=== PATIENT | female | born 2005 | race Caucasian/White ===

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

== ENCOUNTER 2025-03-01 09:39 | Outpatient (OUT) | payer OTHER, SELFPAY ==
[2025-03-01 10:01] LABS: Hematocrit 41.6 % (36.0-48.0); Hemoglobin 14.6 g/dL (12.0-16.0); Immature Granulocytes Abs Auto 0.03 10^3/uL (0.00-0.03); Immature Granulocytes Pct Auto 0.3 % (0.0-0.5); Lymphocytes Absolute Auto 2.5 10^3/uL (1.2-3.8); Mean Corpuscular HGB Conc 35.1 g/dL (29.9-35.2); Mean Corpuscular Hemoglobin 31.6 pg (26.7-34.0); Mean Corpuscular Volume 90.0 fL (81.0-99.0); Platelet Count 360 10^3/uL (150-450); Red Blood Count 4.62 10^6/uL (4.20-5.40); White Blood Count 8.7 10^3/uL (4.0-11.0)
[2025-03-01 10:46] LABS: Alanine Aminotransferase 43 U/L (14-59); Albumin Globulin Ratio 1.2; Albumin Level 4.2 g/dL (3.4-5.0); Alkaline Phosphatase 67 U/L (46-116); Anion Gap 15.4; Aspartate Amino Transferase 13 U/L (15-37); Blood Urea Nitrogen 11.0 mg/dL (6.4-19.3); Calcium 9.2 mg/dL (8.5-10.1); Carbon Dioxide 25.7 mmol/L (21.0-32.0); Chloride 104 mmol/L (98-107); Cholesterol 192 mg/dL (104-227); Estimated GFR (African America >60 (>=60 mL/min/1.73m^2); Estimated GFR (Non-African Ame >60 (>=60 mL/min/1.73m^2); Globulin 3.5 g/dL; Glucose 90 mg/dL (74-106); HDL Cholesterol 40 mg/dL (29-69); Potassium 4.1 mmol/L (3.5-5.1); Sodium 141 mmol/L (136-145); Thyroid Stimulating Hormone 1.286 uIU/mL (0.516-4.130); Total Protein 7.7 g/dL (6.4-8.2); Triglycerides 120 mg/dL (53-208); VLDL CHOLESTEROL 24.0 mg/dL
[2025-03-06 13:08] LABS: Calcitriol(1,25 di-OH Vit D) 39.8 pg/mL (24.8-81.5)
== END 2025-03-01 09:40 | disposition home or self-care (01) ==
LOC: LAB 09:41
PROVIDERS: PCP Family Medicine; Visit Provider Nurse Practitioner Psychiatric/Mental Health
DX: F43.10 Post-traumatic stress disorder, unspecified (principal); F41.9 Anxiety disorder, unspecified
CPT/HCPCS: 36415; 80053; 80061; 82652; 84443; 85025

== ENCOUNTER 2025-03-12 14:10 | Emergency (ER) | payer OTHER, SELFPAY ==
[2025-03-12] VITALS (8 sets, daily range): BP systolic 114–123; BP diastolic 57–78; PULSE 87; TEMP 36.6; O2SAT 96–99; BMI 30.7
--- OUTSIDE RECORDS SUMMARY | 2025-03-12 14:19 | XMS_ITS | CCD ---
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 pipe supervisor, Md Primary Care Provider Veronique vailable NRO, CAPRICE Admitting NRO, CAPRICE Primary Attending HANANE OLSEN Primary Attending HANANE OLSEN Admitting NRO, CAMILO Admitting NRO, CAMILO Primary Attending NRO, CAPRICE Admitting Unavailable NRO, CAPRICE Attending Unavailable NRO, CAMILO Admitting Unavailable NRO, CAMILO Attending Unavailable HANANE OLSEN Admitting Unavailable HANANE OLSEN Unavailable NRO, CAMILO Admitting Unavailable NRO, CAMILO Attending Unavailable Ginny WESTBROOK, Ten Zheng Unavailable [phone] Dominik BEAVER, Miriam Primary Care Provider Dominik BEAVER, Miriam Primary Care Provider MaxxRadha alan Unavailable Ten Gross MD Unavailable BONIFACIO BURNS Attending Unavailable CAMILO, MIRIAM Referring Unavailable CAMILO, MIRIAM Primary Care Unavailable DIPPOLD, SUNSHINE Attending Unavailable CAMILO, MIRIAM Referring Unavailable CAMILO, MIRIAM Primary Care Unavailable ALVARENGA, AUGUST ISAAC Attending Unavailable ALVARENGA, AUGUST ISAAC Referring Unavailable CAMILO, MIRIAM Primary Care Unavailable ALVARENGA, AUGUST ISAAC Attending Unavailable ALVARENGA, AUGUST ISAAC Referring Unavailable CAMILO, MIRIAM Primary Care Unavailable [...] CAMILO, MIRIAM Primary Care Unavailable ALVARENGA, AUGUST ISAAC Attending Unavailable CAMILO, MIRIAM Referring Unavailable CAMILO, [...] PAOLA LOPEZ Attending Unavailable Indy Celeste Unavailable Adan Mey Unavailable Rosalba Joe Primary Care Provider Rosalba Joe Attending Unavailab le SHARLENE VASQUEZ Attending Unavail able NO PCP, NO PCP Primary Care Unavailable GEISINGSHARLENE ORELLANA Referring Unavail able NO PCP, NO PCP [...] Unavailable Indy Celeste Unavailable Radha Lilly Unavailable Godfrey Arellanoa Unavailable System, Provider Not In Primary Care Provider Un available Indy Celeste Unavailable Radha Lilly Unavailable Godfrey Arellanoa Unavailable Rice, Merle Unavailable Allergies Allergy Classification Reported Allergen(s) Allergy Type Date of Onset Reaction(s) Facility (5 sources) Environmental allergy Propensity to adverse reactions to substance 2 [facility] Medications Current Medications Medication Drug Class(es) Dates Sig (Normalized) Sig (Original) atomoxetine 40 mg oral capsule (8 sources) Norepinephrine Reuptake Inhibitor Start: 10-01-2021 take 1 capsule by mouth once daily atomoxetine (STRATTERA) 25 MG capsule Take 25 mg by mouth daily 0 10/01/2021 Active Start: 08-14-2021 take 1 capsule by mo [facility] at bedtime atomoxetine (STRATTERA) 40 MG capsule [...] Start: 03-07-2021 take 1 tablet by tatyana once daily escitalopram (LEXAPRO) 10 MG tablet [...] 2 times daily with meals. 0 Active cyxea-2-day-epa-dp a-fish oil 1,050-1,200 mg capsule (5 sources) yxhyd-9-inw-epa- d pa-fish oil 1,050-1,200 mg capsule Take [...] dose:3.0 TAB route:PO frequency:BID polyethylene glycol 3350 95476 mg powder for oral solution (2 sources) [...] 325 MG OR TABS 04/30/2023 [place] [facility] Comment on above: Patient tolerated th erapy [...] 02/24/2022 Active take 1 capsule by mo [facility] three times daily as needed for [...] Anion gap [Moles/Vol] 9 mmol/L Normal 5-15 [facility] Comment on above: Performed By: #### C BCA, 1797-8, CMP, 3040-3, 80311-5, 29821-1 #### [facility] ([id number]) [address], [address] [place] [address] Calcium [Mass/Vol] 9.3 mg/dL Normal 8.5-10.5 [facility] Comment on above: Performed By: #### C BCA, 8-8, CMP, 3040-3, 16365-8, 34604-2 #### [facility] ([id number]) [address], [address] [place] [address] Chloride [Moles/Vol] 107 mmol/L Normal 98-109 [facility] Comment on above: Performed By: #### C BCA, 1798-8, CMP, 3040-3, 08288-0, 50599-6 #### [facility] ([id number]) [address] [address] CO2 [Moles/Vol] 24 mmol/L Normal 22-32 [facility] Comment on above: Performed By: #### C BCA, 8, CMP, 3040-3, 37632-7, 23186-0 #### [facility] ([id number]) [address] [address] Creatinine [Mass/Vol] 0.66 mg/dL Normal 0.30-1.00 [facility] Comment on above: Result Comment: METH OD TRACEABLE TO IDMS STANDARD Performed By: #### C BCA, 8, CMP, 3040-3, 35351-1, 16553-4 #### [facility] ([id number]) [address] [address] eGFR (CKD-EPI) NON-RACE DEPENDENT >90 Normal >59 [facility] Comment on above: Result Comment: Reported eGFR is based on the CKD-EPI 2020 equation that does not use a race coefficient. Performed By: #### C BCA, 8, CMP, 3040-3, 42523-2, 47253-1 #### [facility] ([id number]) [address] [address] Glucose [Mass/Vol] 85 mg/dL Normal 65-99 [facility] Comment on above: Performed By: #### C BCA, 1797-8, CMP, 3040-3, 05685-8, 35776-6 #### [facility] ([id number]) [address] [address] Potassium [Moles/Vol] 3.9 mmol/L Normal 3.5-5.0 [facility] Comment on above: Performed By: #### C BCA, 8, CMP, 3040-3, 61501-9, 64867-5 #### [facility] ([id number]) [address], [address] [place] [address] Sodium [Moles/Vol] 140 mmol/L Normal 134-146 [facility] Comment on above: Performed By: #### C BCA, 8, CMP, 3040-3, 61733-8, 50582-8 #### [facility] ([id number]) [address], [address] [place] [address] Urea nitrogen [Mass/Vol] 10 mg/dL Normal 5-23 [facility] Comment on above: Performed By: #### C BCA, 8, CMP, 3040-3, 85861-6, 93770-9 #### [facility] ([id number]) [address], [address] [place] [address] Beta hydroxybutyrate [Moles/ Vol]on 12-21-2023 BetaHydroxybutyrate 0.12 mmol/L Normal 0.02-0.27 [facility] Comment on above: Performed By: #### C BCA, 8, CMP, 3040-3, 08592-6, 74066-2 #### [facility] ([id number]) [address], [address] [place] [address] CBC AND AUTO DIFFon 12-21-19 24 ABSOLUTE BASOPHIL 0.1 X10E9/L Normal 0.0-0.2 [facility] Comment on above: Performed By: #### C BCA, 8, CMP, 3040-3, 09978-3, 24957-2 #### [facility] ([id number]) [address], [address] [place] [address] ABSOLUTE NEUTROPHIL 5.8 X10E9/L Normal 1.5-6.6 [facility] Comment on above: Performed By: #### C BCA, 1797-8, CMP, 3040-3, 67396-8, 20506-3 #### [facility] ([id number]) [address], [address] [place] [address] Basophils/100 WBC (Bld) 0.6 % Normal [facility] Comment on above: Performed By: #### C BCA, 1797-8, CMP, 3040-3, 52808-8, 09278-3 #### [facility] ([id number]) [address], [address] [place] [address] Eosinophils (Bld) [#/Vol] 0.1 10*3/uL Normal 0.0-0.4 [facility] Comment on above: Performed By: #### C BCA, 1797-8, CMP, 3040-3, 36392-8, 23471-8 #### [facility] ([id number]) [address], [address] [place] [address] Eosinophils/100 WBC (Bld) 1.0 % Normal [facility] Comment on above: Performed By: #### C BCA, 8, CMP, 3040-3, 73144-0, 98883-4 #### [facility] ([id number]) [address], [facility] [address] [place] [address] Erythrocyte distribution width (RBC) [Ratio] 13.0 % Normal 11.5-15.0 [facility] Comment on above: Performed By: #### C BCA, 1797-8, CMP, 3040-3, 97454-9, 20958-2 #### [facility] ([id number]) [address], [address] [place] [address] Hematocrit (Bld) [Volume fraction] 41.1 % Normal 35-47 [facility] Comment on above: Performed By: #### C BCA, 1797-8, CMP, 3040-3, 82481-2, 28656-5 #### [facility] ([id number]) [address], [address] [place] [address] Hemoglobin (Bld) [Mass/Vol] 14.6 g/dL Normal 11.7-15.5 [facility] Comment on above: Performed By: #### C BCA, 1798-8, CMP, 3040-3, 32521-7, 55940-0 #### [facility] ([id number]) [address], [address] [place] [address] Lymphocytes (Bld) [#/Vol] 2.9 10*3/uL Normal 1.0-3.5 [facility] Comment on above: Performed By: #### C BCA, 8-8, CMP, 3040-3, 38403-5, 50415-4 #### [facility] ([id number]) [address], [address] [place] [address] Lymphocytes/100 WBC (Bld) 29.6 % Normal [facility] Comment on above: Performed By: #### C BCA, 1797-8, CMP, 3040-3, 85131-4, 99909-9 #### [facility] ([id number]) [address], [address] [place] [address] MCH (RBC) [Entitic mass] 32.3 pg Normal 27-34 [facility] Comment on above: Performed By: #### C BCA, 8-8, CMP, 3040-3, 23705-1, 80418-3 #### [facility] ([id number]) [address], [address] [place] [address] MCHC (RBC) [Mass/Vol] 35.5 g/dL Normal 32-36 [facility] Comment on above: Performed By: #### C BCA, 1798-8, CMP, 3040-3, 07112-9, 55291-5 #### [facility] ([id number]) [address], [address] [place] [address] MCV (RBC) [Entitic vol] 91 fL Normal 80-100 [facility] Comment on above: Performed By: #### Marilyn BCA, 1797-8, CMP, 3040-3, 06869-4, 44160-3 #### [facility] ([id number]) [address], [address] [place] [address] Monocytes (Bld) [#/Vol] 0.9 10*3/uL Normal 0-0.9 [facility] Comment on above: Performed By: #### Marilyn MICHAUD, 1797-8, CMP, 3040-3, 55286-3, 58349-3 #### [facility] ([id number]) [address], [facility] [address] [place] [address] Monocytes/100 WBC (Bld) 8.9 % Normal [facility] Comment on above: Performed By: #### Marilyn BCA, 8, CMP, 3040-3, 61244-3, 46260-5 #### [facility] ([id number]) [address], [facility] [address] [place] [address] Neutrophils/100 WBC (Bld) 59.9 % Normal [facility] Comment on above: Performed By: #### Marilyn MICHAUD, 1797-8, CMP, 3040-3, 39911-2, 80688-4 #### [facility] ([id number]) [address], [address] [place] [address] Platelet mean volume (Bld) [Entitic vol] 7.2 fL Normal 7-12 [facility] Comment on above: Performed By: #### Marilyn BCA, 1797-8, CMP, 3040-3, 68260-6, 25303-0 #### [facility] ([id number]) [address], [address] [place] [address] Platelets (Bld) [#/Vol] 371 10*3/uL Normal 150-450 [facility] Comment on above: Performed By: #### C BCA, 8, CMP, 3040-3, 37448-9, 50241-9 #### [facility] ([id number]) [address], [address] [place] [address] RBC COUNT 4.51 X10E12/L Normal 3.80-5.20 [facility] Comment on above: Performed By: #### C BCA, 8, CMP, 3040-3, 28251-2, 85063-6 #### [facility] ([id number]) [address], [address] [place] [address] WBC (Bld) [#/Vol] 9.8 10*3/uL Normal 4.0-11.0 [facility] Comment on above: Performed By: #### Marilyn MICHAUD, 1797-12, CMP, 3040-3, 53555-6, 24456-5 #### [facility] ([id number]) [address], [address] [place] [address] Glucose Glucometer (BldC) [M ass/Vol]on 12-21-2023 Glucose [Mass/Vol] 80 mg/dL Normal 65-99 [facility] Glucose [Mass/Vol] 97 mg/dL Normal 65-99 [facility] HCG ( test) Ql (U)o n 12-21-2023 Beta HCG ( test) Ql (U) Negative Normal NEG [facility] Comment on above: Performed By: #### C BCA, 8, CMP, 3040-3, 77434-1, 18040-8 #### [facility] ([id number]) [address], [address] [place] [address] MAGNESIUMon 12-21-2023 Magnesium [Mass/Vol] 2.0 mg/dL Normal 1.8-2.6 [facility] Comment on above: Performed By: #### C JASWANT, 1798-8, CMP, 3040-3, 99729-0, 94275-7 #### [facility] ([id number]) [address], [address] [place] [address] THYROID PROFILEon 12-21-2023 Free T4 [Mass/Vol] 0.82 ng/dL Normal 0.61-1.60 [facility] Comment on above: Performed By: #### C BCA, 8-8, CMP, 3040-3, 25905-5, 94339-7 #### [facility] ([id number]) [address], [address] [place] [address] TSH 0.86 uIU/mL Normal 0.49-4.67 [facility] Comment on above: Performed By: #### C BCA, 1797-8, CMP, 3040-3, 16272-2, 41420-2 #### [facility] ([id number]) [address], [address] [place] [address] URN MACROSCOPIC NURon 2023 BILIRUBIN KATTY Negative Normal NEG [facility] Comment on above: Performed By: #### C BCA, 1797-8, CMP, 3040-3, 62109-1, 54257-9 #### [facility] ([id number]) [address], [address] [place] [address] BLOOD/HGB KATTY Negative Normal NEG [facility] Comment on above: Performed By: #### C BCA, 8-8, CMP, 3040-3, 32778-1, 76644-0 #### [facility] ([id number]) [address], [address] [place] [address] GLUCOSE KATTY Negative Normal NEG [facility] Comment on above: Performed By: #### C BCA, 8-8, CMP, 3040-3, 28333-3, 95862-4 #### [facility] ([id number]) [address], [address] [place] [address] KETONES KATTY Trace Abnormal NEG [facility] Comment on above: Performed By: #### C BCA, 1798-8, CMP, 3040-3, 93541-6, 42029-2 #### [facility] ([id number]) [address], [address] [place] [address] LEUKOCYTE ESTERASE KATTY Negative Normal NEG [facility] Comment on above: Performed By: #### C BCA, 8-8, CMP, 3040-3, 57392-6, 35618-8 #### [facility] ([id number]) [address], [address] [place] [address] NITRITE KATTY Negative Normal NEG [facility] Comment on above: Performed By: #### Marilyn BCA, 1797-8, CMP, 3040-3, 98909-6, 51460-8 #### [facility] ([id number]) [address], [address] [place] [address] PH KATTY 5.5 Normal 5.0-8.5 [facility] Comment on above: Performed By: #### C BCA, 8-8, CMP, 3040-3, 09272-3, 54667-2 #### [facility] ([id number]) [address], [address] [place] [address] PROTEIN KATTY Negative Normal NEG [facility] Comment on above: Performed By: #### C BCA, 8-8, CMP, 3040-3, 24563-2, 73235-5 #### [facility] ([id number]) [address], [address] [place] [address] SPECIFIC GRAVITY KATTY >=1.030 Normal 1.003-1.035 [facility] Comment on above: Performed By: #### C BCA, 1798-8, CMP, 3040-3, 15560-1, 07888-2 #### [facility] ([id number]) [address], [address] [place] [address] UROBILINOGEN KATTY 0.2 eu/dL Normal <1.1 [facility] Comment on above: Performed By: #### C JASWANT, 1797-8, CMP, 3040-3, 46118-6, 34480-0 #### [facility] ([id number]) [address], [address] [place] [address] Urine collection deviceon ER EXTRA URINES ER EXTRA URINE ORDER IN PROCESS Normal [facility] XR ANKLE RT MIN 3 VWSon XR [...] Doshi MD on 12/07/2023 1:05 PM Normal [facility] CBC AND AUTO DIFFon 11-04-19 24 ABSOLUTE BASOPHIL 0.1 X10E9/L Normal 0.0-0.2 [facility] Comment on above: Performed By: #### C JASWANT, 8, CMP, 3040-3, 77172-2, 46618-5 #### [facility] ([id number]) [address], [address] [place] [address] ABSOLUTE NEUTROPHIL 3.8 X10E9/L Normal 1.5-6.6 [facility] Comment on above: Performed By: #### C JASWANT, 1797-8, CMP, 3040-3, 09562-8, 37950-2 #### [facility] ([id number]) [address], [address] [place] [address] Basophils/100 WBC (Bld) 0.8 % Normal [facility] Comment on above: Performed By: #### C BCA, 1797-8, CMP, 3040-3, 20486-7, 08772-8 #### [facility] ([id number]) [address], [address] [place] [address] Eosinophils (Bld) [#/Vol] 0.1 10*3/uL Normal 0.0-0.4 [facility] Comment on above: Performed By: #### C BCA, 1797-8, CMP, 3040-3, 78427-7, 28813-6 #### [facility] ([id number]) [address], [address] [place] [address] Eosinophils/100 WBC (Bld) 1.3 % Normal [facility] Comment on above: Performed By: #### C BCA, 8, CMP, 3040-3, 19438-0, 17710-2 #### [facility] ([id number]) [address], [address] [place] [address] Erythrocyte distribution width (RBC) [Ratio] 12.8 % Normal 11.5-15.0 [facility] Comment on above: Performed By: #### C BCA, 8, CMP, 3040-3, 77616-6, 19456-4 #### [facility] ([id number]) [address], [address] [place] [address] Hematocrit (Bld) [Volume fraction] 41.7 % Normal 34-44 [facility] Comment on above: Performed By: #### C BCA, 1797-8, CMP, 3040-3, 06763-2, 47571-7 #### [facility] ([id number]) [address], [address] [place] [address] Hemoglobin (Bld) [Mass/Vol] 14.4 g/dL Normal 11.7-15.5 [facility] Comment on above: Performed By: #### C BCA, 1797-8, CMP, 3040-3, 32175-2, 11614-7 #### [facility] ([id number]) [address], [address] [place] [address] Lymphocytes (Bld) [#/Vol] 2.8 10*3/uL Normal 1.0-3.5 [facility] Comment on above: Performed By: #### C BCA, 1797-8, CMP, 3040-3, 63126-5, 22394-6 #### [facility] ([id number]) [address], [facility] [address] [place] [address] Lymphocytes/100 WBC (Bld) 37.2 % Normal [facility] Comment on above: Performed By: #### C BCA, 1797-8, CMP, 3040-3, 66232-2, 48672-2 #### [facility] ([id number]) [address], [address] [place] [address] MCH (RBC) [Entitic mass] 31.7 pg Normal 26-33.5 [facility] Comment on above: Performed By: #### C BCA, 8, CMP, 3040-3, 11960-9, 02411-4 #### [facility] ([id number]) [address], [address] [place] [address] MCHC (RBC) [Mass/Vol] 34.5 g/dL Normal 32-36 [facility] Comment on above: Performed By: #### C BCA, 1797-8, CMP, 3040-3, 21955-5, 29582-0 #### [facility] ([id number]) [address], [address] [place] [address] MCV (RBC) [Entitic vol] 92 fL Normal 78-98 [facility] Comment on above: Performed By: #### C BCA, 1797-8, CMP, 3040-3, 38686-9, 93442-0 #### [facility] ([id number]) [address], [address] [place] [address] Monocytes (Bld) [#/Vol] 0.8 10*3/uL Normal 0-0.9 [facility] Comment on above: Performed By: #### C BCA, 1797-8, CMP, 3040-3, 07117-7, 89399-7 #### [facility] ([id number]) [address], [address] [place] [address] Monocytes/100 WBC (Bld) 10.8 % Normal [facility] Comment on above: Performed By: #### Marilyn BCA, 1797-8, CMP, 3040-3, 98670-8, 87302-2 #### [facility] ([id number]) [address], [address] [place] [address] Neutrophils/100 WBC (Bld) 49.9 % Normal [facility] Comment on above: Performed By: #### Marilyn BCA, 1797-8, CMP, 3040-3, 05501-1, 11488-2 #### [facility] ([id number]) [address], [address] [place] [address] Platelet mean volume (Bld) [Entitic vol] 7.5 fL Normal 7-12 [facility] Comment on above: Performed By: #### C BCA, 1797-8, CMP, 3040-3, 38481-9, 50843-1 #### [facility] ([id number]) [address], [address] [place] [address] Platelets (Bld) [#/Vol] 370 10*3/uL Normal 150-450 [facility] Comment on above: Performed By: #### C BCA, 8-8, CMP, 3040-3, 90009-6, 10413-2 #### [facility] ([id number]) [address], [address] [place] [address] RBC COUNT 4.54 X10E12/L Normal 3.90-5.10 [facility] Comment on above: Performed By: #### C BCA, 1798-8, CMP, 3040-3, 81881-4, 51169-6 #### [facility] ([id number]) [address], [address] [place] [address] WBC (Bld) [#/Vol] 7.6 10*3/uL Normal 4.5-11.5 [facility] Comment on above: Performed By: #### C BCA, 1798-8, CMP, 3040-3, 14628-5, 16755-6 #### [facility] ([id number]) [address] [place] [address] COMPREHENSIVE METABOLIC PANE Jethro 11-04-2023 Albumin [Mass/Vol] 4.7 g/dL Normal 3.2-5.3 [facility] Comment on above: Performed By: #### C BCA, 1798-8, CMP, 3040-3, 69487-7, 63122-1 #### [facility] ([id number]) [address], [address] [place] [address] ALP [Catalytic activity/Vol] 63 U/L Normal 48-96 [facility] Comment on above: Performed By: #### C BCA, 1798-8, CMP, 3040-3, 69792-9, 34319-1 #### [facility] ([id number]) [address], [address] [place] [address] ALT [Catalytic activity/Vol] 31 U/L Normal 0-31 [facility] Comment on above: Performed By: #### C BCA, 1798-8, CMP, 3040-3, 88635-2, 82430-2 #### [facility] ([id number]) [address], [address] [place] [address] Anion gap [Moles/Vol] 9 mmol/L Normal 5-15 [facility] Comment on above: Performed By: #### C BCA, 1797-8, CMP, 3040-3, 94508-7, 96262-0 #### [facility] ([id number]) [address], [address] [place] [address] AST [Catalytic activity/Vol] 23 U/L Normal 0-41 [facility] Comment on above: Performed By: #### C BCA, 1797-8, CMP, 3040-3, 15246-7, 88679-0 #### [facility] ([id number]) [address], [address] [place] [address] Bilirubin [Mass/Vol] 0.5 mg/dL Normal 0.3-1.2 [facility] Comment on above: Performed By: #### C BCA, 8, CMP, 3040-3, 18938-1, 29021-6 #### [facility] ([id number]) [address], [address] [place] [address] Calcium [Mass/Vol] 9.9 mg/dL Normal 8.5-10.5 [facility] Comment on above: Performed By: #### C BCA, 1797-8, CMP, 3040-3, 14337-4, 87050-6 #### [facility] ([id number]) [address], [address] [place] [address] Chloride [Moles/Vol] 108 mmol/L Normal 98-109 [facility] Comment on above: Performed By: #### C BCA, 1797-8, CMP, 3040-3, 59989-8, 88773-8 #### [facility] ([id number]) [address], [address] [place] [address] CO2 [Moles/Vol] 24 mmol/L Normal 22-32 [facility] [facility] Comment on above: Performed By: #### C BCA, 1797-8, CMP, 3040-3, 94378-6, 47156-4 #### [facility] ([id number]) [address], [address] [place] [address] Creatinine [Mass/Vol] 0.63 mg/dL Normal 0.30-1.00 [facility] Comment on above: Result Comment: METH OD TRACEABLE TO IDMS STANDARD Performed By: #### C BCA, 1797-8, CMP, 3040-3, 07649-0, 09276-8 #### [facility] ([id number]) [address], [address] [place] [address] Glucose [Mass/Vol] 73 mg/dL Normal 65-99 [facility] Comment on above: Performed By: #### C BCA, 1797-8, CMP, 3040-3, 28089-5, 34901-7 #### [facility] ([id number]) [address], [address] [place] [address] Potassium [Moles/Vol] 4.0 mmol/L Normal 3.5-5.0 [facility] Comment on above: Performed By: #### C BCA, 1797-8, CMP, 3040-3, 99590-7, 95886-0 #### [facility] ([id number]) [address], [address] [place] [address] Protein [Mass/Vol] 7.3 g/dL Normal 6.0-8.0 [facility] Comment on above: Performed By: #### C BCA, 1797-8, CMP, 3040-3, 83978-0, 55783-3 #### [facility] ([id number]) [address], [address] [place] [address] Sodium [Moles/Vol] 141 mmol/L Normal 134-146 [facility] Comment on above: Performed By: #### C BCA, 8-8, CMP, 3040-3, 24938-1, 19559-9 #### [facility] ([id number]) [address], [address] [place] [address] Urea nitrogen [Mass/Vol] 11 mg/dL Normal 5-23 [facility] Comment on above: Performed By: #### C BCA, 8-8, CMP, 3040-3, 90576-2, 44708-7 #### [facility] ([id number]) [address], [address] [place] [address] TSH Qnon 11-04-2023 TSH 1.44 uIU/mL Normal 0.68-3.35 [facility] Comment on above: Performed By: #### C BCA, 1797-8, CMP, 3040-3, 94929-3, 16102-3 #### [facility] ([id number]) [address], [address] [place] [address] URINALYSISon 11-04-2023 Bilirubin Ql (U) Negative Normal NEG [facility] Comment on above: Performed By: #### C BCA, 1797-8, CMP, 3040-3, 54329-8, 89843-8 #### [facility] ([id number]) [address], [address] [place] [address] BLOOD/HGB MODERATE Abnormal NEG [facility] Comment on above: Performed By: #### C BCA, 8-8, CMP, 3040-3, 84494-5, 95637-2 #### [facility] ([id number]) [address], [address] [place] [address] Color (U) YELLOW Normal YELLOW [facility] Comment on above: Performed By: #### C BCA, 8-8, CMP, 3040-3, 53270-8, 85497-5 #### [facility] ([id number]) [address], [address] [place] [address] Glucose Ql (U) Negative Normal NEG [facility] Comment on above: Performed By: #### C BCA, 1798-8, CMP, 3040-3, 06898-6, 85772-5 #### [facility] ([id number]) [address], [address] [place] [address] Ketones Ql (U) Negative Normal NEG [facility] Comment on above: Performed By: #### C BCA, 8-8, CMP, 3040-3, 72884-2, 60688-9 #### [facility] ([id number]) [address], [address] [place] [address] Leukocyte esterase Test strip Ql (U) Negative Normal NEG [facility] Comment on above: Performed By: #### Marilyn BCA, 8-8, CMP, 3040-3, 87705-5, 33890-2 #### [facility] ([id number]) [address], [address] [place] [address] MUCOUS PRESENT Abnormal NONE [facility] Comment on above: Performed By: #### C BCA, 8-8, CMP, 3040-3, 95703-1, 51244-8 #### [facility] ([id number]) [address], [address] [place] [address] Nitrite Ql (U) Negative Normal NEG [facility] Comment on above: Performed By: #### C BCA, 8-8, CMP, 3040-3, 85154-2, 64937-4 #### [facility] ([id number]) [address], [address] [place] [address] pH (U) 6.0 [pH] Normal 5.0-8.5 [facility] Comment on above: Performed By: #### C BCA, 8-8, CMP, 3040-3, 72331-7, 95179-8 #### [facility] ([id number]) [address], [address] [place] [address] Protein Ql (U) Negative Normal NEG [facility] Comment on above: Performed By: #### C BCA, 8-8, CMP, 3040-3, 98817-3, 61813-7 #### [facility] ([id number]) [address], [address] [place] [address] R.B.CELLS 1 /hpf Normal 0-5 [facility] Comment on above: Performed By: #### C BCA, 1797-8, CMP, 3040-3, 28695-6, 34464-7 #### [facility] ([id number]) [address], [address] [place] [address] Specific gravity (U) [Rel density] 1.018 Normal 1.003-1.035 [facility] Comment on above: Performed By: #### C BCA, 1797-8, CMP, 3040-3, 38133-8, 63373-7 #### [facility] ([id number]) [address], [address] [place] [address] SQUAMOUS EPITHELIUM <1 Normal 0-5 [facility] Comment on above: Performed By: #### C BCA, 1797-8, CMP, 3040-3, 06156-9, 84948-0 #### [facility] ([id number]) [address], [address] [place] [address] TURBIDITY CLEAR Normal CLEAR [facility] Comment on above: Performed By: #### C BCA, 8-8, CMP, 3040-3, 93003-2, 86942-0 #### [facility] ([id number]) [address], [address] [place] [address] Urobilinogen (U) [Mass/Vol] mg/dL Normal <1.1 [facility] Comment on above: Performed By: #### C JASWANT, 1797-8, CMP, 3040-3, 46070-3, 40639-1 #### [facility] ([id number]) [address], [address] [place] [address] W.B.CELLS 1 /hpf Normal 0-5 [facility] Comment on above: Performed By: #### C BCA, 1797-8, CMP, 3040-3, 17910-9, 56014-0 #### [facility] ([id number]) [address], [address] [place] [address] AMYLASEon 10-22-2023 Amylase [Catalytic activity/Vol] 25 U/L Low 28-100 [facility] Comment on above: Performed By: #### Marilyn MICHAUD, 8, CMP, 3040-3, 45271-6, 27873-4 #### [facility] ([id number]) [address], [address] [place] [address] CBC AND AUTO DIFFon 10-22-19 ABSOLUTE BASOPHIL 0.0 X10E9/L Normal 0.0-0.2 [facility] Comment on above: Performed By: #### C JASWANT, 8, CMP, 3040-3, 24030-7, 24483-9 #### [facility] ([id number]) [address], [address] [place] [address] ABSOLUTE NEUTROPHIL 5.9 X10E9/L Normal 1.5-6.6 [facility] Comment on above: Performed By: #### C BCA, 1797-8, CMP, 3040-3, 96233-1, 00806-3 #### [facility] ([id number]) [address], [address] [place] [address] Basophils/100 WBC (Bld) 0.5 % Normal [facility] Comment on above: Performed By: #### C BCA, 1797-8, CMP, 3040-3, 59874-0, 53441-2 #### [facility] ([id number]) [address] [address] Eosinophils (Bld) [#/Vol] 0.1 10*3/uL Normal 0.0-0.4 [facility] Comment on above: Performed By: #### C BCA, 1797-8, CMP, 3040-3, 83778-6, 40357-1 #### [facility] ([id number]) [address] [address] Eosinophils/100 WBC (Bld) 1.2 % Normal [facility] Comment on above: Performed By: #### C BCA, 8, CMP, 3040-3, 11227-6, 48319-0 #### [facility] ([id number]) [address] [address] Erythrocyte distribution width (RBC) [Ratio] 13.0 % Normal 11.5-15.0 [facility] Comment on above: Performed By: #### C BCA, 8, CMP, 3040-3, 77170-0, 83924-8 #### [facility] ([id number]) [address] [address] Hematocrit (Bld) [Volume fraction] 40.9 % Normal 34-44 [facility] Comment on above: Performed By: #### C BCA, 1797-8, CMP, 3040-3, 33729-9, 47324-9 #### [facility] ([id number]) [address] [address] Hemoglobin (Bld) [Mass/Vol] 14.3 g/dL Normal 11.7-15.5 [facility] Comment on above: Performed By: #### C BCA, 1797-8, CMP, 3040-3, 67868-2, 29228-7 #### [facility] ([id number]) [address], [address] [place] [address] Lymphocytes (Bld) [#/Vol] 2.7 10*3/uL Normal 1.0-3.5 [facility] Comment on above: Performed By: #### C BCA, 1797-8, CMP, 3040-3, 07927-7, 44643-5 #### [facility] ([id number]) [address], [address] [place] [address] Lymphocytes/100 WBC (Bld) 28.4 % Normal [facility] Comment on above: Performed By: #### C BCA, 1797-8, CMP, 3040-3, 56284-8, 49294-5 #### [facility] ([id number]) [address], [address] [place] [address] MCH (RBC) [Entitic mass] 31.9 pg Normal 26-33.5 [facility] Comment on above: Performed By: #### C BCA, 1797-8, CMP, 3040-3, 89379-1, 69847-8 #### [facility] ([id number]) [address], [address] [place] [address] MCHC (RBC) [Mass/Vol] 34.9 g/dL Normal 32-36 [facility] Comment on above: Performed By: #### C BCA, 8-8, CMP, 3040-3, 92409-6, 37544-1 #### [facility] ([id number]) [address], [facility] [address] [place] [address] MCV (RBC) [Entitic vol] 92 fL Normal 78-98 [facility] Comment on above: Performed By: #### C BCA, 8-8, CMP, 3040-3, 89851-0, 88279-8 #### [facility] ([id number]) [address], [address] [place] [address] Monocytes (Bld) [#/Vol] 0.7 10*3/uL Normal 0-0.9 [facility] Comment on above: Performed By: #### C BCA, 8-8, CMP, 3040-3, 35248-6, 86893-4 #### [facility] ([id number]) [address], [address] [place] [address] Monocytes/100 WBC (Bld) 7.8 % Normal [facility] Comment on above: Performed By: #### Marilyn BCA, 1797-8, CMP, 3040-3, 75342-8, 06218-3 #### [facility] ([id number]) [address], [address] [place] [address] Neutrophils/100 WBC (Bld) 62.1 % Normal [facility] Comment on above: Performed By: #### Marilyn BCA, 1797-8, CMP, 3040-3, 01681-3, 98087-1 #### [facility] ([id number]) [address], [address] [place] [address] Platelet mean volume (Bld) [Entitic vol] 6.8 fL Low 7-12 [facility] Comment on above: Performed By: #### Marilyn BCA, 1797-8, CMP, 3040-3, 78001-1, 16919-4 #### [facility] ([id number]) [address], [address] [place] [address] Platelets (Bld) [#/Vol] 348 10*3/uL Normal 150-450 [facility] Comment on above: Performed By: #### C BCA, 1797-8, CMP, 3040-3, 86750-2, 67010-1 #### [facility] ([id number]) [address], [address] [place] [address] RBC COUNT 4.46 X10E12/L Normal 3.90-5.10 [facility] Comment on above: Performed By: #### C BCA, 1798-8, CMP, 3040-3, 49187-6, 14474-6 #### [facility] ([id number]) [address], [address] [place] [address] WBC (Bld) [#/Vol] 9.5 10*3/uL Normal 4.5-11.5 [facility] Comment on above: Performed By: #### C BCA, 8-8, CMP, 3040-3, 18919-0, 36625-7 #### [facility] ([id number]) [address], [address] [place] [address] COMPREHENSIVE METABOLIC PANE Jehtro 10-22-2023 Albumin [Mass/Vol] 4.4 g/dL Normal 3.2-5.3 [facility] Comment on above: Performed By: #### C BCA, 8-8, CMP, 3040-3, 86605-6, 93301-3 #### [facility] ([id number]) [address], [address] [place] [address] ALP [Catalytic activity/Vol] 61 U/L Normal 48-96 [facility] Comment on above: Performed By: #### C BCA, 8-8, CMP, 3040-3, 06816-4, 79354-2 #### [facility] ([id number]) [address], [address] [place] [address] ALT [Catalytic activity/Vol] 27 U/L Normal 0-31 [facility] Comment on above: Performed By: #### C BCA, 1798-8, CMP, 3040-3, 22210-8, 13795-9 #### [facility] ([id number]) [address], [address] [place] [address] Anion gap [Moles/Vol] 9 mmol/L Normal 5-15 [facility] [place] [facility] Comment on above: Performed By: #### C BCA, 1797-8, CMP, 3040-3, 39944-6, 42766-2 #### [facility] ([id number]) [address], [address] [place] [address] AST [Catalytic activity/Vol] 25 U/L Normal 0-41 [facility] Comment on above: Performed By: #### C BCA, 1797-8, CMP, 3040-3, 62792-8, 09240-0 #### [facility] ([id number]) [address], [address] [place] [address] Bilirubin [Mass/Vol] 0.5 mg/dL Normal 0.3-1.2 [facility] Comment on above: Performed By: #### C BCA, 8, CMP, 3040-3, 07244-6, 97054-9 #### [facility] ([id number]) [address], [address] [place] [address] Calcium [Mass/Vol] 9.6 mg/dL Normal 8.5-10.5 [facility] Comment on above: Performed By: #### C BCA, 8, CMP, 3040-3, 06341-9, 05767-9 #### [facility] ([id number]) [address], [address] [place] [address] Chloride [Moles/Vol] 106 mmol/L Normal 98-109 [facility] Comment on above: Performed By: #### C BCA, 1797-8, CMP, 3040-3, 45338-9, 57132-2 #### [facility] ([id number]) [address], [address] [place] [address] CO2 [Moles/Vol] 25 mmol/L Normal 22-32 [facility] Comment on above: Performed By: #### C BCA, 1798-8, CMP, 3040-3, 90666-6, 10519-4 #### [facility] ([id number]) [address], [address] [place] [address] Creatinine [Mass/Vol] 0.66 mg/dL Normal 0.30-1.00 [facility] Comment on above: Result Comment: METH OD TRACEABLE TO IDMS STANDARD Performed By: #### C BCA, 1797-8, CMP, 3040-3, 35329-6, 50678-1 #### [facility] ([id number]) [address], [address] [place] [address] Glucose [Mass/Vol] 81 mg/dL Normal 65-99 [facility] Comment on above: Performed By: #### C BCA, 1797-8, CMP, 3040-3, 85041-2, 77367-5 #### [facility] ([id number]) [address], [address] [place] [address] Potassium [Moles/Vol] 4.1 mmol/L Normal 3.5-5.0 [facility] Comment on above: Performed By: #### C BCA, 8, CMP, 3040-3, 65627-1, 90330-0 #### [facility] ([id number]) [address], [address] [place] [address] Protein [Mass/Vol] 7.0 g/dL Normal 6.0-8.0 [facility] Comment on above: Performed By: #### C BCA, 1797-8, CMP, 3040-3, 78603-7, 03518-7 #### [facility] ([id number]) [address], [address] [place] [address] Sodium [Moles/Vol] 140 mmol/L Normal 134-146 [facility] Comment on above: Performed By: #### C BCA, 1797-8, CMP, 3040-3, 92083-1, 14585-8 #### [facility] ([id number]) [address], [address] [place] [address] Urea nitrogen [Mass/Vol] 15 mg/dL Normal 10-21 [facility] Comment on above: Performed By: #### C BCA, 1798-8, CMP, 3040-3, 30930-3, 26946-5 #### [facility] ([id number]) [address], [address] [place] [address] CT ABDOMEN AND PELVIS W CONT on [...] Fischer MD on 10/22/2023 7:56 PM Normal [facility] CT BRAIN WO CONTon CT BRAIN WO [...] Montanez MD on 10/22/2023 2:57 PM Normal [facility] CT CERVICAL SPINE WO CONTon 10-22-2023 CT [...] Montanez MD on 10/22/2023 2:58 PM Normal [facility] Fibrinogen Coagulation.deriv ed (PPP) [Mass/Vol]on 10-22-2023 FIBRINOGEN 215 mg/dL Normal 190-480 [facility] Comment on above: Performed By: #### C BCA, 1798-8, CMP, 3040-3, 89066-2, 76754-0 #### [facility] ([id number]) [address], [address] [place] [address] HCG ( test) IA.adair d Ql (S)on 10-22-2023 SERUM Negative Normal NEG [facility] Comment on above: Performed By: #### C BCA, 1798-8, CMP, 3040-3, 42049-6, 00529-0 #### [facility] ([id number]) [address], [address] [place] [address] LIPASEon 10-22-2023 Lipase [Catalytic activity/Vol] 21 U/L Normal 11-82 [facility] Comment on above: Performed By: #### C BCA, 1798-8, CMP, 3040-3, 87657-3, 75421-5 #### [facility] ([id number]) [address], [address] [place] [address] URINALYSISon 10-22-2023 Bilirubin Ql (U) Negative Normal NEG [facility] Comment on above: Performed By: #### C BCA, 1798-8, CMP, 3040-3, 68584-3, 84150-9 #### [facility] ([id number]) [address], [address] [place] [address] BLOOD/HGB MODERATE Abnormal NEG [facility] Comment on above: Performed By: #### C BCA, 1798-8, CMP, 3040-3, 72429-9, 97831-2 #### [facility] ([id number]) [address], [address] [place] [address] Color (U) YELLOW Normal YELLOW [facility] Comment on above: Performed By: #### C BCA, 1797-8, CMP, 3040-3, 30519-9, 19061-7 #### [facility] ([id number]) [address], [address] [place] [address] Glucose Ql (U) Negative Normal NEG [facility] Comment on above: Performed By: #### C BCA, 1797-8, CMP, 3040-3, 40514-6, 17155-1 #### [facility] ([id number]) [address], [address] [place] [address] Ketones Ql (U) Negative Normal NEG [facility] Comment on above: Performed By: #### C BCA, 1798-8, CMP, 3040-3, 01365-6, 82519-1 #### [facility] ([id number]) [address], [address] [place] [address] Leukocyte esterase Test strip Ql (U) Negative Normal NEG [facility] Comment on above: Performed By: #### C BCA, 8-8, CMP, 3040-3, 88935-8, 20104-1 #### [facility] ([id number]) [address], [address] [place] [address] MUCOUS PRESENT Abnormal NONE [facility] Comment on above: Performed By: #### C BCA, 1797-8, CMP, 3040-3, 42694-1, 45575-7 #### [facility] ([id number]) [address], [address] [place] [address] Nitrite Ql (U) Negative Normal NEG [facility] Comment on above: Performed By: #### C BCA, 1797-8, CMP, 3040-3, 45707-3, 73053-3 #### [facility] ([id number]) [address], [address] [place] [address] pH (U) 6.0 [pH] Normal 5.0-8.5 [facility] Comment on above: Performed By: #### C BCA, 1797-8, CMP, 3040-3, 93551-3, 59297-2 #### [facility] ([id number]) [address], [address] [place] [address] Protein Ql (U) Negative Normal NEG [facility] Comment on above: Performed By: #### C BCA, 1797-8, CMP, 3040-3, 46004-4, 37587-7 #### [facility] ([id number]) [address], [address] [place] [address] R.B.CELLS <1 Normal 0-5 [facility] Comment on above: Performed By: #### C BCA, 8-8, CMP, 3040-3, 52071-1, 38407-1 #### [facility] ([id number]) [address], [address] [place] [address] Specific gravity (U) [Rel density] 1.019 Normal 1.003-1.035 [facility] Comment on above: Performed By: #### Marilyn BCA, 1798-8, CMP, 3040-3, 49684-7, 49186-2 #### [facility] ([id number]) [address] [address] SQUAMOUS EPITHELIUM 1 /hpf Normal 0-5 [facility] Comment on above: Performed By: #### Marilyn BCA, 8-8, CMP, 3040-3, 48367-5, 26894-7 #### [facility] ([id number]) [address] [address] TURBIDITY CLEAR Normal CLEAR [facility] Comment on above: Performed By: #### Marilyn BCA, 1797-8, CMP, 3040-3, 04545-3, 81513-6 #### [facility] ([id number]) [address] [address] Urobilinogen (U) [Mass/Vol] mg/dL Normal <1.1 [facility] Comment on above: Performed By: #### Marilyn BCA, 8-8, CMP, 3040-3, 99831-3, 81398-2 #### [facility] ([id number]) [address] [address] W.B.CELLS 1 /hpf Normal 0-5 [facility] Comment on above: Performed By: #### Marilyn BCA, 8-8, CMP, 3040-3, 58627-4, 81104-9 #### [facility] ([id number]) [address] [address] XR FEMUR LT 2+ VIEWSon 10-21 XR FEMUR LT 2+ VIEWS XR FEMUR LT 2+ VIEW S XR FEMUR LT 2+ VIEWS INDICATION: major traumatic injury; Trauma. Left leg pain FINDINGS: No hip fracture or dislocation. No left femur fracture. No radiopaque foreign body. IMPRESSION: 1. No acute findings. Finalized by Alvin Baca MD on 10/22/2023 2:46 PM Normal [facility] XR PELVIS 1 OR 2 VWSon 10-21 XR PELVIS 1 OR 2 VWS XR PELVIS 1 OR 2 VW S XR PELVIS 1 OR 2 VWS HISTORY: trauma. Pelvic pain COMPARISON: none IMPRESSION: No displaced or pelvic fracture seen. Finalized by Hemant Fischer MD on 10/22/2023 4:10 PM Normal [facility] XR SPINE CERVICAL FLEXION/EX TENSION ONLYon 10-22-2023 [...] Fischer MD on 10/22/2023 5:52 PM Normal [facility] XR SPINE LUMBAR 2 OR 3 VWSon 10-22-2023 XR SPINE LUMBAR 2 OR 3 VWS XR SPINE LUMBAR 2 OR 3 VWS History: trauma Exam/Technique: 3 views lumbar spine Comparison: No relevant prior studies available. Findings: Vertebral body heights, intervertebral disc spaces and gross alignment are well preserved. IMPRESSION: Unremarkable osseous exam. Finalized by Kirit Galloway MD on 10/22/2023 4:12 PM Normal [facility] CBC AND ELECTRONIC DIFFon Basophils (Bld) [#/Vol] 0.0 10*3/uL Normal 0.0-0.2 [facility] Basophils/100 WBC (Bld) 0.5 % Normal [facility] Eosinophils (Bld) [#/Vol] 0.1 10*3/uL Normal 0.0-0.6 [facility] Eosinophils/100 WBC (Bld) 0.9 % Normal [facility] Hematocrit (Bld) [Volume fraction] 42.1 % Normal 35.3-44.9 [facility] Hemoglobin (Bld) [Mass/Vol] 14.6 g/dL Normal 11.5-15.4 [facility] Lymphocytes (Bld) [#/Vol] 2.8 10*3/uL Normal 0.6-4.6 [facility] Lymphocytes/100 WBC (Bld) 31.4 % Normal [facility] MCV (RBC) [Entitic vol] 89.8 fL Normal 83.0-100.0 [facility] Mean Cell Hgb 31.2 pg Normal 28.0-33.0 [facility] Mean Cell Hgb Conc 34.7 g/dL Normal 31.6-35.5 [facility] Monocytes (Bld) [#/Vol] 0.9 10*3/uL Normal 0.0-1.3 [facility] Monocytes/100 WBC (Bld) 9.9 % Normal [facility] Nucleated RBC 0 /100 WBC Normal [facility] Platelet mean volume (Bld) [Entitic vol] 6.8 fL Low 9.4-12.4 [facility] Platelets (Bld) [#/Vol] 367 10*3/uL Normal 140-400 [facility] RBC (Bld) [#/Vol] 4.68 10*6/uL Normal 3.82-4.97 [facility] RBC Distribution 13.6 % Normal 11.0-14.8 [facility] Segs + Bands Auto 57.3 % Normal [facility] Segs + Bands,Absolute Auto 5.1 K/uL Normal 1.6-8.9 [facility] WBC (Bld) [#/Vol] 8.9 10*3/uL Normal 4.3-11.1 [facility] COMPREHENSIVE METABOLIC PANE Jethro 08-07-2022 Albumin [Mass/Vol] 4.6 g/dL Normal 3.5-5.7 [facility] Albumin/Globulin [Mass ratio] 2.2 {ratio} Normal 1.1-2.2 [facility] ALP [Catalytic activity/Vol] 60 U/L Normal 34-104 [facility] ALT [Catalytic activity/Vol] 52 U/L Normal 7-52 [facility] AST [Catalytic activity/Vol] 31 U/L Normal 13-39 [facility] Bilirubin [Mass/Vol] 0.7 mg/dL Normal 0.3-1.0 [facility] Calcium [Mass/Vol] 9.1 mg/dL Normal 8.6-10.3 [facility] Chloride [Moles/Vol] 108 mmol/L High 98-107 [facility] CO2 [Moles/Vol] 26 mmol/L Normal 23-29 [facility] Creatinine [Mass/Vol] 0.82 mg/dL Normal 0.60-1.20 [facility] eGFR, CKD-EPI, Female Normal [facility] Comment on above: Result Comment: eGFR rate not calculated on individuals less than 18 years of age. Globulin (S) [Mass/Vol] 2.1 g/dL Low 2.4-3.5 [facility] Glucose [Mass/Vol] 75 mg/dL Normal 70-105 [facility] Osmolality [Osmolality] 286 mosm/kg Normal 280-300 [facility] Potassium [Moles/Vol] 4.0 mmol/L Normal 3.5-5.1 [facility] Protein [Mass/Vol] 6.7 g/dL Normal 6.4-8.9 [facility] Sodium [Moles/Vol] 139 mmol/L Normal 136-145 [facility] Urea nitrogen [Mass/Vol] 12 mg/dL Normal 5-18 [facility] Urea nitrogen/Creatinine [Mass ratio] 15 mg/mg Normal 6-26 [facility] HEMOGLOBIN A1Con 08-07-2022 Glucose [Mass/Vol] 91 mg/dL Normal [facility] Comment on above: Result Comment: Davey mated glucose calculated using (28.7 x HGBA1C) - 46.7 HbA1c (Bld) [Mass fraction] 4.8 % Normal <5.7 [facility] Comment on above: Result Comment: ADA Recommendations: Normal........ less than 5.7% Prediabetes... 5.7% to 6.4% Diabetes...... 6.5% or higher Glycemic Goal (known diabetics): < 8%...... Less stringent < 7%...... General (non- adults) < 6.5%.... More stringent TSHon 08-07-2022 TSH, High Sensitivity 1.494 uIU/mL Normal 0.340-5.600 [facility] PROLACTINon 07-25-2022 Prolactin 8.95 ng/mL Normal 3.80-23.20 [facility] XR KNEE 4+ VIEW RIGHTon XR KNEE 4+ [place] [address] MEDICAL IMAGING DEPARTMENT PATIENT NAME: WHIT ARMSTRONG ORDER: BIRTHDATE: 2005 ACCT: [id number] DOCTOR: MR: LOCATION: [facility] XR KNEE 4+ VIEW RIGHT ORDERING DOCTOR: [...] manner consistent with medical record policies. Normal [facility] XR Knee - right 4 Viewson IMPRESSION: Normal study AJIT FAIRCHILD M.D. This document has been electronically reviewed and approved by AJIT FAIRCHILD M.D. The above information is part of the patient's medical record and should be maintained in a confidential manner consistent with medical record policies. [place] [address] MEDICAL IMAGING DEPARTMENT PATIENT NAME: WHIT ARMSTRONG ORDER: BIRTHDATE: 2005 ACCT: [id number] DOCTOR: , MR: LOCATION: [facility] XR KNEE 4+ VIEW RIGHT ORDERING DOCTOR: [...] in the trochlear notch. MEDICAL IMAGING AT Ajit Odonnell MD - 07/08/2022 [place] [address] MEDICAL IMAGING DEPARTMENT PATIENT NAME: WHIT ARMSTRONG ORDER: BIRTHDATE: 2005 ACCT: [id number] DOCTOR: , MR: LOCATION: [facility] -- XR KNEE 4+ VIEW RIGHT ORDERING [...] confidential manner consistent with medical record policies. [facility] Radiology Study observation (narrative) [facility] XR Knee - right 4 ViewsOrder ed By: Ajit Fairchild on 07-08-2022 [facility] Work Phone: INFLUENZA A/B ANTIGENon 06-01 Influenza A Antigen Negative Normal Negative [facility] Influenza B Antigen Negative Normal Negative [facility] RAPID STREP A ANTIGENon 06-01 S. pyogenes Ag IA Ql (Unsp spec) Negative Normal Negative [facility] UPPER RESPIRATORY CULTURE, B ACTERIALon 06-11-2022 Bacteria identified Cx Nom (Unsp spec) Negative Normal [facility] Comment on above: Order Comment: No be ta hemolytic strep recovered. INFLUENZA A/B ANTIGENon Influenza A Antigen Negative Normal Negative [facility] Influenza B Antigen Negative Normal Negative [facility] RAPID STREP A ANTIGENon S. pyogenes Ag IA Ql (Unsp spec) Negative Normal Negative [facility] UPPER RESPIRATORY CULTURE, B ACTERIALon 06-03-2022 Bacteria identified Cx Nom (Unsp spec) Normal [facility] Comment on above: Result Comment: Grow th [id number] HEMOLYTIC STREPTOCOCCUS, GROUP GBETA HEMOLYTIC STREPTOCOCCUS, GROUP G Streptococcus beta hemolytic group G Penicillin continues to be the drug of choice for streptococcal infection. Sensitivity will only be performed upon request. INFLUENZA A/B ANTIGENon Influenza A Antigen Positive Abnormal Negative [facility] Influenza B Antigen Negative Normal Negative [facility] RAPID STREP A ANTIGENon S. pyogenes Ag IA Ql (Unsp spec) Negative Normal Negative [facility] UPPER RESPIRATORY CULTURE, B ACTERIALon 05-07-2022 Bacteria identified Cx Nom (Unsp spec) Negative Normal [facility] Comment on above: Order Comment: No be ta hemolytic strep recovered. FECAL CALPROTECTINon 04-24- 022 CALPROTECTIN, FECAL 91.5 mg/kg High 0-50 [facility] Comment on above: Result Comment: Reactivity Negative <50 mg/kg Indeterminate 50-120 mg/kg Positive > or = 120 mg/kg These results were obtained with the QUANTA Flash Calprotectin chemiluminescent immunoassay. Values obtained with different graduate studies dean's assay methods must not be used interchangeably. [facility], [address] [place] [address] CLIA NO. [id number] Performed By: #### C ALPF ####[facility] [place] [address] GASTROINTESTINAL INFECTIOUS DISEASE PANEL BY PCRon 04-24-2022 [...] F40/41, Astrovirus, Norovirus GI/GII, Rotavirus A, Sapovirus. [facility], [address] [place], [place] [address] CLIA NO. [id number] Normal [facility] Comment on above: Performed By: #### G IDP #### [facility] [address] [place] [address] HELICOBACTER PYLORI ANTIGENo n 04-24-2022 HELICOBACTER PYLORI ANTIGEN SPECIAL REQUESTS NONE H PYLORI ANTG Negative for H. pylori antigen by EIA [facility], [address] [place] [address] CLIA NO. [id number] Normal [facility] Comment on above: Performed By: #### H PYAG #### [facility] [address] [place] [address] C-REACTIVE PROTEINon 022 CRP [Mass/Vol] mg/L Normal <0.30 [facility] Comment on above: Result Comment: [facility], [address] [place] [address] CLIA NO. [id number] Performed By: #### C RP ####[facility] [address] CRP [Mass/Vol] mg/L <0.30 mg/dL [facility] Comment on above: [facility], [address] [place] [address] CLIA NO. [id number] CBC AND DIFFERENTIALon 04-23 ABSOLUTE NEUTR CNT,M 4.7 x 10X3/mm3 Normal 1.80-8.00 [facility] Comment on above: Result Comment: [facility], [address] [place] [address] CLIA NO. [id number] Performed By: #### C BCP #### [facility] 1 [facility] [address] Basophils/100 WBC (Bld) 1.0 % Normal 0-1 [facility] Comment on above: Performed By: #### C BCP #### [facility] 1 [facility] [address] Eosinophils/100 WBC (Bld) 1.4 % Normal 0-3 [facility] Comment on above: Performed By: #### C BCP #### [facility] 1 [facility] [address] Erythrocyte distribution width (RBC) [Ratio] 12.9 % Normal 11.5-14.5 [facility] Comment on above: Performed By: #### C BCP #### [facility] 1 [facility] [address] Hematocrit (Bld) [Volume fraction] 40.6 % Normal 35-45 [facility] Comment on above: Performed By: #### C BCP #### [facility] 1 [facility] [address] HEMO SLIDE NUMBER 286 Normal [facility] Comment on above: Performed By: #### C BCP #### [facility] 1 [facility] [address] Hemoglobin (Bld) [Mass/Vol] 14.3 g/dL Normal 12.0-15.0 [facility] Comment on above: Performed By: #### C BCP #### [facility] [address] [facility] [address] Lymphocytes/100 WBC (Bld) 32.8 % Normal 25-45 [facility] Comment on above: Performed By: #### C BCP #### [facility] [address] [facility] [address] MCH (RBC) [Entitic mass] 31.5 pg Normal 26-32 [facility] Comment on above: Performed By: #### C BCP #### [facility] 1 [facility] [address] MCHC (RBC) [Mass/Vol] 35.2 g/dL Normal 32-36 [facility] Comment on above: Performed By: #### C BCP #### [facility] [address] [facility] [address] MCV (RBC) [Entitic vol] 89.6 fL Normal 78-95 [facility] Comment on above: Performed By: #### C BCP #### [facility] [address] [facility] [address] Monocytes/100 WBC (Bld) 9.9 % High 0-5 [facility] Comment on above: Performed By: #### C BCP #### [facility] [address] [facility] [address] Neutrophils/100 WBC (Bld) 54.9 % Normal 34-64 [facility] Comment on above: Performed By: #### C BCP #### [facility] [address] [facility] [address] ONLINE DIFF TYPE AUTOMATED DIFFERENTIAL Normal [facility] Comment on above: Performed By: #### C BCP #### [facility] [address] [facility] [address] PLATELET COUNT 386 x 10x3/mm3 Normal 140-440 [facility] Comment on above: Performed By: #### C BCP #### [facility] 1 [facility] [address] Platelet mean volume (Bld) [Entitic vol] 7.1 fL Normal 6.3-10.5 [facility] Comment on above: Performed By: #### C BCP #### [facility] 1 [facility] [address] RBC COUNT 4.53 X 10X6/mm3 Normal 4.10-5.30 [facility] Comment on above: Performed By: #### C BCP #### [facility] 1 [facility] [address] WBC COUNT 8.6 x 10x3/mm3 Normal 4.0-10.5 [facility] Comment on above: Performed By: #### C BCP #### [facility] 1 [facility] [address] ABSOLUTE NEUTR CNT,M 4.7 [facility] Comment on above: [facility], [address] [place] [address] CLIA NO. [id number] Basophils/100 WBC (Bld) 1.0 % 0 - 1 % [facility] Differential cell count method Nom (Bld) AUTOMATED DIFFERENTIAL [facility] Eosinophils/100 WBC (Bld) 1.4 % 0 - 3 % [facility] Erythrocyte distribution width Auto (Bld fetus) [Ratio] 12.9 % 11.5 - 14.5 % [facility] Hematocrit (Bld) [Volume fraction] 40.6 % 35 - 45 % [facility] HEMO SLIDE NUMBER 286 [facility] Hemoglobin (Bld) [Mass/Vol] 14.3 g/dL 12.0 - 15.0 g/dL [facility] Interpretation and review of laboratory results Abnormal [facility] Lymphocytes/100 WBC (Bld) 32.8 % 25 - 45 % [facility] MCH Auto (Bld fetus) [Entitic mass] 31.5 pg 26 - 32 pg [facility] MCHC Auto (Bld fetus) [Mass/Vol] 35.2 g/dL 32 - 36 g/dL [facility] MCV Auto (Bld fetus) [Entitic vol] 89.6 [facility] Monocytes/100 WBC (Bld) 9.9 % High 0 - 5 % [facility] Platelet mean volume (Bld) [Entitic vol] 7.1 fL 6.3 - 10.5 fL [facility] Platelets (Bld) [#/Vol] 386 10*3/uL [facility] RBC (Bld) [#/Vol] 4.53 10*6/uL [facility] Segmented neutrophils/100 WBC (Bld) 54.9 % 34 - 64 % [facility] WBC (Bld) [#/Vol] 8.6 10*3/uL [facility] CELIAC SEROLOGY LABon 2021 ENDOMYSIAL ANTIBODY, IGA <1:10 Normal <1:10 [facility] Comment on above: Result Comment: (NOT E) INTERPRETIVE INFORMATION: Endomysial Antibody, IgA Titer The endomysial antigen has been identified as the protein cross-linking enzyme known as tissue transglutaminase. Performed By: [employer] [address] [place] [address] Clinical Informaticist: Salbador Leung MD, PhD [facility] [address] [place] [address] Performed By: #### C DSL #### [facility] 1 [facility] [address] GLIADIN IGA 0.5 U/mL Normal <7.0 [facility] Comment on above: Result Comment: INTE RTRETIVE DATA: <7=NEGATIVE 7-10 EQUIVOCAL >10 POSITIVE Performed By: #### C DSL #### [facility] 1 [facility] [address] GLIADIN IGG <0.6 Normal <7.0 [facility] Comment on above: Result Comment: INTE RTRETIVE DATA: <7=NEGATIVE 7-10 EQUIVOCAL >10 POSITIVE Performed By: #### C DSL #### [facility] 1 [facility] [address] IgA [Mass/Vol] 77 mg/dL Normal 60-310 [facility] Comment on above: Result Comment: [facility], [address] [place] [address] CLIA NO. [id number] Performed By: #### C DSL #### [facility] 1 [facility] [address] TTG IGA 0.2 U/mL Normal <7.0 [facility] Comment on above: Result Comment: INTE RTRETIVE DATA: <7=NEGATIVE 7-10 EQUIVOCAL >10 POSITIVE Performed By: #### C DSL #### [facility] 1 [facility] [address] COMPREHENSIVE METABOLIC PANE Jethro 04-23-2022 Albumin [Mass/Vol] 4.1 g/dL Normal 3.3-4.8 [facility] Comment on above: Performed By: #### C PM #### [facility] 1 [facility] [address] ALP [Catalytic activity/Vol] 74 U/L Normal 50-120 [facility] Comment on above: Performed By: #### C PM #### [facility] 1 [facility] [address] ALT [Catalytic activity/Vol] 83 U/L High 6-45 [facility] Comment on above: Result Comment: [facility], [address] [place] [address] CLIA NO. [id number] Performed By: #### C PM #### [facility] 1 [facility] [address] AST [Catalytic activity/Vol] 38 U/L High 1-25 [facility] Comment on above: Performed By: #### C PM #### [facility] 1 [facility] [address] Bilirubin [Mass/Vol] 0.4 mg/dL Normal 0.2-1.0 [facility] Comment on above: Performed By: #### C PM #### [facility] 1 [facility] [address] Calcium [Mass/Vol] 9.0 mg/dL Normal 8.4-10.2 [facility] Comment on above: Performed By: #### C PM #### [facility] 1 [employer] [facility] [address] Chloride [Moles/Vol] 111 mmol/L High 97-107 [facility] Comment on above: Performed By: #### C PM #### [facility] [address] [facility] [address] [address] CO2 [Moles/Vol] 25.0 mmol/L Normal 17-31 [facility] Comment on above: Performed By: #### C PM #### [facility] [address] [address] Creatinine [Mass/Vol] 0.8 mg/dL Normal 0.5-0.8 [facility] Comment on above: Performed By: #### C PM #### [facility] [address] [facility] [address] Glucose [Mass/Vol] 92 mg/dL Normal 65-106 [facility] Comment on above: Performed By: #### C PM #### [facility] [address] [facility] [address] Potassium [Moles/Vol] 4.4 mmol/L Normal 3.3-4.7 [facility] Comment on above: Performed By: #### C PM #### [facility] [address] [facility] [address] Protein [Mass/Vol] 7.4 g/dL Normal 6.7-8.4 [facility] Comment on above: Performed By: #### C PM #### [facility] [address] [place] [address] Sodium [Moles/Vol] 141 mmol/L Normal 135-145 [facility] Comment on above: Performed By: #### C PM #### [facility] [address] [facility] [address] Urea nitrogen [Mass/Vol] 11 mg/dL Normal 6-21 [facility] Comment on above: Performed By: #### C PM #### [facility] [address] [place] [address] Albumin [Mass/Vol] 4.1 g/dL 3.3 - 4.8 g/dL [facility] ALP [Catalytic activity/Vol] 74 U/L 50 - 120 U/L [facility] AST [Catalytic activity/Vol] 38 U/L High 1 - 25 U/L [facility] AST/Alanine aminotransferase [Catalytic ratio] 83 U/L High 6 - 45 U/L [facility] Comment on above: [facility], [address] [place] [address] CLIA NO. [id number] Bilirubin [Mass/Vol] 0.4 mg/dL 0.2 - 1 .0 mg/dL [facility] Calcium [Mass/Vol] 9.0 mg/dL 8.4 - 10. 2 mg/dL [facility] Chloride [Moles/Vol] 111 mmol/L High 97 - 10 7 mmol/L [facility] CO2 [Moles/Vol] 25.0 mmol/L 17 - 31 mmol/L [facility] Creatinine [Mass/Vol] 0.8 mg/dL 0.5 - 0.8 mg/dL [facility] Glucose [Mass/Vol] 92 mg/dL 65 - 106 mg/dL [facility] Interpretation and review of laboratory results Abnormal [facility] Potassium [Moles/Vol] 4.4 mmol/L 3.3 - 4.7 mmol/L [facility] Protein [Mass/Vol] 7.4 g/dL 6.7 - 8.4 g/dL [facility] Sodium [Moles/Vol] 141 mmol/L 135 - 145 mmol/L [facility] Urea nitrogen [Mass/Vol] 11 mg/dL 6 - 21 mg/dL [facility] ERYTHROCYTE SEDIMENTon 04-23 ERYTHROCYTE SEDIMENT 5 mm/hr Normal 0-20 [facility] Comment on above: Result Comment: [facility], [address] [place], [place] [address] CLIA NO. [id number] Performed By: #### S ED #### [facility] 1 [facility] [address] ESR (Bld) [Velocity] 5 mm[facility]h [facility] Comment on above: [facility], [address] [place] [address] CLIA NO. [id number] [facility] GAMMA GTon 04-23-2022 Gamma glutamyl transferase [Catalytic activity/Vol] 41 U/L Normal 6-48 [facility] Comment on above: Result Comment: [facility], [address] [place] [address] CLIA NO. [id number] Performed By: #### G GT #### [facility] 1 [facility] [address] Gamma glutamyl transferase [Catalytic activity/Vol] 41 U/L 6 - 48 U/L [facility] Comment on above: [facility], [address] [place] [address] CLIA NO. [id number] [facility] No Panel Informationon 04-23 [facility] T4 FREEon 04-23-2022 Free T4 [Mass/Vol] 0.93 ng/dL Normal 0.77-2.31 [facility] Comment on above: Result Comment: [facility], [address] [place] [address] CLIA NO. [id number] Performed By: #### F T4 #### [facility] 1 [facility] [address] Free T4 [Mass/Vol] 0.93 ng/dL 0.77 - 2. 31 ng/dL [facility] Comment on above: [facility], [address] [place] [address] CLIA NO. [id number] TSHon 04-23-2022 TSH 0.56 uIU/mL Normal 0.45-4.52 [facility] Comment on above: Result Comment: [facility], [address] [place], [place] [address] CLIA NO. [id number] Performed By: #### T ####[facility] [address] TSH Qn 0.56 m[IU]/L [facility] Comment on above: [facility], [address] [place], [place] [address] CLIA NO. [id number] XR ABDOMEN 1 VIEWon 04-23-20 22 XR ABDOMEN 1 VIEW [facility] [place] [address] MEDICAL IMAGING DEPARTMENT PATIENT NAME: WHIT ARMSTRONG ORDER: BIRTHDATE: 2005 ACCT: [id number] DOCTOR: MR: LOCATION: [facility] XR ABDOMEN 1 VIEW ORDERING DOCTOR: JOSE [...] manner consistent with medical record policies. Normal [facility] XR Abdomen Single viewon IMPRESSION: A moderate amount of stool is present throughout the colon. PRIYANKA CASTREJON M.D. This document has been electronically reviewed and approved by PRIYANKA CASTREJON M.D. The above information is part of the patient's medical record and should be maintained in a confidential manner consistent with medical record policies. [place] [address] MEDICAL IMAGING DEPARTMENT PATIENT NAME: WHIT ARMSTRONG ORDER: BIRTHDATE: 2005 ACCT: [id number] DOCTOR: MR: LOCATION: [facility] XR ABDOMEN 1 VIEW ORDERING DOCTOR: JOSE [...] have a normal appearance. [facility] Priyanka Castrejon M D - 04/23/2022 [place] [address] MEDICAL IMAGING DEPARTMENT PATIENT NAME: WHIT ARMSTRONG ORDER: BIRTHDATE: 2005 ACCT: [id number] DOCTOR: MR: LOCATION: [facility] -- XR ABDOMEN 1 VIEW ORDERING DOCTOR: JOSE AUGUST ALSO INCLUDES ORDER #(S): -- Abdomen, AP [...] confidential manner consistent with medical record policies. [facility] Radiology Study observation (narrative) [facility] XR Abdomen Single viewOrdere d By: Priyanka Castrejon on 04-23-2022 [facility] Work Phone: XR NECK SOFT TISSUEon 2021 XR NECK SOFT TISSUE [facility] [place] [address] MEDICAL IMAGING DEPARTMENT PATIENT NAME: WHIT ARMSTRONG ORDER: BIRTHDATE: 2005 ACCT: [id number] DOCTOR: MR: LOCATION: [facility] XR NECK SOFT TISSUE ORDERING DOCTOR: BONIFACIO [...] manner consistent with medical record policies. Normal [facility] XR Neck AP and Lateralon IMPRESSION: No radiographic abnormality is identified. ALVERTO GUTIERREZ D.O. This document has been electronically reviewed and approved by ALVERTO GUTIERREZ D.O. The above information is part of the patient's medical record and should be maintained in a confidential manner consistent with medical record policies. [place] [address] MEDICAL IMAGING DEPARTMENT PATIENT NAME: WHIT ARMSTRONG ORDER: BIRTHDATE: 2005 ACCT: [id number] DOCTOR: , MR: LOCATION: [facility] XR NECK SOFT TISSUE ORDERING DOCTOR: BONIFACIO BURNS ALSO INCLUDES ORDER #(S): Soft tissue neck, lateral view only: 04/16/2022 Comparison: None. Clinical History: G47.33 Obstructive sleep apnea (adult) (pediatric); Findings: The epiglottis and aryepiglottic folds appear normal. The retropharyngeal soft tissues are not thickened. The subglottic trachea appears normal. The adenoids are not significantly enlarged. No skeletal abnormalities are demonstrated. MEDICAL [facility] [place] [facility] Vitaly Gutierrez DO - 04/16/2022 [place] [address] MEDICAL IMAGING DEPARTMENT PATIENT NAME: WHIT ARMSTRONG ORDER: BIRTHDATE: 2005 ACCT: [id number] DOCTOR: , MR: LOCATION: [facility] -- XR NECK SOFT TISSUE ORDERING DOCTOR: [...] confidential manner consistent with medical record policies. [facility] Radiology Study observation (narrative) [facility] XR Neck AP and LateralOrdere d By: Vitaly Gutierrez on 04-16-2022 [facility] Work Phone: VITAMIN D (25-HYDROXY,TOTAL) on 04-07-2022 25-OH Vitamin D Hydroxy 28 ng/mL Normal [facility] Comment on above: Result Comment: This assay accurately quantifies the sum of vitamin D3, 25-Hydroxy and vitamin D2, 25-Hydroxy. Reference interval 0-18 years: Deficiency: less than 20 ng/mL Optimum level: greater than or equal to 20 ng/mL* *(Jose CL et al. Pediatrics 2008; 122: 1128-38) URINE DIPSTICK; REFLEX MICRO SCOPY; REFLEX CULTURE PERFORMABLEon 04-04-2022 Appearance (U) Clear Normal Clear [facility] Bilirubin Ql (U) Negative Normal Negative [facility] Blood Urine Negative Normal Negative [facility] Color (U) Yellow Normal Yellow [facility] Glucose Ql (U) Negative Normal Negative [facility] Ketones Ql (U) Negative Normal Negative [facility] Leukocyte esterase Test strip Ql (U) Negative Normal Negative [facility] Nitrites Urine Negative Normal Negative [facility] pH Urine 7.0 pH Units Normal 5.0-8.0 [facility] Protein Urine Negative Normal Negative-Tra e [facility] Specific [place] Urine 1.010 Normal 1.010-1.025 [facility] Urobilinogen Urine Negative Normal Negative [facility] THROAT CULTURE (RFLX OF SCRN )on 03-28-2022 THROAT CULTURE (RFLX OF SCRN) Antibiotic: VALENTIN: Systemic: Comments: [facility] FLUAV+FLUBV Ag IA.rapid Ql ( Nose)on 03-26-2022 FLUBV Ag Ql (Nose) Negative Normal [facility] FLUAV Ag Ql (Nose) Negative Normal [facility] INFLUENZA A/B RAPID ASSAY ON Yang 03-26-2022 INFLUENZA A KIT 04/10/20 Negative Normal Negative [facility] Comment on above: Performed By: #### C BC #### [facility] [address] [place], [place] [address] INFLUENZA B KIT 04/10/20 Negative Normal Negative [facility] Comment on above: Performed By: #### C BC #### [facility] [address] [place], [place] [address] STREP SCREEN GRP A-THRon STREP SCREEN Negative Normal Negative [facility] Comment on above: Result Comment: Nega tive Strep A Screen has reflexed a Throat Culture. Performed By: #### C BC #### [facility] [address] [place], [place] [address] Streptococcus pyogenes Ag [P resence] in Throaton 03-26-2022 S. pyogenes Ag Ql (Throat) Negative Normal [facility] XR KNEE 4+ VIEW LEFTon 03-10 XR KNEE 4+ [place] [address] MEDICAL IMAGING DEPARTMENT PATIENT NAME: WHIT ARMSTRONG ORDER: BIRTHDATE: 2005 ACCT: [id number] DOCTOR: , MR: LOCATION: [facility] XR KNEE 4+ VIEW LEFT ORDERING DOCTOR: [...] manner consistent with medical record policies. Normal [facility] XR KNEE 4+ VIEW RIGHT 03-01 XR KNEE 4+ [place] [address] MEDICAL IMAGING DEPARTMENT PATIENT NAME: WHIT ARMSTRONG ORDER: BIRTHDATE: 2005 ACCT: [id number] DOCTOR: , MR: LOCATION: [facility] XR KNEE 4+ VIEW RIGHT ORDERING DOCTOR: [...] manner consistent with medical record policies. Normal [facility] CBC W Auto Differential pane l (Bld)on 02-21-2022 CBC W Auto Differential panel - Blood xxxxx Normal [facility] Basophils (Bld) [#/Vol] 0.1 10*3/uL Normal 0.0 - 0.2 x10^3/uL [facility] Basophils/100 WBC (Bld) 0.7 % Normal 0.0 - 2.0 % [facility] Eosinophils (Bld) [#/Vol] 0.1 10*3/uL Normal 0.0 - 0.7 x10^3/uL [facility] Eosinophils/100 WBC (Bld) 1.1 % Normal 0.0 - 7.0 % [facility] Erythrocyte distribution width (RBC) [Ratio] 12.8 % Normal 11.0 - 14.8 % [facility] Hematocrit (Bld) [Volume fraction] 42 % Normal 36.0 - 48.0 % [facility] Hemoglobin (Bld) [Mass/Vol] 14.7 g/dL Normal 12.0 - 16.0 g/dL [facility] Lymphocytes (Bld) [#/Vol] 2.4 10*3/uL Normal 1.0 - 4.8 x10^3/uL [facility] Lymphocytes/100 WBC (Bld) 31.9 % Normal 25.0 - 45.0 % [facility] Manual differential performed Ql (Bld) AUTO Normal * [facility] MCH (RBC) [Entitic mass] 31.1 pg Normal 25.0 - 34.0 pg [facility] MCHC (RBC) [Mass/Vol] 34.8 g/dL Normal [facility] MCV (RBC) [Entitic vol] 89 fL Normal 78.0 - 102.0 fL [facility] Monocytes (Bld) [#/Vol] 0.7 10*3/uL Normal 0.0 - 0.9 x10^3/uL [facility] Monocytes/100 WBC (Bld) 9.2 % Normal 3.8 - 11.2 % [facility] Neutrophils (Bld) [#/Vol] 4.3 10*3/uL Normal 1.8 - 7.7 x10^3/uL [facility] Neutrophils/100 WBC (Bld) 57.1 % Normal 39.0 - 75.0 % [facility] Platelets (Bld) [#/Vol] 400 10*3/uL Normal 142.0 - 424.0 x10^3/uL [facility] RBC (Bld) [#/Vol] 4.7 10*6/uL Normal 4.1 - 5.1 x10^6/uL [facility] WBC corrected for nucl RBC Auto (Bld) [#/Vol] 7.6 x10^3/uL Normal 4.5 - 13.5 x10^3/uL [facility] CBC, AUTO DIFFon 02-21-2022 BASOPHILS (ABSOLUTE) 0.1 x10 3/uL Normal 0.0-0.2 [facility] Comment on above: Performed By: #### C BC #### [facility] [place], [place] [address] Basophils/100 WBC (Bld) 0.7 % Normal 0.0-2.0 [facility] Comment on above: Performed By: #### C BC #### [facility] [address] [place] [address] EOSINOPHILS (ABSOLUTE) 0.1 x10 3/uL Normal 0.0-0.7 [facility] Comment on above: Performed By: #### C BC #### [facility] [address] [place] [address] Eosinophils/100 WBC (Bld) 1.1 % Normal 0.0-7.0 [facility] Comment on above: Performed By: #### C BC #### [facility] [address] [place] [address] Erythrocyte distribution width (RBC) [Ratio] 12.8 % Normal 11.0-14.8 [facility] Comment on above: Performed By: #### C BC #### [facility] [address] [place] [address] Hematocrit (Bld) [Volume fraction] 42 % Normal 36-48 [facility] Comment on above: Performed By: #### C BC #### [facility] [address] [place] [address] Hemoglobin (Bld) [Mass/Vol] 14.7 g/dL Normal 12.0-16.0 [facility] Comment on above: Performed By: #### C BC #### [facility] [address] [place], [place] [address] LYMPHOCYTES (ABSOLUTE) 2.4 x10 3/uL Normal 1.0-4.8 [facility] Comment on above: Performed By: #### C BC #### [facility] [address] [place] [address] Lymphocytes/100 WBC (Bld) 31.9 % Normal 25.0-45.0 [facility] Comment on above: Performed By: #### C BC #### [facility] [address] [place] [address] Manual Differential panel (Bld) AUTO Normal * [facility] Comment on above: Performed By: #### C BC #### [facility] [address] [place] [address] MCH (RBC) [Entitic mass] 31.1 pg Normal 25.0-34.0 [facility] Comment on above: Performed By: #### C BC #### [facility] [address] [place] [address] MCHC (RBC) [Mass/Vol] 34.8 g/dL Normal [facility] Comment on above: Performed By: #### C BC #### [facility] [address] [place] [address] MCV (RBC) [Entitic vol] 89 fL Normal 78-102 [facility] Comment on above: Performed By: #### C BC #### [facility] [address] [place] [address] MDW xxxxx Normal [facility] Comment on above: Performed By: #### C BC #### [facility] [address] [facility]. [place], [place] [address] MONOCYTES (ABSOLUTE) 0.7 x10 3/uL Normal 0.0-0.9 [facility] Comment on above: Performed By: #### C BC #### [facility] [address] [facility]. [place], [place] [address] Monocytes/100 WBC (Bld) 9.2 % Normal 3.8-11.2 [facility] Comment on above: Performed By: #### C BC #### [facility] [address] [facility]. [place], [place] [address] NEUTROPHILS (ABSOLUTE) 4.3 x10 3/uL Normal 1.8-7.7 [facility] Comment on above: Performed By: #### C BC #### [facility] [address] [place], [place] [address] Neutrophils/100 WBC (Bld) 57.1 % Normal 39.0-75.0 [facility] Comment on above: Performed By: #### C BC #### [facility] [address] [facility]. [place], [place] [address] PLATELETS 400 x10 3/uL Normal 142-424 [facility] Comment on above: Performed By: #### C BC #### [facility] [address] [place], [place] [address] RED BLOOD COUNT 4.7 x10 6/uL Normal 4.1-5.1 [facility] Comment on above: Performed By: #### C BC #### [facility] [address] [place], [place] [address] WHITE BLOOD COUNT 7.6 x10 3/uL Normal 4.5-13.5 [facility] Comment on above: Performed By: #### C BC #### [facility] [address] [facility]. [place], [place] [address] COMP METABOLIC PROFILEon Albumin [Mass/Vol] 4.8 g/dL Normal 3.3-5.7 [facility] Comment on above: Performed By: #### C BC #### [facility] [address] [facility]. [place], [place] [address] Albumin/Globulin [Mass ratio] 2.0 {ratio} Normal 1.1-2.5 [facility] Comment on above: Performed By: #### C BC #### [facility] [address] [facility]. [place], [place] [address] ALP [Catalytic activity/Vol] 60 U/L Normal 34-124 [facility] Comment on above: Performed By: #### C BC #### [facility] [address] [facility]. [place], [place] [address] ALT [Catalytic activity/Vol] 34 U/L Normal 7-52 [facility] Comment on above: Performed By: #### C BC #### [facility] [address] [facility]. [place], [place] [address] Anion gap [Moles/Vol] 9 mmol/L Normal 8-16 [facility] Comment on above: Performed By: #### C BC #### [facility] [address] [facility]. [place], [place] [address] AST [Catalytic activity/Vol] 22 U/L Normal 13-39 [facility] Comment on above: Performed By: #### C BC #### [facility] [address] [place], [place] [address] Bilirubin [Mass/Vol] 0.6 mg/dL Normal 0.3-1.0 [facility] Comment on above: Performed By: #### C BC #### [facility] [address] [facility]. [place], [place] [address] BUN/CREATININE RATIO 15.0 Ratio Normal 6.0-22.0 [facility] Comment on above: Performed By: #### C BC #### [facility] [address] [facility]. [place], [place] [address] Calcium [Mass/Vol] 9.4 mg/dL Normal 8.5-10.5 [facility] Comment on above: Performed By: #### C BC #### [facility] [address] [place] [address] Chloride [Moles/Vol] 106 mmol/L Normal 99-107 [facility] Comment on above: Performed By: #### C BC #### [facility] [address] [place], [place] [address] CO2 [Moles/Vol] 23 mmol/L Normal 21-31 [facility] Comment on above: Performed By: #### C BC #### [facility] [address] [place] [address] Creatinine [Mass/Vol] 0.79 mg/dL Normal 0.60-1.30 [facility] Comment on above: Performed By: #### C BC #### [facility] [address] [place], [place] [address] EGFRAA N/A Normal [facility] Comment on above: Result Comment: Test result not calculated due to patient age. GFR Ranges: Stage GFR Level Description 1 90mL/min or more Normal 2 60-89 mL/min Mild Decrease 3 30-59 mL/min Moderate Decrease 4 15-29 mL/min Severe Decrease 5 <15 mL/min Kidney Failure Performed By: #### C BC #### [facility] [address] [place], [place] [address]. [place], [place] [address] GFR N/A Normal [facility] Comment on above: Result Comment: Test result not calculated due to patient age. GFR RANGES STAGE GFR LEVEL DESCRIPTION 1 90 mL/min or more NORMAL 2 60-89 mL/min MILD DECREASE 3 30-59 mL/min MODERATE DECREASE 4 15-29 mL/min SEVERE DECREASE 5 < 15mL/min KIDNEY FAILURE Performed By: #### C BC #### [facility] [address] [place], [place] [address] Globulin (S) [Mass/Vol] 2.0 g/dL Normal 1.7-3.8 [facility] Comment on above: Performed By: #### C BC #### [facility] [address] [facility]. [place], [place] [address] Glucose [Mass/Vol] 71 mg/dL Normal 70-105 [facility] Comment on above: Performed By: #### C BC #### [facility] [address] [facility]. [place], [place] [address] Potassium [Moles/Vol] 4.0 mmol/L Normal 3.5-5.3 [facility] Comment on above: Performed By: #### C BC #### [facility] [address] [place] [address]. [place], [place] [address] Protein [Mass/Vol] 7.2 g/dL Normal 6.0-8.9 [facility] Comment on above: Performed By: #### C BC #### [facility] [address] [place], [place] [address] Sodium [Moles/Vol] 138 mmol/L Normal 135-145 [facility] Comment on above: Performed By: #### C BC #### [facility] [address] [facility]. [place], [place] [address] Urea nitrogen [Mass/Vol] 12.0 mg/dL Normal 7.0-25.0 [facility] Comment on above: Performed By: #### C #### [facility] [address] [facility] [place], [place] [address] Comprehensive metabolic 1999 panelon 02-21-2022 Comprehensive metabolic 1999 panel - Serum or P N/A Normal [facility] Albumin BCG dye [Mass/Vol] 4.8 g/dL Normal 3.3 - 5.7 gm/dL [facility] ALP [Catalytic activity/Vol] 60 U/L Normal 34.0 - 124.0 U/L [facility] ALT [Catalytic activity/Vol] 34 U/L Normal 7.0 - 52.0 U/L [facility] Anion gap [Moles/Vol] 9 mmol/L Normal 8.0 - 16.0 mmol/L [facility] Anion gap [Moles/Vol] 2.0 Ratio Normal 1.1 - 2.5 Ratio [facility] AST [Catalytic activity/Vol] 22 U/L Normal 13.0 - 39.0 U/L [facility] Bilirubin [Mass/Vol] 0.6 mg/dL Normal 0.3 - 1 .0 mg/dL [facility] Calcium [Mass/Vol] 9.4 mg/dL Normal 8.5 - 10. 5 mg/dL [facility] Chloride [Moles/Vol] 106 mmol/L Normal 99.0 - 107.0 mmol/L [facility] Creatinine [Mass/Vol] 0.79 mg/dL Normal 0.6 - 1.3 mg/dL [facility] GFR/1.73 sq M.predicted (S/P/Bld) [Vol rate/Area] N/A Normal [facility] Globulin (S) [Mass/Vol] 2.0 g/dL Normal 1.7 - 3.8 g/dL [facility] Glucose post fast [Mass/Vol] 71 mg/dL Normal 70.0 - 105.0 mg/dL [facility] HCO3 [Moles/Vol] 23 mmol/L Normal 21.0 - 31.0 mmol/L [facility] Potassium [Moles/Vol] 4.0 mmol/L Normal 3.5 - 5.3 mmol/L [facility] Protein [Mass/Vol] 7.2 g/dL Normal 6.0 - 8.9 g/dL [facility] Sodium [Moles/Vol] 138 mmol/L Normal 135.0 - 1 45.0 mmol/L [facility] Urea nitrogen [Mass/Vol] 12.0 mg/dL Normal 7.0 - 25.0 mg/dL [facility] Urea nitrogen/Creatinine [Mass ratio] 15.0 Ratio Normal 6.0 - 22.0 Ratio [facility] HEMOGLOBIN A1Con 02-21-2022 Glucose [Mass/Vol] 108 mg/dL Normal [facility] Comment on above: Result Comment: DAVEY MATED AVERAGE GLUCOSE Performed By: #### A 1C #### [facility] [address] [facility]. [place], [place] [address] HbA1c (Bld) [Mass fraction] 5.4 % Normal 4.0-6.2 [facility] Comment on above: Result Comment: Expe cted Values: 3-6% for non diabetic 6-9% for controlled diabetic >9% for poorly controlled diabetic Expected Values: 3-6% for non diabetics 6-9% for controlled diabetics >9% for poorly controlled diabetics Performed By: #### A 1C #### [facility] [address] [facility]. [place], [place] [address] HbA1c (Bld)on 02-21-2022 Average glucose Estimated from glycated hemoglobin (Bld) [Mass/Vol] 108 mg/dL Normal [facility] HbA1c (Bld) [Mass fraction] 5.4 % Normal 4.0 - 6.2 % [facility] Urinalysis dipstick W Reflex Culture panel (U)on 02-04-2022 Bacteria LM.HPF (Urine sed) [#/Area] 1+ Normal NONE SEEN [facility] URINALYSIS(REFLEX TO CULTURE )on 02-02-2022 BACTERIA,URINE 1+ #/HPF Normal NONE SEEN [facility] Comment on above: Performed By: #### C BC #### [facility] [address] [facility]. [place], [place] [address] EPITHELIAL SQUAMOUS, URINE 3-5 Normal NONE SEEN [facility] Comment on above: Performed By: #### C BC #### [facility] [address] [facility]. [place], [place] [address] Glucose Ql (U) Negative Normal Negative [facility] Comment on above: Performed By: #### C BC #### [facility] [address] [facility]. [place], [place] [address] Hemoglobin Ql (U) Small Invalid Interpretation Code Negative [facility] Comment on above: Performed By: #### C BC #### [facility] [address] [place], [place] [address] KETONE Negative Normal Negative [facility] Comment on above: Performed By: #### C BC #### [facility] [address] [facility]. [place], [place] [address] Leukocyte esterase Test strip Ql (U) Small Invalid Interpretation Code Negative [facility] Comment on above: Performed By: #### C BC #### [facility] [address] [facility]. [place], [place] [address] Nitrite Ql (U) Negative Normal Negative [facility] Comment on above: Performed By: #### C BC #### [facility] [address] [facility]. [place], [place] [address] Protein Ql (U) Negative Normal Negative [facility] Comment on above: Performed By: #### C BC #### [facility] [address] [facility]. [place], [place] [address] RBC, URINE 0-2 Normal NONE SEEN [facility] Comment on above: Performed By: #### C BC #### [facility] [address] [place] [address] Specific gravity (U) [Rel density] 1.015 Normal 1.005-1.030 [facility] Comment on above: Performed By: #### C BC #### [facility] [address] [place] [address] URINE MICROSCOPY Yes Normal [facility] Comment on above: Performed By: #### C BC #### [facility] [address] [place] [address] URINE WBC 3-5 Normal NONE SEEN [facility] Comment on above: Performed By: #### C BC #### [facility] [address] [place] [address] UROBILIGEN Negative Normal NEG - 0.2 [facility] Comment on above: Performed By: #### C BC #### [facility] [facility] [address] [address] Urinalysis dipstick W Reflex Culture panel (U)on 02-02-2022 Epithelial cells.squamous LM.HPF (Urine sed) [#/Area] 3-5 Normal NONE SEEN [facility] Glucose Auto test strip Ql (U) Negative Normal [facility] Ketones Auto test strip Ql (U) Negative Normal [facility] Leukocyte esterase Auto test strip Ql (U) Small Abnormal [facility] Microscopic method Nom (U) Yes Normal [facility] Nitrite Auto test strip Ql (U) Negative Normal [facility] Protein Auto test strip Ql (U) Negative Normal [facility] RBC LM.HPF (Urine sed) [#/Area] 0-2 Normal NONE SEEN [facility] RBC Ql (U) Small Abnormal [facility] Specific gravity (U) [Rel density] 1.015 1 Normal 1.005 - 1.03 [facility] Urobilinogen Ql (U) Negative Normal [facility] WBC LM.HPF (Urine sed) [#/Area] 3-5 Normal NONE SEEN [facility] Urinalysis dipstick W Reflex Culture panel - Uron 02-02-2022 Bilirubin Ql (U) Negative Normal Negative [facility] Comment on above: Performed By: #### C BC #### [facility] [address], [place] [address] Clarity (U) clear Normal Clear [facility] Comment on above: Performed By: #### C BC #### [facility] [address], [place] [address] Color (U) yellow Normal Yellow [facility] Comment on above: Performed By: #### C BC #### [facility] [address], [place] [address] pH (U) 6.5 [pH] Normal 5.0-8.0 [facility] Comment on above: Performed By: #### C BC #### [facility] [address] [address] CBC W Auto Differential pane l (Bld)on 01-03-2022 CBC W Auto Differential panel - Blood xxxxx Normal [facility] Basophils (Bld) [#/Vol] 0.1 10*3/uL Normal 0.0 - 0.2 x10^3/uL [facility] Basophils/100 WBC (Bld) 0.5 % Normal 0.0 - 2.0 % [facility] Eosinophils (Bld) [#/Vol] 0.1 10*3/uL Normal 0.0 - 0.7 x10^3/uL [facility] Eosinophils/100 WBC (Bld) 0.9 % Normal 0.0 - 7.0 % [facility] Erythrocyte distribution width (RBC) [Ratio] 13.0 % Normal 11.0 - 14.8 % [facility] Hematocrit (Bld) [Volume fraction] 41 % Normal 36.0 - 48.0 % [facility] Hemoglobin (Bld) [Mass/Vol] 13.9 g/dL Normal 12.0 - 16.0 g/dL [facility] Lymphocytes (Bld) [#/Vol] 3.7 10*3/uL Normal 1.0 - 4.8 x10^3/uL [facility] Lymphocytes/100 WBC (Bld) 31.2 % Normal 25.0 - 45.0 % [facility] Manual differential performed Ql (Bld) AUTO Normal * [facility] MCH (RBC) [Entitic mass] 30.5 pg Normal 25.0 - 34.0 pg [facility] MCHC (RBC) [Mass/Vol] 34.3 g/dL Normal [facility] MCV (RBC) [Entitic vol] 89 fL Normal 78.0 - 102.0 fL [facility] Monocytes (Bld) [#/Vol] 1.1 10*3/uL High 0.0 - 0.9 x10^3/uL [facility] Monocytes/100 WBC (Bld) 9.4 % Normal 3.8 - 11.2 % [facility] Neutrophils (Bld) [#/Vol] 6.8 10*3/uL Normal 1.8 - 7.7 x10^3/uL [facility] Neutrophils/100 WBC (Bld) 58.0 % Normal 39.0 - 75.0 % [facility] Platelets (Bld) [#/Vol] 396 10*3/uL Normal 142.0 - 424.0 x10^3/uL [facility] RBC (Bld) [#/Vol] 4.6 10*6/uL Normal 4.1 - 5.1 x10^6/uL [facility] WBC corrected for nucl RBC Auto (Bld) [#/Vol] 11.8 x10^3/uL Normal 4.5 - 13.5 x10^3/uL [facility] CBC, AUTO DIFFon 01-03-2022 BASOPHILS (ABSOLUTE) 0.1 x10 3/uL Normal 0.0-0.2 [facility] Comment on above: Performed By: #### C BC #### [facility] [address] [place] [address] Basophils/100 WBC (Bld) 0.5 % Normal 0.0-2.0 [facility] Comment on above: Performed By: #### C BC #### [facility] [address] [place] [address] EOSINOPHILS (ABSOLUTE) 0.1 x10 3/uL Normal 0.0-0.7 [facility] Comment on above: Performed By: #### C BC #### [facility] [address] [place] [address] Eosinophils/100 WBC (Bld) 0.9 % Normal 0.0-7.0 [facility] Comment on above: Performed By: #### C BC #### [facility] [address] [place] [address] Erythrocyte distribution width (RBC) [Ratio] 13.0 % Normal 11.0-14.8 [facility] Comment on above: Performed By: #### C BC #### [facility] [address] [place] [address] [place] [address] Hematocrit (Bld) [Volume fraction] 41 % Normal 36-48 [facility] Comment on above: Performed By: #### C BC #### [facility] [address] [place] [address] Hemoglobin (Bld) [Mass/Vol] 13.9 g/dL Normal 12.0-16.0 [facility] Comment on above: Performed By: #### C BC #### [facility] [address] [place] [address] LYMPHOCYTES (ABSOLUTE) 3.7 x10 3/uL Normal 1.0-4.8 [facility] Comment on above: Performed By: #### C BC #### [facility] [address] [place] [address] Lymphocytes/100 WBC (Bld) 31.2 % Normal 25.0-45.0 [facility] Comment on above: Performed By: #### C BC #### [facility] [address] [place] [address] Manual Differential panel (Bld) AUTO Normal * [facility] Comment on above: Performed By: #### C BC #### [facility] [address] [place] [address] MCH (RBC) [Entitic mass] 30.5 pg Normal 25.0-34.0 [facility] Comment on above: Performed By: #### C BC #### [facility] [address] [place] [address] MCHC (RBC) [Mass/Vol] 34.3 g/dL Normal [facility] Comment on above: Performed By: #### C BC #### [facility] [address] [facility]. [place], [place] [address] MCV (RBC) [Entitic vol] 89 fL Normal 78-102 [facility] Comment on above: Performed By: #### C BC #### [facility] [address] [facility]. [place], [place] [address] MDW xxxxx Normal [facility] Comment on above: Performed By: #### C BC #### [facility] [address], [place] [address] MONOCYTES (ABSOLUTE) 1.1 x10 3/uL High 0.0-0.9 [facility] Comment on above: Performed By: #### C BC #### [facility] [address], [place] [address] Monocytes/100 WBC (Bld) 9.4 % Normal 3.8-11.2 [facility] Comment on above: Performed By: #### C BC #### [facility] [address] [facility]. [place], [place] [address] NEUTROPHILS (ABSOLUTE) 6.8 x10 3/uL Normal 1.8-7.7 [facility] Comment on above: Performed By: #### C BC #### [facility] [address] [facility]. [place], [place] [address] Neutrophils/100 WBC (Bld) 58.0 % Normal 39.0-75.0 [facility] Comment on above: Performed By: #### C BC #### [facility] [address] [facility]. [place], [place] [address] PLATELETS 396 x10 3/uL Normal 142-424 [facility] Comment on above: Performed By: #### C BC #### [facility] [address] [facility]. [place], [place] [address] RED BLOOD COUNT 4.6 x10 6/uL Normal 4.1-5.1 [facility] Comment on above: Performed By: #### C BC #### [facility] [address], [place] [address] WHITE BLOOD COUNT 11.8 x10 3/uL Normal 4.5-13.5 [facility] Comment on above: Performed By: #### C BC #### [facility] [address], [place] [address] COMP METABOLIC PROFILEon Albumin [Mass/Vol] 4.3 g/dL Normal 3.3-5.7 [facility] Comment on above: Performed By: #### C META #### [facility] [address] [place] [address] Albumin/Globulin [Mass ratio] 2.0 {ratio} Normal 1.1-2.5 [facility] Comment on above: Performed By: #### C META #### [facility] [address] [place] [address] ALP [Catalytic activity/Vol] 67 U/L Normal 34-124 [facility] Comment on above: Performed By: #### C META #### [facility] [address] [place] [address] ALT [Catalytic activity/Vol] 26 U/L Normal 7-52 [facility] Comment on above: Performed By: #### C META #### [facility] [address] [place] [address] Anion gap [Moles/Vol] 5 mmol/L Low 8-16 [facility] Comment on above: Performed By: #### C META #### [facility] [address] [place] [address] AST [Catalytic activity/Vol] 20 U/L Normal 13-39 [facility] Comment on above: Performed By: #### C META #### [facility] [address], [place] [address] Bilirubin [Mass/Vol] 0.3 mg/dL Normal 0.3-1.0 [facility] Comment on above: Performed By: #### C META #### [facility] [address], [place] [address] BUN/CREATININE RATIO 9.0 Ratio Normal 6.0-22.0 [facility] Comment on above: Performed By: #### C META #### [facility] [address], [place] [address] Calcium [Mass/Vol] 9.7 mg/dL Normal 8.5-10.5 [facility] Comment on above: Performed By: #### C META #### [facility] [address], [place] [address] Chloride [Moles/Vol] 105 mmol/L Normal 99-107 [facility] Comment on above: Performed By: #### C META #### [facility] [address] [facility]. [place], [place] [address] CO2 [Moles/Vol] 27 mmol/L Normal 21-31 [facility] Comment on above: Performed By: #### C META #### [facility] [address], [place] [address] Creatinine [Mass/Vol] 0.77 mg/dL Normal 0.60-1.30 [facility] Comment on above: Performed By: #### C META #### [facility] [address], [place] [address] EGFRAA TNP Normal [facility] Comment on above: Result Comment: Test result not calculated due to patient age. GFR Ranges: Stage GFR Level Description 1 90mL/min or more Normal 2 60-89 mL/min Mild Decrease 3 30-59 mL/min Moderate Decrease 4 15-29 mL/min Severe Decrease 5 <15 mL/min Kidney Failure Performed By: #### C META #### [facility] [address] [place] [address] GFR TNP Normal [facility] Comment on above: Result Comment: Test result not calculated due to patient age. GFR RANGES STAGE GFR LEVEL DESCRIPTION 1 90 mL/min or more NORMAL 2 60-89 mL/min MILD DECREASE 3 30-59 mL/min MODERATE DECREASE 4 15-29 mL/min SEVERE DECREASE 5 < 15mL/min KIDNEY FAILURE Performed By: #### C META #### [facility] [address] [place] [address] Globulin (S) [Mass/Vol] 3.0 g/dL Normal 1.7-3.8 [facility] Comment on above: Performed By: #### C META #### [facility] [address] [place] [address] Glucose [Mass/Vol] 90 mg/dL Normal 70-105 [facility] Comment on above: Performed By: #### C META #### [facility] [address] [place] [address] Potassium [Moles/Vol] 4.0 mmol/L Normal 3.5-5.3 [facility] Comment on above: Performed By: #### C META #### [facility] [address] [place] [address] Protein [Mass/Vol] 6.8 g/dL Normal 6.0-8.9 [facility] Comment on above: Performed By: #### C META #### [facility] [address] [facility]. [place], [place] [address] Sodium [Moles/Vol] 137 mmol/L Normal 135-145 [facility] Comment on above: Performed By: #### C META #### [facility] [address] [facility]. [place], [place] [address] Urea nitrogen [Mass/Vol] 7.0 mg/dL Normal 7.0-25.0 [facility] Comment on above: Performed By: #### C META #### [facility] [address] [facility]. [place], [place] [address] Choriogonadotropin (pregnanc y test) [Presence]on 01-03-2022 HCG ( test) Ql (U) Negative Normal [facility] Comprehensive metabolic 2000 panelon 01-03-2022 Albumin BCG dye [Mass/Vol] 4.3 g/dL Normal 3.3 - 5.7 gm/dL [facility] ALP [Catalytic activity/Vol] 67 U/L Normal 34.0 - 124.0 U/L [facility] ALT [Catalytic activity/Vol] 26 U/L Normal 7.0 - 52.0 U/L [facility] Anion gap [Moles/Vol] 5 mmol/L Low 8.0 - 16.0 mmol/L [facility] Anion gap [Moles/Vol] 2.0 Ratio Normal 1.1 - 2.5 Ratio [facility] AST [Catalytic activity/Vol] 20 U/L Normal 13.0 - 39.0 U/L [facility] Bilirubin [Mass/Vol] 0.3 mg/dL Normal 0.3 - 1 .0 mg/dL [facility] Calcium [Mass/Vol] 9.7 mg/dL Normal 8.5 - 10. 5 mg/dL [facility] Chloride [Moles/Vol] 105 mmol/L Normal 99.0 - 107.0 mmol/L [facility] Creatinine [Mass/Vol] 0.77 mg/dL Normal 0.6 - 1.3 mg/dL [facility] GFR/1.73 sq M.predicted (S/P/Bld) [Vol rate/Area] TNP Normal [facility] Globulin (S) [Mass/Vol] 3.0 g/dL Normal 1.7 - 3.8 g/dL [facility] Glucose post fast [Mass/Vol] 90 mg/dL Normal 70.0 - 105.0 mg/dL [facility] HCO3 [Moles/Vol] 27 mmol/L Normal 21.0 - 31.0 mmol/L [facility] Potassium [Moles/Vol] 4.0 mmol/L Normal 3.5 - 5.3 mmol/L [facility] Protein [Mass/Vol] 6.8 g/dL Normal 6.0 - 8.9 g/dL [facility] Sodium [Moles/Vol] 137 mmol/L Normal 135.0 - 1 45.0 mmol/L [facility] Urea nitrogen [Mass/Vol] 7.0 mg/dL Normal 7.0 - 25.0 mg/dL [facility] Urea nitrogen/Creatinine [Mass ratio] 9.0 Ratio Normal 6.0 - 22.0 Ratio [facility] Comprehensive metabolic 1999 panel - Serum or P TNP Normal [facility] Comprehensive metabolic 1999 panel - Serum or P N/A Normal [facility] Albumin BCG dye [Mass/Vol] 4.3 g/dL Normal 3.3 - 5.7 gm/dL [facility] ALP [Catalytic activity/Vol] 67 U/L Normal 34.0 - 124.0 U/L [facility] ALT [Catalytic activity/Vol] 26 U/L Normal 7.0 - 52.0 U/L [facility] Anion gap [Moles/Vol] 5 mmol/L Low 8.0 - 16.0 mmol/L [facility] Anion gap [Moles/Vol] 2.0 Ratio Normal 1.1 - 2.5 Ratio [facility] AST [Catalytic activity/Vol] 20 U/L Normal 13.0 - 39.0 U/L [facility] Bilirubin [Mass/Vol] 0.3 mg/dL Normal 0.3 - 1 .0 mg/dL [facility] Calcium [Mass/Vol] 9.7 mg/dL Normal 8.5 - 10. 5 mg/dL [facility] Chloride [Moles/Vol] 105 mmol/L Normal 99.0 - 107.0 mmol/L [facility] Creatinine [Mass/Vol] 0.77 mg/dL Normal 0.6 - 1.3 mg/dL [facility] GFR/1.73 sq M.predicted (S/P/Bld) [Vol rate/Area] N/A Normal [facility] Globulin (S) [Mass/Vol] 3.0 g/dL Normal 1.7 - 3.8 g/dL [facility] Glucose post fast [Mass/Vol] 90 mg/dL Normal 70.0 - 105.0 mg/dL [facility] HCO3 [Moles/Vol] 27 mmol/L Normal 21.0 - 31.0 mmol/L [facility] Potassium [Moles/Vol] 4.0 mmol/L Normal 3.5 - 5.3 mmol/L [facility] Protein [Mass/Vol] 6.8 g/dL Normal 6.0 - 8.9 g/dL [facility] Sodium [Moles/Vol] 137 mmol/L Normal 135.0 - 1 45.0 mmol/L [facility] Urea nitrogen [Mass/Vol] 7.0 mg/dL Normal 7.0 - 25.0 mg/dL [facility] Urea nitrogen/Creatinine [Mass ratio] 9.0 Ratio Normal 6.0 - 22.0 Ratio [facility] LACTIC ACIDon 01-03-2022 Lactate [Moles/Vol] 0.94 mmol/L Normal 0.49-2.19 [facility] Comment on above: Result Comment: Bed: 11 KEEP ON ICE---WONG TOP TUBE Performed By: #### C BC #### [facility] [address] [facility]. [place], [place] [address] LIPASEon 01-03-2022 LIP 20 U/L Normal 1182 [facility] Comment on above: Result Comment: Bed: 11 Performed By: #### L IP #### [facility] [address], [place] [address] Lactate [Mass/volume] in Ser um or Plasmaon 01-03-2022 Lactate [Mass/Vol] 0.94 mmol/L Normal 0.49 - 2. 19 mmol/L [facility] Lipase [Enzymatic activity/v olume] in Serum oron 01-03-2022 Lipase [Catalytic activity/Vol] 20 U/L Normal 11.0 - 82.0 U/L [facility] URINEon 01-03-2022 Beta HCG ( test) Ql (U) Negative Normal Negative [facility] Comment on above: Result Comment: Bed: 11 . Performed By: #### C BC #### [facility] [address] URINALYSIS(REFLEX TO CULTURE )on 01-03-2022 BACTERIA,URINE Trace Normal NONE SEEN [facility] Comment on above: Performed By: #### C BC #### [facility] [address] [place], [place] [address] Bilirubin Ql (U) Negative Normal Negative [facility] Comment on above: Performed By: #### C BC #### [facility] [address] [place], [place] [address] Clarity (U) clear Normal Clear [facility] Comment on above: Performed By: #### C BC #### [facility] [address] [facility]. [place], [place] [address] Color (U) yellow Normal Yellow [facility] Comment on above: Performed By: #### C BC #### [facility] [address] [facility]. [place], [place] [address] EPITHELIAL SQUAMOUS, URINE 0-2 Normal NONE SEEN [facility] Comment on above: Performed By: #### C BC #### [facility] [address] [facility]. [place], [place] [address] Glucose Ql (U) Negative Normal Negative [facility] Comment on above: Performed By: #### C BC #### [facility] [address] [facility]. [place], [place] [address] Hemoglobin Ql (U) Negative Normal Negative [facility] Comment on above: Performed By: #### C BC #### [facility] [address] [place], [place] [address] KETONE Negative Normal Negative [facility] Comment on above: Performed By: #### C BC #### [facility] [address] [place], [place] [address] Leukocyte esterase Test strip Ql (U) Negative Normal Negative [facility] Comment on above: Performed By: #### C BC #### [facility] [address] [place], [place] [address] Nitrite Ql (U) Negative Normal Negative [facility] Comment on above: Performed By: #### C BC #### [facility] [address] [place], [place] [address] pH (U) 7 [pH] Normal 5.0-8.0 [facility] Comment on above: Performed By: #### C BC #### [facility] [address] [facility]. [place], [place] [address] Protein Ql (U) Trace Invalid Interpretation Code Negative [facility] Comment on above: Performed By: #### C BC #### [facility] [address] [address] RBC, URINE 0-2 Normal NONE SEEN [facility] Comment on above: Performed By: #### C BC #### [facility] [address] [place] [address] Specific gravity (U) [Rel density] 1.010 Normal 1.005-1.030 [facility] Comment on above: Performed By: #### C BC #### [facility] [address] [place] [address] URINE MICROSCOPY Yes Normal [facility] Comment on above: Performed By: #### C BC #### [facility] [address] [place] [address] URINE WBC 0-2 Normal NONE SEEN [facility] Comment on above: Performed By: #### C BC #### [facility] [address] [place] [address] UROBILIGEN Negative Normal NEG - 0.2 [facility] Comment on above: Performed By: #### C BC #### [facility] [address] [place] [address] Urinalysis dipstick W Reflex Culture panel (U)on 01-03-2022 Bacteria LM.HPF (Urine sed) [#/Area] Trace Normal NONE SEEN [facility] Bilirubin Ql (U) Negative Normal [facility] Clarity (U) clear Normal Clear [facility] Color (U) yellow Normal Yellow [facility] Epithelial cells.squamous LM.HPF (Urine sed) [#/Area] 0-2 Normal NONE SEEN [facility] Glucose Auto test strip Ql (U) Negative Normal [facility] Ketones Auto test strip Ql (U) Negative Normal [facility] Leukocyte esterase Auto test strip Ql (U) Negative Normal [facility] Microscopic method Nom (U) Yes Normal [facility] Nitrite Auto test strip Ql (U) Negative Normal [facility] pH (U) 7 [pH] Normal 5.0 - 8.0 [facility] Protein Auto test strip Ql (U) Trace Abnormal [facility] RBC LM.HPF (Urine sed) [#/Area] 0-2 Normal NONE SEEN [facility] RBC Ql (U) Negative Normal [facility] Specific gravity (U) [Rel density] 1.01 1 Normal 1.005 - 1.03 [facility] Urobilinogen Ql (U) Negative Normal [facility] WBC LM.HPF (Urine sed) [#/Area] 0-2 Normal NONE SEEN [facility] RPR, QUALon 11-18-2021 RPR, QUAL Non-Reactive Normal NONREACTIVE [facility] Comment on above: Result Comment: Emily [...] months to years. Performed By: #### C #### [facility] [address] [facility]. [place], [place] [address] Reagin Ab [Presence] in Seru m by RPRon 11-18-2021 Reagin Ab RPR Ql (S) Non-Reactive Normal Non AD [facility] CBC W Auto Differential pane l (Bld)on 11-14-2021 CBC W Auto Differential panel - Blood xxxxx Normal [facility] Basophils (Bld) [#/Vol] 0.1 10*3/uL Normal 0.0 - 0.2 x10^3/uL [facility] Basophils/100 WBC (Bld) 0.9 % Normal 0.0 - 2.0 % [facility] Eosinophils (Bld) [#/Vol] 0.1 10*3/uL Normal 0.0 - 0.7 x10^3/uL [facility] Eosinophils/100 WBC (Bld) 1.6 % Normal 0.0 - 7.0 % [facility] Erythrocyte distribution width (RBC) [Ratio] 12.3 % Normal 11.0 - 14.8 % [facility] Hematocrit (Bld) [Volume fraction] 41 % Normal 35.0 - 45.0 % [facility] Hemoglobin (Bld) [Mass/Vol] 14.0 g/dL Normal 12.0 - 16.0 g/dL [facility] Lymphocytes (Bld) [#/Vol] 2.6 10*3/uL Normal 1.0 - 4.8 x10^3/uL [facility] Lymphocytes/100 WBC (Bld) 35.8 % Normal 22.0 - 44.0 % [facility] Manual differential performed Ql (Bld) AUTO Normal * [facility] MCH (RBC) [Entitic mass] 30.6 pg Normal 27.0 - 34.0 pg [facility] MCHC (RBC) [Mass/Vol] 34.6 g/dL Normal 32.0 - 36.0 g/dL [facility] MCV (RBC) [Entitic vol] 89 fL Normal 80.0 - 97.0 fL [facility] Monocytes (Bld) [#/Vol] 0.7 10*3/uL Normal 0.0 - 0.9 x10^3/uL [facility] Monocytes/100 WBC (Bld) 9.6 % Normal 0.0 - 12.0 % [facility] Neutrophils (Bld) [#/Vol] 3.8 10*3/uL Normal 1.8 - 7.7 x10^3/uL [facility] Neutrophils/100 WBC (Bld) 52.1 % Normal 40.0 - 70.0 % [facility] Platelets (Bld) [#/Vol] 386 10*3/uL Normal 142.0 - 424.0 x10^3/uL [facility] RBC (Bld) [#/Vol] 4.6 10*6/uL Normal 3.8 - 5.1 x10^6/uL [facility] WBC corrected for nucl RBC Auto (Bld) [#/Vol] 7.3 x10^3/uL Normal 4.6 - 10.2 x10^3/uL [facility] CBC, AUTO DIFFon 11-14-2021 BASOPHILS (ABSOLUTE) 0.1 x10 3/uL Normal 0.0-0.2 [facility] Comment on above: Performed By: #### C BC #### [facility] [address] [place] [address] Basophils/100 WBC (Bld) 0.9 % Normal 0.0-2.0 [facility] Comment on above: Performed By: #### C BC #### [facility] [address] [place] [address] EOSINOPHILS (ABSOLUTE) 0.1 x10 3/uL Normal 0.0-0.7 [facility] Comment on above: Performed By: #### C BC #### [facility] [address] [place] [address] Eosinophils/100 WBC (Bld) 1.6 % Normal 0.0-7.0 [facility] Comment on above: Performed By: #### C BC #### [facility] [address] [place], [place] [address] Erythrocyte distribution width (RBC) [Ratio] 12.3 % Normal 11.0-14.8 [facility] Comment on above: Performed By: #### C BC #### [facility] [address] [place] [address] Hematocrit (Bld) [Volume fraction] 41 % Normal 35-45 [facility] Comment on above: Performed By: #### C BC #### [facility] [address] [place] [address] Hemoglobin (Bld) [Mass/Vol] 14.0 g/dL Normal 12.0-16.0 [facility] Comment on above: Performed By: #### C BC #### [facility] [address] [place] [address] LYMPHOCYTES (ABSOLUTE) 2.6 x10 3/uL Normal 1.0-4.8 [facility] Comment on above: Performed By: #### C BC #### [facility] [address] [place] [address] Lymphocytes/100 WBC (Bld) 35.8 % Normal 22.0-44.0 [facility] Comment on above: Performed By: #### C BC #### [facility] [address] [place] [address] Manual Differential panel (Bld) AUTO Normal * [facility] Comment on above: Performed By: #### C BC #### [facility] [address] [place] [address] MCH (RBC) [Entitic mass] 30.6 pg Normal 27.0-34.0 [facility] Comment on above: Performed By: #### C BC #### [facility] [address] [place], [place] [address] MCHC (RBC) [Mass/Vol] 34.6 g/dL Normal 32.0-36.0 [facility] Comment on above: Performed By: #### C BC #### [facility] [address] [place] [address] MCV (RBC) [Entitic vol] 89 fL Normal 80-97 [facility] Comment on above: Performed By: #### C BC #### [facility] [address] [place] [address] MDW xxxxx Normal [facility] Comment on above: Performed By: #### C BC #### [facility] [address] [place] [address] MONOCYTES (ABSOLUTE) 0.7 x10 3/uL Normal 0.0-0.9 [facility] Comment on above: Performed By: #### C BC #### [facility] [address] [place] [address] Monocytes/100 WBC (Bld) 9.6 % Normal 0.0-12.0 [facility] Comment on above: Performed By: #### C BC #### [facility] [address] [place] [address] NEUTROPHILS (ABSOLUTE) 3.8 x10 3/uL Normal 1.8-7.7 [facility] Comment on above: Performed By: #### C BC #### [facility] [address] [place] [address] Neutrophils/100 WBC (Bld) 52.1 % Normal 40.0-70.0 [facility] Comment on above: Performed By: #### C BC #### [facility] [address] [facility]. [place], [place] [address] PLATELETS 386 x10 3/uL Normal 142-424 [facility] Comment on above: Performed By: #### C BC #### [facility] [address] [facility]. [place], [place] [address] RED BLOOD COUNT 4.6 x10 6/uL Normal 3.8-5.1 [facility] Comment on above: Performed By: #### C BC #### [facility] [address] [facility]. [place], [place] [address] WHITE BLOOD COUNT 7.3 x10 3/uL Normal 4.6-10.2 [facility] Comment on above: Performed By: #### C BC #### [facility] [address] [facility]. [place], [place] [address] CHLAMYDIA PCRon 11-14-2021 CHLAMYDIA UA, ENDOCERV PCR Not detected Normal Not Detected [facility] Comment on above: Performed By: #### C BC #### [facility] [address] [facility]. [place], [place] [address] COMP METABOLIC PROFILEon Albumin [Mass/Vol] 4.3 g/dL Normal 3.3-5.7 [facility] Comment on above: Performed By: #### C META #### [facility] [address] [place], [place] [address] Albumin/Globulin [Mass ratio] 2.0 {ratio} Normal 1.1-2.5 [facility] Comment on above: Performed By: #### C META #### [facility] [address] [place], [place] [address] ALP [Catalytic activity/Vol] 66 U/L Normal 34-124 [facility] Comment on above: Performed By: #### C META #### [facility] [address] [place], [place] [address] ALT [Catalytic activity/Vol] 41 U/L Normal 7-52 [facility] Comment on above: Performed By: #### C META #### [facility] [address] [place], [place] [address] Anion gap [Moles/Vol] 8 mmol/L Normal 8-16 [facility] Comment on above: Performed By: #### C META #### [facility] [address] [place], [place] [address] AST [Catalytic activity/Vol] 28 U/L Normal 13-39 [facility] Comment on above: Performed By: #### C META #### [facility] [address] [place], [place] [address] Bilirubin [Mass/Vol] 0.6 mg/dL Normal 0.3-1.0 [facility] Comment on above: Performed By: #### C META #### [facility] [address] [place], [place] [address] BUN/CREATININE RATIO 18.0 Ratio Normal 6.0-22.0 [facility] Comment on above: Performed By: #### C META #### [facility] [address] [place], [place] [address] Calcium [Mass/Vol] 9.5 mg/dL Normal 8.5-10.5 [facility] Comment on above: Performed By: #### C META #### [facility] [address] [place], [place] [address] Chloride [Moles/Vol] 104 mmol/L Normal 99-107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 ASSISTANT 02/05/2021 1:14 PM Signed How to Manage [...] APRN.CAROLYN 02/05/2021 1:32 PM Signed SUBJECTIVE Whit Renae Armstrong is a 15 year old child [...] GENERAL: well (more content not included)... 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 She shares that parents are Restorationism and make me go to yazdanism, I go but I don't want to [...] name may l (more content not included)... [facility] OBSOLETEon 12-03-2020 OBSOLETE Refill (PSYCMN) WHIT ARMSTRONG ([id number]) 5 F T Date Time Provider Department 12/03/20 JAUN MCCOY PSYCMN During your visit today, we recorded the following information about you: Keiry Campos [facility] 12/04/2020 3:34 PM Addendum The medication was [...] Encounter Status:Closed by ALISTAIR CHINCHILLA on 12/04/20 [facility] CNDSon 11-08-2020 CNDS HNO ID: [id number] Author: Jaun Mccoy DO Service: Psychiatry Author [...] with father, stepmom and two siblings in [place], [place]. In terms of stressors, patient's family [...] No HOSPITAL COURSE Whit was admitted/transferred to [facility] and restricted to slaughter. Paperwork and [...] specifically reviewed (more content not included)... Normal [facility] NURSING PROGon 11-08-2020 NURSING PROG HNO ID: [id number] Author: Candace Brumfield RN Service: Nursing Author Type: Registered Nurse Type: Nursing Progress Note Filed: 11/08/2020 5:09 PM Note Text: Nursing Progress Note Patient Name: Whit Armstrong Patient Location[id number][facility] 450[facility] Daily Note: Patient presents as friendly,pleasant, and cooperative. When completing the shift interview, patient told this health technical writer you are currently talking to Jignesh, [...] water. Drank fluids while sitting with this health technical writer and reported relief. Returned to group. Will continue to monitor for comfort and safety. 1656- Patient discharged to home. Accompanied by dad and stepmom. All belongings returned to patient including home medication. Safety plan reviewed with family. Family in agreement with plan. Copy of plan placed in paper chart. Discharge teaching provided to family and patient. Teaching understood as evidenced by teach back method. This note was completed by: Candace Brumfield [facility] NURSING PROG HNO ID: [id number] Author: Cesar Adhikari RN Service: ? Author Type: Registered Nurse Type: Nursing Progress Note Filed: 11/07/2020 11:15 PM Note Text: Nursing Progress Note Patient Name: Whit Armstrong Patient [id number][facility] 4504-00 Daily Note: Pt attended movie. He has [...] This note was completed by: Cesar Adhikari [facility] SOCIAL WORKon 11-08-2020 SOCIAL WORK HNO ID: [id number] Author: ANTONIO Bhardwaj Service: Social Work Author Type: Financial Services Education Consultant Type: Social Work Filed: 11/08/2020 9:32 AM Note Text: CHILD AND ADOLESCENT PSYCHIATRY SOCIAL WORK ONGOING ASSESSMENT PATIENT NAME: Whit Armstrong ADDRESS: [address] [place] [id number] COUNTY: [place] ADMIT DATE: 11/04/2020 DATE of SERVICE: 11/08/2020 Whit was discussed in treatment team. Whit is ready for discharge at the time of this note. Collateral information collected: Phone call to patients father to discuss discharge for today, father is in agreement and and will be in about 4:30pm to merchandise pickup/receiving associate patient today. Reviewd with father that [facility] has given him a contact name of a provider to see the patient upon discharge until regular therapist is back from vacation, father confirmed and he will call to schedule. Follow-up: [facility] providers: Future Appointments Date Time Provider Department Center 12/18/2020 1:45 PM Noemí Grimaldo MD [facility] - Current psychiatrist ? Name:?Dr Noemí Grimaldo Agency:?[facility] Location:?[facility]? Phone:?[phone] Next appointment confirmed?December 18, 2020 at 1:45pm ? - Current therapist Name:?Kwaku - Agency:?[facility]? Location:?[place] Office? Next appointment confirmed: November 24, 2020 12pm and November 30, 2020 at 5pm? ? - Other: Name:?Ofe Wong ?[employer] Phone:?[phone] ?Ext. [phone] Next appointment:upon return to school as needed.? ? Autism Evaluation Options: -[facility]?[phone] - Daily Behavioral Health? SIGNATURE: ANTONIO Bhardwaj DATE of SERVICE: 11/08/2020 TIME of SERVICE: 7:32 AM [facility] HNO ID: [id number] Author: Steven Asif Service: Music Therapy Author [...] schedule allows, ITP reviewed Therapist: Vicenta Chavez [facility] ALLIED HEALTH HNO ID: [id number] Author: Steven Asif Service: Music Therapy Author [...] schedule allows, ITP reviewed Therapist: JOSESITO Asif [facility] NURSING PROGon 11-07-2020 NURSING PROG HNO ID: [id number] Author: Candace Brumfield RN Service: Nursing Author Type: Registered Nurse Type: Nursing Progress Note Filed: 11/07/2020 1:10 PM Note Text: Nursing Progress Note Patient Name: Whit Armstrong Patient [place] [address] [address]-00 Daily Note: Patient presents as pleasant and [...] This note was completed by: Candace Brumfield [facility] NURSING PROG HNO ID: [id number] Author: Julio Haque, RN Service: Nursing Author Type: Registered Nurse Type: Nursing Progress Note Filed: 11/06/2020 10:21 PM Note Text: Nursing Progress Note Patient Name: Whit Armstrong Patient Location: [id number]/[facility] 4504-00 Daily Note: The patient has been pleasant, [...] This note was completed by: LISA Pressley, RN-[facility] SOCIAL WORKon 11-07-2020 SOCIAL WORK HNO ID: [id number] Author: ANTONIO Bhardwaj Service: Social Work Author Type: Financial Services Education Consultant Type: Social Work Filed: 11/07/2020 10:27 AM Note Text: CHILD AND ADOLESCENT PSYCHIATRY SOCIAL WORK ONGOING ASSESSMENT PATIENT NAME: Whit Armstrong ADDRESS: [address] [place] [address] COUNTY: [place] ADMIT DATE: 11/04/2020 DATE of SERVICE: 11/07/2020 Whit was discussed in treatment team. Whit is not ready for discharge at the time of this note. Collateral information collected: Follow up set as noted below, will continue to assist as needed. Anticipate discharge for or Thursday. Follow-up: [facility] providers: Future Appointments Date Time Provider Department Center 12/18/2020 1:45 PM Noemí Grimaldo MD [facility] - Current psychiatrist ? Name:?Dr Noemí Grimaldo Agency:?[facility] Location:?[facility]? Phone:?[phone] Next appointment confirmed December 18, 2020 at 1:45pm ? - Current therapist Name:?Kwaku - Agency:?[facility]? Location:?[place] Office? Next appointment confirmed: November 24, 2020 12pm and November 30, 2020 at 5pm ? - Other: Name: Ofe Wong [facility] Ext. [phone] Next appointment:upon return to school as needed. ? Autism Evaluation Options: -[facility] [phone] - Daily Behavioral Health SIGNATURE: ANTONIO Bhardwaj DATE of SERVICE: 11/07/2020 TIME of SERVICE: 7:52 AM [facility] ALLIED HEALTH 11-06-2020 ALLIED HEALTH HNO ID: [id number] Author: SERENE Hendrix Service: Recreational Therapy Author Type: Therapist Type: Allied Health Filed: 11/06/2020 9:01 PM Note Text: RECREATIONAL THERAPY NOTE CHILD AND ADOLESCENT PSYCHIATRY Name: Whit Armstrong Topic of Note: Progress Note DATE: 11/06/2020 TIME: 1744 Group Topic: Self Awareness Duration of Attendance: 60/60 minutes Brief Description of Performance: Pt present and active in Recreation Therapy group ([facility]). Pt was calm, cooperative, and invested; pt followed verbal and written directions with moderate redirection to stay on topic; pt completed task appropriately and actively engaged in the group discussion re: 'things in control and things out of control . Pt was bright, social, and engaged. Signature: Haily Ballard Date: November 06, 2020 Time: 9:00 PM [facility] ALLIED HEALTH HNO ID: [id number] Author: SERENE Hendrix Service: Recreational Therapy Author Type: Therapist Type: Allied Health Filed: 11/06/2020 3:44 PM Note Text: RECREATIONAL THERAPY NOTE CHILD AND ADOLESCENT PSYCHIATRY Name: Whit Armstrong Topic of Note: Progress Note DATE: 11/06/2020 TIME: 1000 Group Topic: Coping Skills Time: 1000 Duration of Attendance: 60/60 minutes Brief Description of Performance: Pt present and active in Recreation Therapy group (coping skills planner). Pt was calm, cooperative, and invested; pt followed verbal and written directions with minimal redirection; pt completed task appropriately and actively engaged in the group discussion re: 'positive and negative coping skills . Pt was bright, social, and engaged. Signature: Haily Ballard Date: November 06, 2020 Time: 3:43 PM [facility] NURSING PROGon 11-06-2020 NURSING PROG HNO ID: [id number] Author: Zulay Gray RN Service: Psychiatry Author Type: Registered Nurse Type: Nursing Progress Note Filed: 11/06/2020 5:46 PM Note Text: Nursing Progress Note Patient Name: Whit Armstrong Patient Location[place] [address] [address]- Daily Note:Assumed care of pt at 0730. [...] note was completed by: Zulay Gray Normal [facility] NURSING PROG HNO ID: [id number] Author: eGo Bowling RN Service: Nursing Author Type: Registered [...] stay asleep. Will maintain standard precautions Normal [facility] SOCIAL WORKon 11-06-2020 SOCIAL WORK HNO ID: [id number] Author: ANTONIO Bhardwaj Service: Social Work Author Type: Financial Services Education Consultant Type: Social Work Filed: 11/06/2020 2:22 PM Note Text: CHILD AND ADOLESCENT PSYCHIATRY SOCIAL WORK ONGOING ASSESSMENT PATIENT NAME: Whit Armstrong ADDRESS: [address] [place] [id number] COUNTY: [place] ADMIT DATE: 11/04/2020 DATE of SERVICE: 11/06/2020 Whit was discussed in treatment team. Whit is not ready for discharge at the time of this note. Collateral information collected: Phone call to [facility] to confirm next appointments and speak with therapist. A message will be sent to the therapist to call health social work professor back when she is free. Spoke with glenn Medina counselor, she is aware of the admission. [...] work with the patient as needed. Follow-up: [facility] providers: Future Appointments Date Time Provider Department Center 12/18/2020 1:45 PM Noemí Grimaldo MD [facility] - Current psychiatrist Name: Dr Noemí Grimaldo Agency: [facility] Location: [facility] Next appointment confirmed December 18, 2020 at 1:45pm ? - Current therapist Name: Kwaku - Agency: [facility] Location: [place] Office Next appointment confirmed: November 24, 2020 12pm and November 30, 2020 at 5pm - Other: Name: Ofe Wong [employer] Ext. [phone] Next appointment:upon return to school as needed. Autism Evaluation Options: -[facility] [phone] - Daily Behavioral Health SIGNATURE: ANTONIO Bhardwaj DATE of SERVICE: 11/06/2020 TIME of SERVICE: 8:04 AM [facility] HNO ID: [id number] Author: Chaplain Zuleima Service: ? Author Type: Director Of Promotions Type: Allied Health Filed: 11/05/2020 5:01 PM [...] leave but per request stayed, and this learning coordinator was going over the Missing part in person, which seemed like they appreciated. SIGNATURE: Chaplain Zuleima PATIENT NAME: Whit Armstrong DATE: November 05, 2020 TIME: 4:58 PM PAGER[facility]CONTACT #: [facility] HNO ID: [id number] Author: SERENE Hendrix Service: Recreational Therapy Author [...] re: 'color psychology'; pt was prompted by TALENT SOURCING SPECIALIST to identify three emotions that they have experienced in the past month, pt identified (worried, frustrated, and depressed). Pt overall was bright, social, and engaged. Signature: Haily Ballard Date: November 05, 2020 Time: 3:59 PM [facility] ALLIED HEALTH HNO ID: [id number] Author: SERENE Hendrix Service: Recreational Therapy Author [...] work on completion throughout admission. SERENE Hendrix [facility] ALLIED HEALTH HNO ID: [id number] Author: SERENE Hendrix Service: Recreational Therapy Author Type: Therapist Type: Allied Health Filed: 11/05/2020 2:32 PM Note Text: RECREATIONAL THERAPY ASSESSMENT CHILD AND ADOLESCENT PSYCHIATRY Name: Whit Armstrong Date of Service: 11/05/2020 Time of Service: 1427 REASON FOR ADMISSION: SA- tried to overdose [...] independent programming daily, as seen appropriate by TALENT SOURCING SPECIALIST The pt will practice utilizing positive, appropriate, and effective coping skills by engaging in therapeutic activities. The pt will practice expressing thoughts, feelings, and emotions by participating in creative expression AND self awareness groups facilitated by TALENT SOURCING SPECIALIST The pt will practice positive communication by engaging in conversations with treatment team and peers throughout admission. GENERAL OBSERVATIONS: Alert Clean and groomed Communicates easily Cooperative Eye Contact: Appropriate Good attitude Guarded Oriented Pleasant Signature: Haily Ballard Date: November 05, 2020 Time: 2:28 PM [facility] CBC and Differentialon 11-05 Abs Baso 0.06 k/uL High <0.06 [facility] Comment on above: Performed By: #### C MP, CBCDIF, LIPB, TSH ####[facility] [place], [place] [phone]#### HBA1C ####[facility] [place], [place] [phone] Abs Shasta 1.01 k/uL High 0.18-0.78 [facility] Comment on above: Performed By: #### C MP, CBCDIF, LIPB, TSH ####[place] [address]#### HBA1C ####[place] [address] [place] [phone] Abs Neut 7.09 k/uL Normal 1.54-7.47 [facility] Comment on above: Performed By: #### C MP, CBCDIF, LIPB, TSH ####[place] [address]#### HBA1C ####[place] [address] [place] [phone] Absolute nRBC <0.01 Low 0.03-0.13 [facility] Comment on above: Performed By: #### C MP, CBCDIF, LIPB, TSH ####[place] [address]#### HBA1C ####[place] [address] [place] [address] [phone] Basophils/100 WBC (Bld) 0.6 % Normal [facility] Comment on above: Performed By: #### C MP, CBCDIF, LIPB, TSH ####[place] [address]#### HBA1C ####[place] [address] [place] [phone] DTYPE Auto Diff Normal [facility] Comment on above: Performed By: #### C MP, CBCDIF, LIPB, TSH ####[place] [address]#### HBA1C ####[place] [address] [place] [address] [place] [phone] Eosinophils (Bld) [#/Vol] 0.11 10*3/uL Normal <0.39 [facility] Comment on above: Performed By: #### C MP, CBCDIF, LIPB, TSH ####[place] [address]#### HBA1C ####[place] [address] [place] [address] [place] [phone] Eosinophils/100 WBC (Bld) 1.0 % Normal [facility] Comment on above: Performed By: #### C MP, CBCDIF, LIPB, TSH ####[place] [address]#### HBA1C ####[place] [address] [place] [address] [place] [phone] Erythrocyte distribution width (RBC) [Ratio] 12.2 % Low 12.3-14.6 [facility] Comment on above: Performed By: #### C MP, CBCDIF, LIPB, TSH ####[place] [address]#### HBA1C ####[place] [address] [place] [address] [place] [phone] Hematocrit (Bld) [Volume fraction] 42.6 % Normal 33.4-46.0 [facility] Comment on above: Performed By: #### C MP, CBCDIF, LIPB, TSH ####[place] [address]#### HBA1C ####[place] [address] [place] [address] [place] [phone] Hemoglobin (Bld) [Mass/Vol] 14.6 g/dL Normal 10.8-15.5 [facility] Comment on above: Performed By: #### C MP, CBCDIF, LIPB, TSH ####[place] [address]#### HBA1C ####[place] [address] [place] [address] [place] [phone] Lymphocytes (Bld) [#/Vol] 2.30 10*3/uL Normal 0.97-3.33 [facility] Comment on above: Performed By: #### C MP, CBCDIF, LIPB, TSH ####[place] [phone]#### HBA1C ####[place] [address] [place] [address] [place] [phone] Lymphocytes/100 WBC (Bld) 21.8 % Normal [facility] Comment on above: Performed By: #### C MP, CBCDIF, LIPB, TSH ####[place] [phone]#### HBA1C ####[place] [address] [address] [place] [phone] MCH 30.5 pG High 24.8-30.2 [facility] Comment on above: Performed By: #### C MP, CBCDIF, LIPB, TSH ####[place] [address]#### HBA1C ####[place] [address] [address] [place] [phone] MCHC (RBC) [Mass/Vol] 34.3 g/dL Normal 31.5-34.8 [facility] Comment on above: Performed By: #### C MP, CBCDIF, LIPB, TSH ####[place] [phone]#### HBA1C ####[place] [address] [address] [place] [phone] MCV (RBC) [Entitic vol] 88.9 fL Normal 76.7-90.6 [facility] Comment on above: Performed By: #### C MP, CBCDIF, LIPB, TSH ####[place] [phone]#### HBA1C ####[place] [address] [place] [address]Cleveland[place] [phone] Monocytes/100 WBC (Bld) 9.6 % Normal [facility] Comment on above: Performed By: #### C MP, CBCDIF, LIPB, TSH ####[place] [id number]#### HBA1C ####[place] [address] [place] AveClevelRichard [place] [phone] Neutrophils/100 WBC (Bld) 67.0 % Normal [facility] Comment on above: Performed By: #### C MP, CBCDIF, LIPB, TSH ####[place] [address]#### HBA1C ####[place] [address] [place] AveClevelRichard [place] [phone] NRBCs 0.0 /100 WBC Normal 0 [facility] Comment on above: Performed By: #### C MP, CBCDIF, LIPB, TSH ####[address]#### HBA1C ####[place] [address] [place] AveClevelRichard [place] [phone] Platelet mean volume (Bld) [Entitic vol] 8.7 fL Low 9.6-11.8 [facility] Comment on above: Performed By: #### C MP, CBCDIF, LIPB, TSH ####[place] [address]#### HBA1C ####[place] [address] [place] AveClevelRichard [place] [phone] Platelets (Bld) [#/Vol] 412 10*3/uL High 150-400 [facility] Comment on above: Performed By: #### C MP, CBCDIF, LIPB, TSH ####[address]#### HBA1C ####[place] [address] [place], [place] [phone] RBC (Bld) [#/Vol] 4.79 10*6/uL Normal 3.93-5.29 [facility] Comment on above: Performed By: #### C MP, CBCDIF, LIPB, TSH ####[place] [phone]#### HBA1C ####[place] [address] [place], [place] [phone] WBC (Bld) [#/Vol] 10.57 10*3/uL High 3.84-9.84 [facility] Comment on above: Performed By: #### C MP, CBCDIF, LIPB, TSH ####[place] [phone]#### HBA1C ####[address] [phone] Comp Metabolic Panelon 11-05 Albumin [Mass/Vol] 4.6 g/dL Normal 3.5-5.0 [facility] Comment on above: Performed By: #### C MP, CBCDIF, LIPB, TSH ####[place] [phone]#### HBA1C ####[address] [phone] ALP [Catalytic activity/Vol] 88 U/L Normal 57-254 [facility] Comment on above: Result Comment: Refe [...] By: #### C MP, CBCDIF, LIPB, TSH ####[place] [phone]#### HBA1C ####[place] [address] [place] [phone] ALT [Catalytic activity/Vol] 26 U/L Normal 0-45 [facility] Comment on above: Performed By: #### C MP, CBCDIF, LIPB, TSH ####[place] [address]#### HBA1C ####[place] [address] [place] [phone] Anion gap [Moles/Vol] 13 mmol/L Normal 9-18 [facility] Comment on above: Performed By: #### C MP, CBCDIF, LIPB, TSH ####[address]#### HBA1C ####[place] [phone] AST [Catalytic activity/Vol] 19 U/L Normal 7-40 [facility] Comment on above: Performed By: #### C MP, CBCDIF, LIPB, TSH ####[place] [address]#### HBA1C ####[place] [address] [address] [place] [phone] Bilirubin [Mass/Vol] 0.5 mg/dL Normal 0.2-1.3 [facility] Comment on above: Result Comment: (NOT E) Reference ranges for this patient's age group have not been established. These reference ranges reflect verified or established ranges for the adult population. Interpret these ranges with caution using the clinical context and additional reference resources. Performed By: #### C MP, CBCDIF, LIPB, TSH ####[place] [id number]#### HBA1C ####[place] [address] [place] [phone] Calcium [Mass/Vol] 10.0 mg/dL Normal 8.5-10.5 [facility] Comment on above: Performed By: #### C MP, CBCDIF, LIPB, TSH ####[place] [phone]#### HBA1C ####[place] [address] [place] [address] [phone] Chloride [Moles/Vol] 104 mmol/L Normal 98-110 [facility] Comment on above: Performed By: #### C MP, CBCDIF, LIPB, TSH ####[place] [phone]#### HBA1C ####[place] [address] [place] [address] [phone] CO2 [Moles/Vol] 25 mmol/L Normal 23-32 [facility] Comment on above: Performed By: #### C MP, CBCDIF, LIPB, TSH ####[place] [address]#### HBA1C ####[place] [address] [place] [address] [phone] Creatinine [Mass/Vol] 0.72 mg/dL Normal 0.30-1.20 [facility] Comment on above: Performed By: #### C MP, CBCDIF, LIPB, TSH ####[place] [address]#### HBA1C ####[place] [address] [place] [address] [phone] Glucose [Mass/Vol] 93 mg/dL Normal 65-100 [facility] Comment on above: Performed By: #### C MP, CBCDIF, LIPB, TSH ####[place] [phone]#### HBA1C ####[place] [address] [place] [address] [phone] Potassium [Moles/Vol] 4.4 mmol/L Normal 3.5-5.0 [facility] Comment on above: Performed By: #### C MP, CBCDIF, LIPB, TSH ####[place] [phone]#### HBA1C ####[place] [address] [place] [address] [phone] Protein [Mass/Vol] 7.6 g/dL Normal 6.0-8.4 [facility] Comment on above: Performed By: #### C MP, CBCDIF, LIPB, TSH ####[place] [address]#### HBA1C ####[place] [phone] Sodium [Moles/Vol] 142 mmol/L Normal 132-148 [facility] Comment on above: Performed By: #### C MP, CBCDIF, LIPB, TSH ####[address]#### HBA1C ####[place] [phone] Urea nitrogen [Mass/Vol] 12 mg/dL Normal 5-20 [facility] Comment on above: Performed By: #### C MP, CBCDIF, LIPB, TSH ####[address]#### HBA1C ####[place] [address] [place] [phone] HISTORY PHYSICALon HISTORY PHYSICAL HNO ID: [id number] Author: Jaun Mccoy DO Service: Pediatric Psychiatry Author Type: Physician Type: HANDP Filed: 11/05/2020 2:31 PM Note Text: CHILD AND ADOLESCENT PSYCHIATRY HISTORY AND PHYSICAL PATIENT NAME: Whit Armstrong DATE of SERVICE: 11/05/2020 TIME of SERVICE: 10:57 AM [facility] STAFF: TEACHING PHYSICIAN NOTE OF PERSONAL INVOLVEMENT [...] with father, stepmom and two siblings in [place], [place]. In terms of stressors, patient's family [...] gender identific (more content not included)... Normal [facility] Hemoglobin A1con 11-05-2020 Glucose [Mass/Vol] 94 mg/dL Normal [facility] Comment on above: Result Comment: eAG: (Estimated average glucose) is a calculated value from HgbA1c and is account manager sales representative of the average blood glucose level in the last 2-3 month period. Performed By: #### C MP, CBCDIF, LIPB, TSH ####[address]#### HBA1C ####[place] [address] [place] [phone] HbA1c (Bld) [Mass fraction] 4.9 % Normal 4.3-5.6 [facility] Comment on above: Result Comment: [facility] Diabetes Association guidelines indicate that patients with HgbA1c in the range 5.7-6.4% are at increased risk for development of diabetes, and intervention by lifestyle modification may be beneficial. HgbA1c greater or equal to 6.5% is considered diagnostic of diabetes. Performed By: #### C MP, CBCDIF, LIPB, TSH ####[place] [address]#### HBA1C ####[place] [phone] Lipid Panel, Basic 021 Cholesterol [Mass/Vol] 213 mg/dL High <170 [facility] Comment on above: Performed By: #### C MP, CBCDIF, LIPB, TSH ####[place] [address]#### HBA1C ####[place] [phone] Cholesterol in HDL [Mass/Vol] 42 mg/dL Low >45 [facility] Comment on above: Performed By: #### C MP, CBCDIF, LIPB, TSH ####[address]#### HBA1C ####[place] [address] [place] [phone] Cholesterol in LDL [Mass/Vol] 145 mg/dL High <110 [facility] Comment on above: Performed By: #### C MP, CBCDIF, LIPB, TSH ####[place] [phone]#### HBA1C ####[place] [address] [place] [address] LDL:HDL Ratio 3.45 High <2.42 [facility] Comment on above: Performed By: #### C MP, CBCDIF, LIPB, TSH ####[place] [address]#### HBA1C ####[place] [address] [place] [address] Non HDL Cholesterol 171 mg/dL High <120 [facility] Comment on above: Performed By: #### C MP, CBCDIF, LIPB, TSH ####[place] [address]#### HBA1C ####[place] [address] TC:HDL Ratio 5.07 High <3.76 [facility] Comment on above: Performed By: #### C MP, CBCDIF, LIPB, TSH ####[place] [address]#### HBA1C ####[place] [address] [place] [address] Triglyceride [Mass/Vol] 128 mg/dL High <90 [facility] Comment on above: Performed By: #### C MP, CBCDIF, LIPB, TSH ####[place] [address]#### HBA1C ####[place] [address] [place] [address] VLDL Cholesterol 26 mg/dL High <18 [facility] Comment on above: Performed By: #### C MP, CBCDIF, LIPB, TSH ####[place] [address]#### HBA1C ####[place] [address] [address] [place], [place] [phone] NURSING PROGon 11-05-2020 NURSING PROG HNO ID: [id number] Author: Leigh Cordova RN Service: Psychiatry Author Type: Registered Nurse Type: Nursing Progress Note Filed: 11/05/2020 5:59 PM Note Text: Nursing Progress Note Patient Name: Whit Armstrong Patient Location: [id number]/[facility] 450-00 Daily Note: 0900: Pt is talkative and [...] crying, reporting having a panic attack. This health technical writer encouraging deep breathing techniques. MD notified. No new orders at this time. 1230: Pt approached nurses station, appearing calmer and smiling. Pt gave this health technical writer a colored picture. 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 1500: Pt is brighter and calmer. Attending groups and remains socially appropriate. This note was completed by: Leigh Cordova [facility] SOCIAL WORKon 11-05-2020 SOCIAL WORK HNO ID: [id number] Author: ANTONIO Bhardwaj Service: Social Work Author Type: Financial Services Education Consultant Type: Social Work Filed: 11/05/2020 2:47 PM Note Text: CHILD AND ADOLESCENT PSYCHIATRY SOCIAL WORK INITIAL ASSESSMENT PATIENT NAME: Whit Armstrong ADDRESS: [id number] [id number] COUNTY: [place] ADMIT DATE: 11/04/2020 DATE of SERVICE: 11/05/2020 DEMOGRAPHIC ADMISSION DATA Accompanied by Bio dad Custody: biologic father Family Contact Information: - biologic father's cell number: Nilesh [phone] - biologic mother's cell number: mother has minimal contact with patient. - Step mother: Dominique is involved with the patient [phone] PRESENTING INFORMATION: Whit Armstrong is 14 year [...] psychiatrist? Yes, Name: Dr Noemí Grimaldo Agency: [facility] Location: [facility] Next appointment confirmed? Yes, December 18, 2020 at 1:45pm - Current therapist Name: Kwaku - has temporary provider until next December 04, 2020 with Kwaku Agency: [facility] Location: [place] Office Next appointment confirmed? Yes, October with a temporary therapist until regular therapist has more opening in her schedule. - Psychiatric hospitalizations? Yes, 1 prior at [facility] - Safety concerns? Per family, household has [...] home and 3 year old sister in [place], [place]. - Other pertinent family members? Mother, [...] in 9th grade in mainstream classes at [employer]. - In terms of behavior, there is [...] provide contact name and phone number) Yes, [facility] will develop a plan for patient to [...] her ho (more content not included)... Normal [facility] TSHon 11-05-2020 TSH Qn 0.851 m[IU]/L Normal 0.510-4.300 [facility] Comment on above: Result Comment: Refe rence ranges were not locally established for this patient's age group. The normal values are based on the following source: Soila Suresh V. Reference Ranges for Adults and Children: Pre-analytical Considerations. [facility] Performed By: #### C MP, CBCDIF, LIPB, TSH ####[facility] [place], [place] [phone]#### HBA1C ####[facility] [address] [place], [place] [phone] CNDSon 11-04-2020 CNDS HNO ID: [id number] Author: Joaquin John MD Service: Pediatric Hospital [...] given 25g activated charcoal and transferred to [facility] for monitoring and management. In [facility], she remained HDS and course was unremarkable. Repeat EKG was stable. Psych was consulted and recommended inpatient treatment, to which the patient and family were agreeable. Patient was discharged to inpatient psychiatry facility. Transitions of Care Critical Issues: none LABS AND PROCEDURES PENDING AT DISCHARGE: No pending results. Consulting Teams During Hospitalization: PICU Treatment Team: Attending Provider: Joaquin John MD Primary Service: Pedjustin Martinez Patient Condition @ Discharge: Stable Discharge [...] Center 12/18/2020 1:45 PM Noemí Grimaldo MD [facility] Transitional Care Management services to be provided by: [facility] PCP SIGNATURE: Kwesi Smith MD; Alissa Sandoval MS Red team sales and marketing intern pager: [phone]. Senior pager: [phone] -clickable links DATE: 11/04/2020 TIME: 7:14 AM [facility] TEACHING STAFF PHYSICIAN NOTE OF PERSONAL INVOLVEMENT [...] this patient Joaquin John MD FAAP FACP [facility] Internal Medicine-Pediatrics [facility] Medicine/IMPACT Pager: [phone] Date of Service: November 04, 2020 Time of Service: 12:43 PM Normal [facility] HCG Qual, Urineon 11-04-2020 Beta HCG ( test) Ql (U) Negative Normal [facility] Comment on above: Performed By: #### U A, UTOX2, [facility] #### [facility] [address] [place] [address] NURSING PROGon 11-04-2020 NURSING PROG HNO ID: [id number] Author: Claudia Brice RN Service: Psychiatry Author [...] note was completed by: Claudia Brice RN [facility] NURSING PROG HNO ID: [id number] Author: Zulay Gray RN Service: Psychiatry Author Type: Registered Nurse Type: Nursing Progress Note Filed: 11/04/2020 7:18 PM Note Text: IP NURSING BEHAVIORAL HEALTH PEDIATRIC ADMISSION NOTE Whit Armstrong [id number] Whit Armstrong is a 14 year old, female Admitted to Room 4 Medical Billing Assistant Community Psychiatrist Pediatrics General Admission Time of [...] herself. Pt has two previous admissions to [facility]. Pt's father does not want him to be on Celexa d/t concerns that it caused him to be more irritable and have suicidal thoughts. Pt scored as a high suicide risk per SAFE-T but no 1:1 order needed. Suicide/Homicide Assessment Zulay Gray RN Nursing Progress Note This note was completed by: Zulay Gray [facility] NURSING PROG HNO ID: [id number] Author: Rodney Lee RN Service: ? Author Type: Registered Nurse Type: Nursing Progress Note Filed: 11/04/2020 5:24 PM Note Text: Nursing Progress Note Patient Name: Whit Armstrong Patient Location: [place] 002/M030-02 Daily Note: Assumed care of patient at 0730 following report from JOAO Solorzano. Patient resting in bed with plate glass grinder at the bedside. Patient reports still feeling depressed, but better this morning. Suicide precautions in place. Patient assessed per NPR. No changes in assessment at this time. Will continue to monitor. 0930: Per , patient may leave the floor in a wheelchair with plate glass grinder and IV may be removed. 1614: Report called to [place]. 1722: Patient transported to [place] at this time. This note was completed by: Rodney Lee [facility] Toxicology Screen,Uron 11-04 Amphetamines, Urine Negative Normal Negative [facility] Comment on above: Result Comment: Cuto ff threshold at 1000 ng/mL. Performed By: #### U ZAINAB Rogesr UHCG #### [phone] Barbiturates, Urine Negative Normal Negative [facility] Comment on above: Result Comment: Cuto ff threshold at 200 ng/mL. Performed By: #### ZAINAB Felder UHCG #### [phone] Benzodiazepines, Ur Negative Normal Negative [facility] Comment on above: Result Comment: Cuto ff threshold at 200 ng/mL. Performed By: #### U ZAINAB Rogers CG #### [place] [phone] Cannabinoids, Urine Negative Normal Negative [facility] Comment on above: Result Comment: Cuto ff threshold at 50 ng/mL. Performed By: #### U A, UTOX2, UHCG #### [place] [address] Cocaine, Urine Negative Normal Negative [facility] Comment on above: Result Comment: Cuto ff threshold at 300 ng/mL. Performed By: #### U A, UTOX2, UHCG #### [place] [address] Ethanol, Urine <11 Normal <11 [facility] Comment on above: Performed By: #### U A, UTOX2, UHCG #### [place] [address] Opiates, Urine Negative Normal Negative [facility] Comment on above: Result Comment: Cuto ff threshold at 300 ng/mL. Performed By: #### U A, UTOX2, UHCG #### [place] [address] Oxycodone, Urine Negative Normal Negative [facility] Comment on above: Result Comment: Cuto [...] on the same specimen through Client Services ([phone]) if contacted within 48 hours of initial testing. [1]Substance Abuse and Mental Health Services Administration (2012). Clinical Drug Testing in Primary Care Technical Assistance Publication Series 32. Department of Health and Human Services, [place], p.10. Performed By: #### U A, UTOX2, UHCG #### [place] [address] Phencyclidine, Urine Negative Normal Negative [facility] Comment on above: Result Comment: Cuto ff threshold at 25 ng/mL. Performed By: #### U A, UTOX2, UHCG #### [place] [address] Urinalysison 11-04-2020 Bacteria Rare Critically abnormal Negative [facility] Comment on above: Performed By: #### U A, UTOX2, UHCG #### [place] [address] Bilirubin, Urine Negative Normal Negative [facility] Comment on above: Performed By: #### U A, UTOX2, UHCG #### [place] [address] Clarity (U) Clear Normal Clear [facility] Comment on above: Performed By: #### U A, UTOX2, UHCG #### [place] [address] Color (U) Light Yellow Critically abnormal Yellow [facility] Comment on above: Performed By: #### U A, UTOX2, UHCG #### [place] [address] Comments SEE COMMENT Normal [facility] Comment on above: Result Comment: Micr oscopic Examination Performed Performed By: #### U A, UTOX2, UHCG #### [place] [address] Epithelial cells LM Ql (Urine sed) SEE COMMENT Critically abnormal Negative [facility] Comment on above: Result Comment: Few Squamous Epithelial Cells Performed By: #### U A, UTOX2, UHCG #### [place] [address] Glucose Ql (U) Negative Normal Negative [facility] Comment on above: Performed By: #### U A, UTOX2, UHCG #### [place] [phone] Hemoglobin/Blood,Ur Negative Normal Negative [facility] Comment on above: Performed By: #### U A, UTOX2, UHCG #### [place] [phone] Ketones Ql (U) Negative Normal Negative [facility] Comment on above: Performed By: #### U A, UTOX2, UHCG #### [place] [phone] Leukest Negative Normal Negative [facility] Comment on above: Performed By: #### U A, UTOX2, UHCG #### [place] [phone] Mucus Ql (Urine sed) Present Normal [facility] Comment on above: Performed By: #### U A, UTOX2, UHCG #### [place] [phone] Nitrite Ql (U) Negative Normal [facility] Comment on above: Performed By: #### U A, UTOX2, UHCG #### [place] [phone] pH (U) 6.0 [pH] Normal 5.0-8.0 [facility] Comment on above: Performed By: #### U A, UTOX2, UHCG #### [place] [phone] Protein, Urine Trace Critically abnormal Negative [facility] Comment on above: Performed By: #### U A, UTOX2, UHCG #### [place] [phone] RBC (U) [#/Vol] Negative Normal [facility] Comment on above: Performed By: #### U A, UTOX2, UHCG #### [place] [address] Specific [place], Ur 1.027 Normal 1.005-1.030 [facility] Comment on above: Performed By: #### U Sue UTOX2, UHCG #### [place] [id number] [place] [phone] Urobilinogen (U) [Mass/Vol] Negative Normal Negative [facility] Comment on above: Performed By: #### U Sue UTOX2, CG #### [phone] WBC 0-5 Critically abnormal Negative [facility] Comment on above: Performed By: #### Anjel Rogers UTOX2, CG #### [place] [phone] NURSING PROGon 11-03-2020 NURSING PROG HNO ID: [id number] Author: Rashad Minor RN Service: Nursing Author Type: Registered Nurse Type: Nursing Progress Note Filed: 11/03/2020 8:05 PM Note Text: Nursing Progress Note Patient Name: Whit Armstrong Patient Location: [place] [id number]- Daily Note: 2000: Assumed care of pt, alert and oriented in stable condition. 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 Denies pain or discomfort. PERRL, hand grasps and push pulls strong and even b/l. Lungs CTA, no sob or labored breathing noted. Abd soft and non tender, bowel sounds active x4. See NPR for full assessment. Will CTM. This note was completed by: Rashad Horton [facility] NURSING PROG HNO ID: [id number] Author: Alice Obregon RN Service: Nursing Author Type: Registered Nurse Type: Nursing Progress Note Filed: 11/03/2020 7:41 AM Note Text: Nursing Progress Note Patient Name: Whit Armstrong Patient Location: M030 002/M030-02 0730: Pt. Received awake, alert and in stable condition. Systems Planner at bedside. Safety checks completed. Assessment per NPR. PIV sites WNL, capped. No c/o nausea/pain/SOB. Neuro intact to baseline. Lung sounds CTA, satting >93% on RA. Tolerating diet as ordered. Denies thoughts of harming self/others. CRM/CPox in place. Falls/suicide precautions maintained. Updated on POC for the day, understanding voiced, will continue to monitor. This note was completed by: Alice Obregon Normal [facility] SOCIAL WORKon 11-03-2020 SOCIAL WORK HNO ID: [id number] Author: LUKAS Spencer Service: Social Work Author Type: Financial Services Education Consultant Type: Social Work Filed: 11/03/2020 2:14 PM Note Text: Per chart review, pt is medically cleared. SW contacted Psych Intake, pt is already on their wait list for [place]. Intake informed SW that there are no discharges planned for today. If a bed becomes available after hours, please call [facility] at [phone] to schedule transportation. ANTONIO Aponte Cell/Pager: [phone] Normal [facility] Acetaminophenon 11-02-2020 Acetaminophen [Mass/Vol] ug/mL Low 10-30 [facility] Comment on above: Result Comment: Toxi c > 150 ug/mL 4 hours post ingestion The Mic Klein nomogram can be used to estimate the probability of hepatotoxicity via the relationship of plasma acetaminophen concentration to the post ingestion interval. (Alvarez. Pediatrics. 1975. 55:871 to 876 and Mic et al. Arch Blemish Remover Med. 1981. 141:380 to 385). Reference ranges and high/low indicator flags are provided as general guidelines only. The treating physician must determine appropriate target levels/dosing based on the specific clinical situation. Performed By: #### A LCO, SALI, CMP, ACETM, HCGED ####[facility] [address] [place] [phone] Beta HCG Quant, EDon 021 Beta HCG Quant, ED <0.6 Normal <5.0 [facility] Comment on above: Result Comment: NEGA TIVE Performed By: #### A LCO, SALI, CMP, ACETM, HCGED ####[facility] [address] [place] [phone] CASE MGT INIT ASSESon 2020 CASE MGT INIT ASSES HNO ID: [id number] Author: Lucina Roman RN Service: Case Management [...] days? Advance Directive: Current Advance Directive: None Engineering Technology Instructor Attempted to Assist with AD Completion: Yes Action: Other: See Comment (Patient is a minor) Health Literacy Baseline Mental Status SOCIAL: Primary Contact: Extended Emergency Contact Information Primary Emergency Contact: Nliesh Armstrong Address: [address] [place] [phone] [facility] Mobile Relation: Father Secondary Emergency Contact: Dominique Armstrong Address: [address] [place] [phone] [facility] Mobile Relation: Mother This patient has been screened for Care Management Transitional Planning Services. At this time, it does not appear this patient will require transition planning services. Should this change, and the patient require transition planning services during this admission, please call [phone]. Lucina Roman RN November 02, 2020 2:42 PM Normal [facility] CBCon 11-02-2020 Erythrocyte distribution width (RBC) [Ratio] 13.0 % Normal 12.3-14.6 [facility] Comment on above: Performed By: #### A LCO, SALI, CMP, ACETM, HCGED ####[place] [address] Hematocrit (Bld) [Volume fraction] 43.5 % Normal 33.4-46.0 [facility] Comment on above: Performed By: #### A LCO, SALI, CMP, ACETM, HCGED ####[place] [address] Hemoglobin (Bld) [Mass/Vol] 15.0 g/dL Normal 10.8-15.5 [facility] Comment on above: Performed By: #### A LCO, SALI, CMP, ACETM, HCGED ####[place] [address] MCH 30.5 pG High 24.8-30.2 [facility] Comment on above: Performed By: #### A LCO, SALI, CMP, ACETM, HCGED ####[place] [address] MCHC (RBC) [Mass/Vol] 34.5 g/dL Normal 31.5-34.8 [facility] Comment on above: Performed By: #### A LCO, SALI, CMP, ACETM, HCGED ####[place] [address] MCV (RBC) [Entitic vol] 88.6 fL Normal 76.7-90.6 [facility] Comment on above: Performed By: #### A LCO, SALI, CMP, ACETM, HCGED ####[place] [address] Platelet mean volume (Bld) [Entitic vol] 8.5 fL Low 9.6-11.8 [facility] Comment on above: Performed By: #### A LCO, SALI, CMP, ACETM, HCGED ####[place] [address] Platelets (Bld) [#/Vol] 438 10*3/uL High 150-400 [facility] Comment on above: Performed By: #### A LCO, SALI, CMP, ACETM, HCGED ####[facility] [address] RBC (Bld) [#/Vol] 4.91 10*6/uL Normal 3.93-5.29 [facility] Comment on above: Performed By: #### A LCO, SALI, CMP, ACETM, HCGED ####[facility] [address]160 WBC (Bld) [#/Vol] 7.22 10*3/uL Normal 3.84-9.84 [facility] Comment on above: Performed By: #### A LCO, SALI, CMP, ACETM, HCGED ####[facility] [address] [place], [place] [phone] CONSULTon 11-02-2020 CONSULT HNO ID: [id number] Author: Vicenta Day DO Service: Psychiatry Author [...] to the primary team or caregiver via [employer] electronic records system AND telephone. BIOLOGIC RECOMMENDATIONS: [...] intake notified, please call them directly at [phone] once medical clearance is documented to help coordinate transfer Thank you for allowing us to participate in the care of this patient. If you have any questions or concerns please do not hesitate to ask. November 02, 2020 8:45 PM DEMOGRAPHIC ADMISSION DATA Whit Armstrong is a 14 year old female [id number] Referral source: PICU Primary team physician: Dr. [...] improved on current regimen, was participating in [facility] IOP, and was continued on citalopram 10 [...] suicide attempt, however she was admitted to [facility] 08/2020 for suicidal ideation. Whit has a [...] shaking, sweating (more content not included)... Normal [facility] Comp Metabolic Panelon 11-02 Albumin [Mass/Vol] 4.9 g/dL Normal 3.8-5.4 [facility] Comment on above: Result Comment: Refe rence ranges were not locally established for this patient's age group. The normal values are based on the following source: Albumin (Gen. 2) (package insert v 10.0 [place]an). [facility], [place], [place], July 2014. Performed By: #### A LCO, SALI, CMP, ACETM, HCGED ####[facility] [address] [place], [place] [phone] ALP [Catalytic activity/Vol] 91 U/L Normal 57-254 [facility] Comment on above: Result Comment: [...] #### A LCO, SALI, CMP, ACETM, HCGED ####[facility] [address] [place], [place] [phone] ALT [Catalytic activity/Vol] 36 U/L Normal 7-38 [facility] Comment on above: Result Comment: Tessie camryn removed prior to analysis. Performed By: #### A LCO, SALI, CMP, ACETM, HCGED ####[facility] [address] [place], [place] [phone] Anion gap [Moles/Vol] 13 mmol/L Normal 9-18 [facility] Comment on above: Performed By: #### A LCO, SALI, CMP, ACETM, HCGED ####[address] AST [Catalytic activity/Vol] 27 U/L Normal 13-35 [facility] Comment on above: Result Comment: Tessiemichael cowan removed prior to analysis. Performed By: #### A LCO, SALI, CMP, ACETM, HCGED ####[address]5[address] Bilirubin [Mass/Vol] 0.5 mg/dL Normal 0.2-1.3 [facility] Comment on above: Result Comment: (NOT E) Reference ranges for this patient's age group have not been established. These reference ranges reflect verified or established ranges for the adult population. Interpret these ranges with caution using the clinical context and additional reference resources. Performed By: #### A LCO, SALI, CMP, ACETM, HCGED ####[place] [phone] Calcium [Mass/Vol] 9.7 mg/dL Normal 8.4-10.2 [facility] Comment on above: Result Comment: Refe rence ranges were not locally established for this patient's age group. The normal values are based on the following source: Calcium (Gen. 2) (package insert v3.0 [place]). [facility], [place], [place], March 2013. Performed By: #### A LCO, SALI, CMP, ACETM, HCGED ####[place] [phone] Chloride [Moles/Vol] 103 mmol/L Normal 97-105 [facility] Comment on above: Performed By: #### A LCO, SALI, CMP, ACETM, HCGED ####[facility] [address] [place] [phone] CO2 [Moles/Vol] 23 mmol/L Normal 22-30 [facility] Comment on above: Performed By: #### A LCO, SALI, CMP, ACETM, HCGED ####[facility] [phone] Creatinine [Mass/Vol] 0.58 mg/dL Normal 0.58-0.96 [facility] Comment on above: Performed By: #### A LCO, SALI, CMP, ACETM, HCGED ####[place] [phone] Glucose [Mass/Vol] 98 mg/dL Normal 74-99 [facility] Comment on above: Result Comment: Refe rence ranges for this patient's age group have not been established. These reference ranges reflect verified or established ranges for the adult population. Interpret these ranges with caution using the clinical context and additional reference resources. The [place] Diabetes Association (ADA) provides guidance for cutoff [...] Standards of Medical Care in Diabetes 2016, [place] Diabetes Association. Diabetes Care. 2016.39(Suppl 1). Performed By: #### A LCO, SALI, CMP, ACETM, HCGED ####[facility] [facility] Bdewccxrww6940 [address]721-5160 Potassium [Moles/Vol] 4.6 mmol/L Normal 3.7-5.1 [facility] Comment on above: Performed By: #### A LCO, SALI, CMP, ACETM, HCGED ####[facility] Brotwlelpz2787 [phone] Protein [Mass/Vol] 7.8 g/dL Normal 6.3-8.0 [facility] Comment on above: Result Comment: Refe rence ranges for this patient's age group have not been established. These reference ranges reflect verified or established ranges for the adult population. Interpret these ranges with caution using the clinical context and additional reference resources. Performed By: #### A LCO, SALI, CMP, ACETM, HCGED ####[facility] [address] [place] [address] Sodium [Moles/Vol] 139 mmol/L Normal 136-144 [facility] Comment on above: Performed By: #### A LCO, SALI, CMP, ACETM, HCGED ####[facility] [address] [place] [address] Urea nitrogen [Mass/Vol] 8 mg/dL Normal 5-18 [facility] Comment on above: Result Comment: Refe rence ranges were not locally established for this patient's age group. The normal values are based on the following source: Urea/BUN (package insert v7.0 [place]an). [facility], [place], [place], May 2015. Performed By: #### A LCO, SALI, CMP, ACETM, HCGED ####[facility] [address] [place] [address] ED NOTEon 11-02-2020 ED NOTE HNO ID: [id number] Author: Bradford Reis RN Service: Emergency Medicine Author Type: Registered Nurse Type: ED Notes Filed: 11/02/2020 1:00 PM Note Text: Patient transported to [place] [address] in stable condition in Sinus Tach on monitor. Parents at bedside and aware of events and transfer. Report called to Alice SHEPHERD and to transport team at bedside. Normal [facility] ED NOTE HNO ID: [id number] Author: Bradford Reis RN Service: Emergency Medicine Author Type: Registered Nurse Type: ED Notes Filed: 11/02/2020 12:46 PM Note Text: CCT at bedside and report given to team. Normal [facility] ED NOTE HNO ID: [id number] Author: Bradford Reis RN Service: Emergency Medicine Author Type: Registered Nurse Type: ED Notes Filed: 11/02/2020 12:03 PM Note Text: Admits to Feeling dizzy. Normal [facility] ED NOTE HNO ID: [id number] Author: Bradford Reis RN Service: Emergency Medicine Author Type: Registered Nurse Type: ED Notes Filed: 11/02/2020 11:55 AM Note Text: Parents at bedside and updated. Normal [facility] ED NOTE HNO ID: [id number] Author: Bradford Reis RN Service: Emergency Medicine Author Type: Registered Nurse Type: ED Notes Filed: 11/02/2020 11:46 AM Note Text: Patient arrives to ER for evaluation of a suicide attempt just before arrival. Brought in by [facility] for Drug overdose and wanting to kill herself. Admits to having difficulty in school with poor grades. Has had the Suicidal thoughts for the past three days. Admits she is safe at home and has had an admission to [facility] for Suicidal thoughts. Very cooperative and answers questions appropriately. EKG done. PLAN OF CARE: - Monitor patient's vital signs for changes in condition - Monitor patient for changes in pain - Maintain patient safety and privacy - Provide comfort measures - Call light in place, siderails up, bed in locked and low position Normal [facility] ED PROV NOTEon 11-02-2020 ED PROV NOTE HNO ID: [id number] Author: Marcos Feldman DO Service: Emergency Medicine [...] HCO3 (POC (more content not included)... Normal [facility] Ethanolon 11-02-2020 Ethanol [Mass/Vol] mg/dL Normal <11 [facility] Comment on above: Performed By: #### A LCO, SALI, CMP, ACETM, HCGED ####[facility] [address] [place], [place] [phone] Expedited [id number] 11-03-19 21 SARS-CoV-2 (COVID-19) RNA HAZEL+probe Ql (Unsp spec) UPPER RESPIRATORY TRACT SWAB Normal [facility] SARS-CoV-2 (COVID-19) RNA HAZEL+probe Ql (Unsp spec) Negative for COVID19 (SARS CoV2) by RT-PCR or equivalent method. Normal Negative for COVID19 (SARS CoV2) by RT-PCR or equivalent method. [facility] Comment on above: Result Comment: This test has been authorized by FDA under an Emergency Use Authorization (EUA). HISTORY PHYSICALon HISTORY PHYSICAL HNO ID: [id number] Author: Ricardo Carey MD Service: Pediatric Critical [...] had a recent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 [place], [place] [phone] SARS-CoV-2 (COVID-19) RNA HAZEL+probe Ql (Unsp spec) UPPER RESPIRATORY TRACT SWAB Normal [facility] Comment on above: Performed By: #### E XCVFL ####[facility] [place], [place] [phone] SARS-CoV-2 (COVID-19) RNA HAZEL+probe Ql (Unsp spec) Negative for COVID19 (SARS CoV2) by RT-PCR or equivalent method. Normal Negative for COVID19 (SARS CoV2) by RT-PCR or equivalent method. [facility] Comment on above: Result Comment: This test has been authorized by FDA under an Emergency Use Authorization (EUA). Performed By: #### E XCVFL ####[place] [id number] [place], [place] [phone] Keiko Bill Only (EXCVFL)on Keiko Bill Only (EXCVFL) Billed for services performed Normal [facility] Comment on above: Performed By: #### E XCVFL ####[place] [id number] [place], [place] [phone] Lipaseon 09-06-2020 Lipase [Catalytic activity/Vol] 20 U/L Normal 16-61 [facility] Magnesiumon 09-06-2020 Magnesium [Mass/Vol] 2.0 mg/dL Normal 1.7-2.3 [facility] NT Pro BNPon 09-06-2020 PRO B Natr Peptide <50 Normal <125 [facility] Protimeon 09-06-2020 PT INR 1.0 Normal 0.9-1.3 [facility] Comment on above: Result Comment: Natalie min K Antagonist (VKA) Therapeutic Range: INR 2 to 3 (Target INR of 2.5) Note: For patients treated with VKA drugs, such as warfarin, the [place] [employer] 2012 Guideline recommends [...] GH, et al. Chest 2012, 141:7S-47S Juli PARK et al. JACC 2017, 70: 252-289 PT Sec 10.2 sec Normal 9.7-13.0 [facility] Routine RSV (On interfaces 1 102,1120)on 09-06-2020 RSV PCR Negative Normal [facility] Comment on above: Result Comment: This test was developed and its performance characteristics determined by [facility]'s [facility]ology [facility] [place] ([facility]). It has not been cleared or approved by the FDA. [facility] is regulated under CLIA as qualified to perform high complexity testing. This test is used for clinical purposes. It should not be regarded as investigational or for research. Performed By: #### R TRSV ####[facility] [place], [place] [phone] Specimen source Nom (Unsp spec) Nasopharyngeal Swab Normal [facility] Comment on above: Performed By: #### R TRSV ####[place] [id number] [place], [place] [phone] Toxicology Screen,Uron 09-06 Amphetamines, Urine Negative Normal Negative [facility] Comment on above: Result Comment: Cuto ff threshold at 1000 ng/mL. Barbiturates, Urine Negative Normal Negative [facility] Comment on above: Result Comment: Cuto ff threshold at 200 ng/mL. Benzodiazepines, Ur Negative Normal Negative [facility] Comment on above: Result Comment: Cuto ff threshold at 200 ng/mL. Cannabinoids, Urine Negative Normal Negative [facility] Comment on above: Result Comment: Cuto ff threshold at 50 ng/mL. Cocaine, Urine Negative Normal Negative [facility] Comment on above: Result Comment: Cuto ff threshold at 300 ng/mL. Ethanol, Urine <11 Normal <11 [facility] Opiates, Urine Negative Normal Negative [facility] Comment on above: Result Comment: Cuto ff threshold at 300 ng/mL. Oxycodone, Urine Negative Normal Negative [facility] Comment on above: Result Comment: Cuto [...] on the same specimen through Client Services ([phone]) if contacted within 48 hours of initial testing. [1]Substance Abuse and Mental Health Services Administration (2012). Clinical Drug Testing in Primary Care Technical Assistance Publication Series 32. Department of Health and Human Services, [place], p.10. Phencyclidine, Urine Negative Normal Negative [facility] Comment on above: Result Comment: Cuto ff threshold at 25 ng/mL. Troponin Ton 09-06-2020 Troponin T <0.010 Normal 0.000-0.029 [facility] OBSOLETEon 08-06-2020 OBSOLETE Refill (PSYRL) WHIT ARMSTRONG ([id number]) 5 F T Date Time Provider Department [...] Encounter Status:Closed by WILLIAMS BARRAGAN on 08/17/20 [facility] 07-09-2020 CNPN Telephone (PSYCMN) WHIT ARMSTRONG ([id number]) 5 F CHT Date Time Provider Department 07/09/20 NOEMÍ GRIMALDO PSYCMN During your visit today, we recorded the following information about you: Noemí Grimaldo MD 07/09/2020 3:38 PM Signed FMLA completed and given to workers compensation legal secretary to scan and email to dad. Noemí Grimaldo MD 3:37 PM Allergies As of Date: 07/09/2020 (No Known Allergies) Date Reviewed: 04/11/2020 Reviewed by: Jer Veliz MA - Fully Assessed Reason for Visit: Forms [913] Cmt: FMLA dad Prescriptions as of 07/09/2020 Sig: FLUOXETINE [...] Status:Closed by NOEMÍ GRIMALDO MD on 07/09/20 [facility] 06-22-2020 CNPN Telephone (PTS CHR) WHIT ARMSTRONG ([id number]) 5 F CHT Date Time Provider Department 06/22/20 RUTH WADE ([facility]) PTS CHR During your visit today, we recorded the following information about you: Ruth Wade 06/22/2020 4:23 PM Signed Spoke to dad about speech referral from July 2019. Dad said they are interested but they would like to be scheduled at [place]. Gave Dad number [phone] to schedule Allergies As of Date: 06/22/2020 [...] Encounter Status:Closed by RUTH WADE on 06/22/20 [facility] CNTHERAPYon 02-09-2019 CNTHERAPY OT/PT/Speech Visit (PTMCRM) WHIT ARMSTRONG ([id number]) 5 F Date Time Provider Department 02/09/19 4:00 PM AMY SMITH (PT) PTMCRM Date Time Provider Department Center 02/09/2019 4:00 PM [id number], REBECCA *PTMCRM [facility] Reason for Visit: PT Eval [747] Patient Education [91] Visit Diagnosis:Acute pain of right knee [M25.561] Allergies As of Date: 02/09/2019 (No Known Allergies) Date Reviewed: 01/27/2019 Reviewed by: Lorin PrettyRn) JOAO Keller - Fully Assessed Prescriptions as [...] of Care: created on 02/09/19 through 03/25/19 [place] in home exercise program. Patient will decrease [...] to Home;Patient Preference Patient transferring care to: [facility] SUBJECTIVE: Whit Armstrong is a 13 year old female seen today for R knee pain. Patient reports that she went to see her family doctor and they took an x-ray and did not see anything. Patient was wearing a brace from [employer] but she was told that they were [...] for each. Patient education as noted. Billing: [place]: Evaluation - Low Complexity (62062) Therapeutic Exercise (65608): 1:1 time: 20 minutes (1 unit: 8-22 mins) Total time: 40 minutes Amy Smith, PT Normal [facility] PROGRESSon 02-09-2019 PROGRESS HNO ID: [id number] Author: Amy (Pt) Chyna Service: ? Author Type: Physical Therapist Type: Progress Notes Filed: 02/09/2019 4:41 PM Note Text: Episode Visit Count: 1 Therapist That Will Oversee The Plan Of Care: Amy Smith Start of Care Date: 02/09/19 Onset Date: 01/07/19 Patient Identified by Name and Date of : Yes REHABILITATION AND SPORTS THERAPY PHYSICAL THERAPY EVALUATION PLAN OF CARE: Assessment: Whti Armstrong presents with the diagnosis of acute [...] of Care: created on 02/09/19 through 03/25/19 [place] in home exercise program. Patient will decrease [...] to Home;Patient Preference Patient transferring care to: [facility] SUBJECTIVE: Whit Armstrong is a 13 year old female seen today for R knee pain. Patient reports that she went to see her family doctor and they took an x-ray and did not see anything. Patient was wearing a brace from [employer] but she was told that they were [...] for each. Patient education as noted. Billing: [place]: Evaluation - Low Complexity (76958) Therapeutic Exercise (27372): 1:1 time: 20 minutes (1 unit: 8-22 mins) Total time: 40 minutes Amy Smith PT [facility] PROGRESSon 01-21-2019 PROGRESS HNO ID: [id number] Author: LUPE Ruffin (Ct) Service: ? Author Type: Clinical Tank Builder Type: Progress Notes Filed: 01/21/2019 1:16 PM Note Text: NAME:Whit Armstrong DATE: January 21, 2019 CCF#: [id number] Lower Extremity X-Ray(s): Knee, AP / LAT Right and Wt. Bearing COMPLETED TECH ID SIGN: OLI [facility] XR KNEE 2V AP/LAT RTon 01-21 XR KNEE 2V AP/LAT RT * * *Final Report* * * DATE OF EXAM: Jan 21 2019 1:15PM PAZ 5207 - XR KNEE 2V AP/LAT RT / PROCEDURE REASON: [id number] * * * * Physician Interpretation * * * * TECHNIQUE: XR KNEE 2V AP/LAT RT HISTORY: 13 years Female Pain COMPARISON: 10/03/14 radiographs and 10/13/14 MRI RESULT: No acute fracture. The joint spaces and bone alignment are normal. No suprapatellar effusion. No soft tissue swelling. IMPRESSION: Normal radiographs of the right knee. De Ionizer Operator: PSCB Transcribe Date/Time: Jan 21 2019 1:18P Dictated by : HARRIS CAMILO MD This examination was interpreted and the report reviewed and electronically signed by: HARRIS CAMILO MD on Jan 21 2019 1:20PM EST [id number] [facility] Vital Signs Date Time Vital Sign Value Performing Clinician Facility 07-30-2023 11:53-0500 Body height 163.58 cm [place] [facility] Work Phone: [facility] Work Phone: 07-30-2023 11:53-0500 Body mass index (BMI) [Percentile] Per age and sex 95.6 % Rosalba Deanffner [facility] Work Phone: [facility] Work Phone: 07-30-2023 11:53-0500 Body mass index (BMI) [Ratio] 30.8 kg/m2 Rosalbarian Deanffner [facility] Work Phone: [facility] Work Phone: 07-30-2023 11:53-0500 Body surface area Derived from formula 1.9 m2 Rosalbarian Deanffner [facility] Work Phone: [facility] Work Phone: 07-30-2023 11:53-0500 Body temperature 96.4 [degF] [place] [employer] Work Phone: [facility] Work Phone: 07-30-2023 11:53-0500 Body weight 82.37 kg [place] [facility] [facility] Work Phone: [facility] Work Phone: 07-30-2023 11:53-0500 Diastolic blood pressure 75 mm[Hg] [place] [employer] [facility] Work Phone: [facility] Work Phone: 07-30-2023 11:53-0500 Heart rate 82 /min [place] [employer] Work Phone: [facility] Work Phone: 07-30-2023 11:53-0500 Inhaled oxygen concentration 21 % [place] [employer] Work Phone: [facility] Work Phone: 07-30-2023 11:53-0500 Inhaled oxygen flow rate 0 L/min [place] [employer] Work Phone: [facility] Work Phone: 07-30-2023 11:53-0500 Respiratory rate 18 /min [place] [employer] Work Phone: [facility] Work Phone: 07-30-2023 11:53-0500 SaO2% (BldA) [Mass fraction] 99 % [place] [employer] Work Phone: [facility] Work Phone: 07-30-2023 11:53-0500 Systolic blood pressure 119 mm[Hg] [place] [employer] Work Phone: [facility] Work Phone: 05-29-2023 22:30-0500 Body height 162.56 cm Indy Celeste Other [facility] 05-29-2023 22:30-0500 Body height 163 cm Indy Celeste Other [facility] 05-29-2023 22:30-0500 Body mass index (BMI) [Ratio] 30.4 kg/m2 Indy Celeste Other [facility] 05-29-2023 22:30-0500 Body temperature 96.2 [degF] Indy [facility] Other [facility] 05-29-2023 22:30-0500 Body weight 80.47 kg Indy Celeste Other [facility] 05-29-2023 22:30-0500 Body weight 80 kg Indy Celeste Other [facility] 05-29-2023 22:30-0500 Heart rate 99 /min Indy Celeste Other [facility] 04-30-2023 13:08-0500 Body height 164.47 cm [place] [facility] Work Phone: [facility] Work Phone: 04-30-2023 13:08-0500 Body mass index (BMI) [Percentile] Per age and sex 94 % [place] [facility] Work Phone: [facility] Work Phone: 04-30-2023 13:08-0500 Body mass index (BMI) [Ratio] 29.3 kg/m2 [place] [facility] Work Phone: [facility] Work Phone: 04-30-2023 13:08-0500 Body surface area Derived from formula 1.9 m2 [place] [facility] Work Phone: [facility] Work Phone: 04-30-2023 13:08-0500 Body temperature 97.4 [degF] [place] [employer] Work Phone: [facility] Work Phone: 04-30-2023 13:08-0500 Body weight 79.38 kg [place] [employer] Work Phone: [facility] Work Phone: 04-30-2023 13:08-0500 Diastolic blood pressure 69 mm[Hg] [place] [employer] Work Phone: [facility] Work Phone: 04-30-2023 13:08-0500 Heart rate 96 /min [place] [employer] Work Phone: [facility] Work Phone: 04-30-2023 13:08-0500 Heart Rate Rhythm 1 1 [place] [employer] Work Phone: [facility] Work Phone: 04-30-2023 13:08-0500 Inhaled oxygen concentration 21 % [place] [employer] Work Phone: [facility] Work Phone: 04-30-2023 13:08-0500 Inhaled oxygen flow rate 0 L/min [place] [employer] Work Phone: [facility] Work Phone: 04-30-2023 13:08-0500 Respiratory rate 18 /min [place] [employer] Work Phone: [facility] Work Phone: 04-30-2023 13:08-0500 SaO2% (BldA) [Mass fraction] 99 % [place] [employer] Work Phone: [facility] Work Phone: 04-30-2023 13:08-0500 Systolic blood pressure 113 mm[Hg] [place] [facility] Work Phone: [facility] Work Phone: 12-11-2022 23:00-0400 Body height 165.1 cm Dameka Maxx Other [facility] 12-11-2022 23:00-0400 Body height 165 cm Dameka Maxx Other [facility] 12-11-2022 23:00-0400 Body mass index (BMI) [Percentile] 27.6 % Dameka Maxx Other [facility] 12-11-2022 23:00-0400 Body weight 75.3 kg Dameka Maxx Other [facility] 12-11-2022 23:00-0400 Body weight 75 kg Dameka Maxx Other [facility] 12-11-2022 23:00-0400 Heart rate 73 /min Dameka Maxx Other [facility] 12-11-2022 23:00-0400 Respiratory rate 16 /min Dameka Maxx Other [facility] 07-04-2022 05:36-0500 Diastolic blood pressure 80 mm[Hg] Paola Lopez MD Work Phone: [employer] 07-04-2022 05:36-0500 Heart rate 82 /min Paola Lopez MD Work Phone: [employer] 07-04-2022 05:36-0500 Respiratory rate 16 /min Paola Lopez MD Work Phone: [employer] 07-04-2022 05:36-0500 SaO2% (BldA) [Mass fraction] 97 % Paola Lopez MD Work Phone: [facility] 07-04-2022 05:36-0500 Systolic blood pressure 140 mm[Hg] Paola Lopez MD Work Phone: [facility] 07-04-2022 00:41-0500 Body height 152.4 cm Paola Lopez MD Work Phone: [facility] 07-04-2022 00:41-0500 Body mass index (BMI) [Percentile] Per age and sex 98.68 % Paola Lopez MD Work Phone: [facility] 07-04-2022 00:41-0500 Body mass index (BMI) [Ratio] 36.91 kg/m2 Paola Lopez MD Work Phone: [facility] 07-04-2022 00:41-0500 Body weight 85.73 kg Paola Lopez MD Work Phone: [facility] 07-04-2022 00:40-0500 Body temperature 98.01 [degF] Paola Lopez MD Work Phone: [facility] 01-04-2022 23:07-0400 Body weight 89.8 kg HANANE OLSEN [facility] 01-03-2022 22:52-0400 Diastolic blood pressure 75 mm[Hg] HANANE OLSEN [facility] 01-03-2022 22:52-0400 Heart rate 110 /min HANANE OLSEN [facility] 01-03-2022 22:52-0400 Respiratory rate 14 /min HANANE OLSEN [facility] 01-03-2022 22:52-0400 Systolic blood pressure 141 mm[Hg] HANANE OLSEN [facility] 10-22-2021 22:45-0400 Heart rate 85 /min Don Hamilton MD Work Phone: [facility] 10-22-2021 22:45-0400 Respiratory rate 28 /min Don Hamilton MD Work Phone: [facility] 10-22-2021 22:45-0400 SaO2% (BldA) [Mass fraction] 98 % Don Hamilton MD Work Phone: [facility] 10-22-2021 20:26-0400 Body temperature 98.1 [degF] Don Hamilton MD Work Phone: [facility] 10-22-2021 20:26-0400 Body weight 90 kg Don Hamilton MD Work Phone: [facility] 10-22-2021 20:26-0400 Diastolic blood pressure 78 mm[Hg] Don Hamilton MD Work Phone: [facility] 10-22-2021 20:26-0400 Systolic blood pressure 132 mm[Hg] Don Hamilton MD Work Phone: [facility] Encounters Encounter Date Encounter Type Care Provider Facility Start: 12-21-2023 End: 12-21-2023 Emergency department patient visit NO PCP NO PCP [facility] Start: 12-07-2023 End: 12-08-2023 Emergency department patient visit SHARLENE SLAUGHTER [facility] Start: 12-02-2023 End: 06-08-2024 Unlisted evaluation and management service Indy Luis Phone: [facility] Start: 11-04-2023 End: 11-04-2023 ambulatory EUGENE FELDMAN [facility] Start: 10-22-2023 End: 10-23-2023 Emergency department patient visit [facility] Start: 10-22-2023 End: 10-23-2023 Emergency department patient visit [facility] Start: 10-22-2023 End: 10-23-2023 Emergency department patient visit SHARLENE VASQUEZ [facility] Start: 10-22-2023 End: 10-23-2023 Emergency department patient visit SHARLENE PARK [facility] Start: 10-22-2023 End: 10-22-2023 Emergency department patient visit SHARLENE PARK [facility] Start: 10-22-2023 End: 10-23-2023 Emergency department patient visit SHARLENE PARK [facility] Start: 07-30-2023 End: 07-30-2023 FQHC visit, estab pt Leonor Monae 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 Work Phone: [facility] Work Phone: Start: 04-30-2023 End: 04-30-2023 FQHC visit new patient Rosalba Deanedie MCINTOSH Work Phone: [facility] Work Phone: Start: 09-15-2022 Unlisted evaluation and management service Radha Lilly Other [facility] Start: 09-01-2022 Letter encounter Ten Gross MD Work Phone: [facility] Start: 08-08-2022 Unlisted evaluation and management service Radha Lilly Other [facility] Start: 07-30-2022 ambulatory ALICE BRUSH Facility: [facility] Start: 07-08-2022 End: 07-09-2022 ambulatory SUNSHINE KUMARI [facility] Start: 07-08-2022 End: 07-08-2022 Subsequent hospital visit by physician Sunshine WHITNEY Work Phone: [facility] Comment on above: Arrived Canceled (Organizati on Initiated - Scheduling Error) Start: 07-04-2022 End: 07-04-2022 Emergency department patient visit PROVIDER NOT IN SYSTEM Facility:[facility] Start: 07-04-2022 End: 07-04-2022 Emergency department patient visit Paola Lopez MD Work Phone: [facility] Start: 06-17-2022 ambulatory [facility] Facility: [facility] Start: 06-12-2022 ambulatory [facility] Facility: [facility] Start: 05-29-2022 ambulatory [facility] Facility: [facility] Start: 05-09-2022 ambulatory [facility] Facility: [facility] Start: 05-06-2022 ambulatory [facility] Facility: [facility] Start: 05-01-2022 ambulatory [facility] Facility: [facility] Start: 04-24-2022 End: 04-25-2022 ambulatory MIRIAM CAMILO [facility] Start: 04-23-2022 End: 04-24-2022 ambulatory BERNIE GRAY ALVARENGA [facility] Start: 04-23-2022 End: 04-23-2022 Subsequent hospital visit by physician Bernie Alvarenga MD Work Phone: [facility] Comment on above: Arrived Start: 04-22-2022 ambulatory PROVIDER NOT IN SYSTEM Facility:[facility] Start: 04-17-2022 ambulatory PROVIDER NOT IN SYSTEM Facility:[facility] Start: 04-16-2022 End: 04-17-2022 ambulatory [facility] Start: 04-16-2022 End: 04-16-2022 Subsequent hospital visit by physician Bonifacio Burns MD Work Phone: [facility] Start: 04-16-2022 End: 04-16-2022 ambulatory [facility] Start: 04-04-2022 ambulatory [facility] Facility: [facility] Start: 04-04-2022 ambulatory LORRAINE Rm lity:[facility] Start: 03-28-2022 ambulatory Facility:[facility] Start: 03-27-2022 ambulatory [facility] Start: 03-26-2022 End: 03-31-2022 ambulatory [facility] Start: 03-26-2022 End: 03-31-2022 Patient encounter procedure DOMINIK BUTTO [facility] Start: 03-10-2022 End: 03-11-2022 ambulatory [facility] Start: 03-07-2022 ambulatory MIRIAM [facility] Start: 03-04-2022 Letter encounter Ten Gross MD Work Phone: [facility] Start: 02-24-2022 End: 02-24-2022 ambulatory [facility] Start: 02-04-2022 ambulatory DOMINIK [facility] Start: 02-02-2022 End: 02-28-2022 Patient encounter procedure DOMINIK NRO [facility] Start: 01-03-2022 End: 01-04-2022 ambulatory HANANE OLSEN [facility] Start: 01-03-2022 End: 01-03-2022 Emergency department patient visit HANANE OLSEN [facility] Work Phone: Start: 01-03-2022 End: 01-03-2022 Patient encounter procedure HANANE OLSEN [facility] Start: 11-14-2021 ambulatory CAPRICE [facility] Start: 11-14-2021 End: 11-28-2021 Patient encounter procedure CAPRICE NRO [facility] Start: 10-22-2021 End: 10-23-2021 Emergency department patient visit Don Hamilton MD Work Phone: [facility] Comment on above: Chest pain made wors e by breathing (Primary Dx) Start: 08-06-2021 ambulatory UNKNOWN PROVIDER Facili ty:[facility] Start: 07-19-2021 End: 07-19-2021 ambulatory UNKNOWN PROVIDER Facility:[facility] Start: 07-10-2021 End: 07-12-2021 ambulatory UNKNOWN PROVIDER Facility:[facility] Start: 06-28-2021 End: 06-28-2021 ambulatory [facility] PROVIDER [facility] Start: 06-11-2021 End: 06-11-2021 ambulatory UNKNOWN PROVIDER Facility:[facility] Start: 03-20-2021 ambulatory UNKNOWN PROVIDER Facili ty:[facility] Start: 11-25-2016 Ambulatory GEO Michael (CN P) [facility] Procedures Date Procedure Procedure Detail Performing Clinician Start: 07-30-2023 Asthma Control Test/Baseline Evaluation Rosalba Deanffner BEEF SKINNER Work Phone: Start: 07-30-2023 Body mass index documented Rosalba Lake BEEF SKINNER Work Phone: Start: 07-30-2023 Psychotherapy w/patient 30 minutes Leonor ALVAREZ Work Phone: Start: 04-30-2023 Acetominophen (Tylenol) Oral tablet each Rosalbarian Deanffner BEEF SKINNER Work Phone: Start: 04-30-2023 Hemoglobin glycosylated a1c Rosalba Haiderner BEEF SKINNER Work Phone: Start: 04-30-2023 Most recent hemoglobin a1c level < 7.0% Rosalba Haiderner BEEF SKINNER Work Phone: Start: 04-30-2023 Psychotherapy w/patient 30 minutes Leonor Monae SURVEY CAD TECHNICIAN Work Phone: Start: 04-30-2023 Tonsillectomy and adenoidectomy Rosalba Deanffner BEEF SKINNER Work Phone: Start: 07-08-2022 Radiologic exam knee complete 4/more views Sunshine WHITNEY Work Phone: Start: 04-23-2022 Radiologic exam abdomen 1 view Bernie Alvarenga MD Work Phone: Start: 04-23-2022 C-reactive protein Bernie Alvarenga MD Work Phone: Start: 04-23-2022 Comprehensive metabolic panel Bernie Alvarenga MD Work Phone: Start: 04-16-2022 Radiologic examination neck soft tissue Bonifacio Burns MD Work Phone: Start: 03-28-2022 Throat culture CAMILO NRO Start: 10-22-2021 Radiologic exam chest 2 views Tisha E Decoy DO Work Phone (unformatted): [phone] Start: 10-22-2021 DRUGS OF ABUSE WITH THC, URINE-AKRON Tisha E Decoy DO Work Phone (unformatted): [phone] Start: 10-22-2021 HCG, URINE Tisha E Decoy DO Work Phone (unformatted): [phone] Start: 11-05-2020 Lipid 1996 panel - Serum or Plasma Ten Gross MD Work Phone: Plan of Treatment Date Care Activity Detail Author Start: 07-13-2027 Tetanus,Diptheria,Pertuss is Vaccine (7 - Td or Tdap) Tetanus,Diptheria,Pertu ssis Vaccine (7 - Td or Tdap) [facility] Start: 08-06-2023 End: 08-07-2023 [place] [facility] progress note ongoing v5 [facility] Start: [...] to health and not anxiety [facility] Start: 07-30-2023 End: 07-30-2023 Patient education based on identified need [facility] Start: 05-30-2023 XR Knee 3 Views ([id number]) [facility] Start: 05-29-2023 End: 05-29-2023 [facility] psychiatric progress note ongoing v5 [facility] Start: 05-01-2023 Acetaminophen (Tylenol) Oral Tablet Each [facility] Start: 04-30-2023 End: 04-30-2023 Patient education based on identified need [facility] Start: 04-07-2023 End: 04-07-2023 [facility] Start: 03-31-2023 End: 03-31-2023 [place] [facility] progress note ongoing v5 [facility] Start: 01-13-2023 End: 01-13-2023 [facility] psychiatric progress note ongoing v5 [facility] Start: 11-05-2022 Diabetes Screening Diabetes Screening [facility] Start: 11-05-2022 Lipid panel Lipid Screening [facility] Start: 08-08-2022 End: 08-08-2022 Patient encounter procedure 08/08/2022 Procedure Visit [place] [address] [facility]uled [facility] Comment on above: Scheduled Start: 05-22-2022 End: 05-22-2022 Patient encounter procedure 05/22/2022 Procedure Visit [place] [address] [facility] Comment on above: Scheduled Start: 04-23-2022 End: 04-23-2022 Patient encounter procedure 04/23/2022 Office Visit Gastroenterology [place] [address] Scheduled Gastroenterology - [facility] Comment on above: Scheduled Start: 03-20-2022 Well child visit, 14 years WELL CARDIAC REHAB NURSE (3-17 YRS,YEARLY) [facility] Start: 03-01-2022 Influenza vaccination Influenza Vaccine (#1) [facility] Start: 02-21-2022 Venipuncture [facility] Start: 02-21-2022 [facility] Start: 02-02-2022 [facility] Start: 01-30-2022 FLU (Season Ended) FLU (Season Ended) [facility] Start: 01-30-2022 Influenza vaccination INFLUENZA VACCINE (#1) [facility] Start: 01-03-2022 CT Abdomen and Pelvis W contrast IV [facility] Start: 01-03-2022 Choriogonadotropin ( test) [Presence] in Urine [facility] Start: 01-03-2022 Urinalysis dipstick W Reflex Culture panel - Urine [facility] Start: 2021 MenB (1 of 2 - MenB 2-Dose Series) MenB (1 of 2 - MenB 2-Dose Series) [facility] Start: 2021 Meningococcal B (Bexsero,OMV) Vaccine (Optional,16-23 years) (#1) Meningococcal B (Bexsero,OMV) Vaccine (Optional,16-23 years) (#1) [facility] Start: 2021 Meningococcal Conjugate (MCV4,ACWY) Vaccine (2 - 2-dose series) Meningococcal Conjugate (MCV4,ACWY) Vaccine (2 - 2-dose series) [facility] Start: 2021 Meningococcal conjugate vaccination MCV4 VACCINE (1 - 2-dose series) [facility] Start: 2021 MENINGOCOCCAL VACCINE (1 - 2-dose series) MENINGOCOCCAL VACCINE (1 - 2-dose series) [facility] Start: 11-14-2021 [facility] Start: 11-14-2021 Venipuncture [facility] Start: 11-14-2021 [facility] Start: 01-15-2021 COVID-19 Vaccine (3 - Booster for Pfizer series) COVID-19 Vaccine (3 - Booster for Pfizer series) [facility] Start: 2020 Hearing Screening Hearing Screening [facility] Start: 2020 HIV screening [facility] Start: 2020 Screening for Chlamydia trachomatis STI Screening (Age 15-17) [facility] Start: 2020 Vision Screening Vision Screening [facility] Start: 2016 HPV (1 - 2-dose series) HPV (1 - 2-dose series) [facility] Start: 2016 HPV VACCINES (1 - 2-dose series) HPV VACCINES (1 - 2-dose series) [facility] Start: 2016 MenACWY (1 - 2-dose series) MenACWY (1 - 2-dose series) [facility] Start: 2016 Vaccination for human papillomavirus HPV VACCINE ADOL (1 - 2-dose series) [facility] Start: 11-28-2015 Alanine aminotransferase measurement ALT/AST [facility] Start: 2012 DTAP/TDAP/TD (1 - Tdap) DTAP/TDAP/TD (1 - Tdap) [facility] Start: 2012 DTAP/TDAP/TD VACCINE (1 - Tdap) DTAP/TDAP/TD VACCINE (1 - Tdap) [facility] Start: 2012 Tetanus Diphtheria and Pertussis Vaccines (1 - Tdap) Tetanus Diphtheria and Pertussis Vaccines (1 - Tdap) [facility] Start: 2010 COVID-19 (1) COVID-19 (1) [facility] Start: 2008 Well Visit Well Visit [facility] Start: 2006 Hepatitis A (1 of 2 - 2-dose series) Hepatitis A (1 of 2 - 2-dose series) [facility] Start: 2006 Hepatitis A immunization HEP A VACCINE (1 of 2 - 2-dose series) [facility] Start: 2006 HEPATITIS A VACCINES (1 of 2 - 2-dose series) HEPATITIS A VACCINES (1 of 2 - 2-dose series) [facility] Start: 2006 Lovelnd-hwlwr-wcggwfe vaccination MMR VACCINE (1 of 2 - Standard series) [facility] Start: 2006 MMR (1 of 2 - Standard series) MMR (1 of 2 - Standard series) [facility] Start: 2006 MMR VACCINES (1 of 2 - Standard series) MMR VACCINES (1 of 2 - Standard series) [facility] Start: 2006 Varicella (1 of 2 - 2-dose childhood series) Varicella (1 of 2 - 2-dose childhood series) [facility] Start: 2006 Varicella vaccination VARICELLA VACCINE (1 of 2 - 2-dose childhood series) [facility] Start: 2006 VARICELLA VACCINES (1 of 2 - 2-dose childhood series) VARICELLA VACCINES (1 of 2 - 2-dose childhood series) [facility] Start: 05-29-2006 COVID-19 VACCINE (#1) COVID-19 VACCINE (#1) [facility] Start: 05-29-2006 COVID-19 VACCINES (#1) COVID-19 VACCINES (#1) [facility] Start: 01-27-2006 Inactivated poliovirus vaccine (product) IPV VACCINE (1 of 3 - 4-dose series) [facility] Start: 01-27-2006 Polio (1 of 3 - 4-dose series) Polio (1 of 3 - 4-dose series) [facility] Start: 01-27-2006 POLIO VACCINES (1 of 3 - 4-dose series) POLIO VACCINES (1 of 3 - 4-dose series) [facility] Start: 2005 ANNUAL PHYSICAL ANNUAL PHYSICAL [facility] Start: 2005 Hepatitis B (1 of 3 - 3-dose primary series) Hepatitis B (1 of 3 - 3-dose primary series) [facility] Start: 2005 Hepatitis B vaccination HEP B VACCINE (1 of 3 - 3-dose series) [facility] Start: 2005 HEPATITIS B VACCINES (1 of 3 - 3-dose primary series) HEPATITIS B VACCINES (1 of 3 - 3-dose primary series) [facility] Start: 2005 HEPATITIS B VACCINES (1 of 3 - 3-dose series) HEPATITIS B VACCINES (1 of 3 - 3-dose series) [facility] Lab Routine Abdominal pain 04/23/2022 15:30 EST [facility] Work Phone: End: 10-22-2021 Ecg routine ecg w/least 12 lds i&r only [facility] Work Phone (unformatted): [phone] Comment on above: One Time for 1 Occurrences starting 09/30 until 10/22/2021 Immunizations Immunization Date Immunization Notes Care Provider Fa cili 03-06-2023 Ankush orellana BEEF SKINNER Work Phone: [facility] 08-04-2022 meningococcal polysaccharide (groups A, C, Y and W-135) diphtheria toxoid conjugate vaccine (MCV4P) Rosalba Lake BEEF SKINNER Work Phone: [facility] 07-28-2022 meningococcal B vaccine, recombinant, OMV, adjuvanted Rosalba Lake BEEF SKINNER Work Phone: [facility] 03-21-2022 influenza, injectabl e, quadrivalent, preservative free Ten Gross MD Work Phone: [facility] 03-20-2021 influenza, injectabl e, quadrivalent, preservative free Ten Gross MD Work Phone: [facility] 03-20-2021 influenza virus vaccine, unspecified formulation Ten Gross MD Work Phone: [facility] 11-20-2020 1st Dose PFIZER COVID-19 Vaccine Rosalba Lake BEEF SKINNER Work Phone: [facility] 10-27-2020 1st Dose PFIZER COVID-19 Vaccine Rosalba Lake BEEF SKINNER Work Phone: [facility] 04-11-2020 influenza, injectabl e, quadrivalent, contains preservative Ten Gross MD Work Phone: [facility] 04-20-2019 influenza virus vaccine, unspecified formulation Ten Gross MD Work Phone: [facility] 12-21-2017 Human Papillomavirus 9-valent vaccine Ten Gross MD Work Phone: [facility] 07-13-2017 meningococcal polysaccharide (groups A, C, Y and W-135) diphtheria toxoid conjugate vaccine (MCV4P) Ten Gross MD Work Phone: [facility] 07-13-2017 tetanus toxoid, redu skyla diphtheria toxoid, and acellular pertussis vaccine, adsorbed Ten Gross MD Work Phone: [facility] 06-23-2017 Human Papillomavirus 9-valent vaccine Ten Gross MD Work Phone: [facility] 05-21-2015 influenza, injectable,quadrivalent , preservative free, pediatric Ten Gross MD Work Phone: [facility] 01-13-2011 diphtheria, tetanus toxoids and acellular pertussis vaccine Ten Gross MD Work Phone: [facility] 01-13-2011 measles, mumps and rubella virus vaccine Ten Gross MD Work Phone: [facility] 01-13-2011 poliovirus vaccine, inactivated Ten Gross MD Work Phone: [facility] 01-13-2011 varicella virus vaccine Aaliyah Gross MD Work Phone: [facility] 07-27-2008 hepatitis A vaccine, pediatric/adolescent dosage, 2 dose schedule Ten Gross MD Work Phone: [facility] 01-20-2008 hepatitis A vaccine, pediatric/adolescent dosage, 2 dose schedule Ten Gross MD Work Phone: [facility] 10-14-2007 diphtheria, tetanus toxoids and acellular pertussis vaccine, unspecified formulation Ten Gross MD Work Phone: [facility] 10-14-2007 varicella virus vaccine Aaliyah Gross MD Work Phone: [facility] 12-03-2006 haemophilus influenz ae type b vaccine, HbOC conjugate Ten Gross MD Work Phone: [facility] 12-03-2006 measles, mumps and rubella virus vaccine Ten Gross MD Work Phone: [facility] 12-03-2006 pneumococcal conjuga te vaccine, 7 valent Ten Gross MD Work Phone: [facility] 09-03-2006 diphtheria, tetanus toxoids and acellular pertussis vaccine, unspecified formulation Ten Gross MD Work Phone: [facility] 09-03-2006 hepatitis B vaccine, pediatric or pediatric/adolescent dosage Ten Gross MD Work Phone: [facility] 09-03-2006 poliovirus vaccine, inactivated Ten Gross MD Work Phone: [facility] 07-08-2006 influenza, seasonal, injectable Ten Gross MD Work Phone: [facility] 06-03-2006 haemophilus influenz ae type b vaccine, HbOC conjugate Ten Gross MD Work Phone: [facility] 06-03-2006 hepatitis B vaccine, pediatric or pediatric/adolescent dosage Ten Gross MD Work Phone: [facility] 06-03-2006 influenza, seasonal, injectable, preservative free Ten Gross MD Work Phone: [facility] 06-03-2006 pneumococcal conjuga te vaccine, 7 valent Ten Gross MD Work Phone: [facility] 04-01-2006 diphtheria, tetanus toxoids and acellular pertussis vaccine, unspecified formulation Ten Gross MD Work Phone: [facility] 04-01-2006 haemophilus influenz ae type b vaccine, HbOC conjugate Ten Gross MD Work Phone: [facility] 04-01-2006 pneumococcal conjuga te vaccine, 7 valent Ten Gross MD Work Phone: [facility] 04-01-2006 poliovirus vaccine, inactivated Ten Gross MD Work Phone: [facility] 01-27-2006 diphtheria, tetanus toxoids and acellular pertussis vaccine, unspecified formulation Ten Gross MD Work Phone: [facility] 01-27-2006 haemophilus influenz ae type b vaccine, HbOC conjugate Ten Gross MD Work Phone: [facility] 01-27-2006 pneumococcal conjuga te vaccine, 7 valent Ten Gross MD Work Phone: [facility] 01-26-2006 poliovirus vaccine, inactivated Ten Gross MD Work Phone: [facility] 2005 hepatitis B vaccine, pediatric or pediatric/adolescent dosage Ten Gross MD Work Phone: [facility] Payers Date Payer Category Payer Worker's Compensation [id number] Unknown [id number] 2021 [place] [id number] 2021-Present [address] [place] [address] [id number] 2021 Unknown [id number] 2020 Private Health Insurance [id number] 2020 Private Health Insurance [id number] 2020 Unknown [id number] 2020 Unknown [id number] 2005 Unknown [id number] 2005 Unknown [id number] 2005 Unknown [id number] 1978 Unknown [id number] 1978 Unknown [id number] 1978 Unknown [id number] 2.16.840.1.450459.3.579.2. 732 Unknown [id number] 2.16.840.1.401327.3.579.2. 8 Unknown [id number] 2.16.840.1.406114.3.579.2. 124706-01-1900 Unknown [id number] 2.16.840.1.032878.3.579.2. 124706-01-1900 Unknown [id number] 2.16.840.1.393824.3.579.2. 124706-01-1900 Unknown [id number] 2.16.840.1.094341.3.579.2. 8 Unknown [id number] 2.16.840.1.852448.3.579.2. 8 Unknown [id number] 2.16.840.1.632505.3.579.2. 8 Unknown [id number] 2.16.840.1.620978.3.579.2. 1248 Unknown [id number] 2.16.840.1.219907.3.579.2. 8 Unknown [id number] 2.16.840.1.248178.3.579.2. 8 Unknown [id number] 2.16.840.1.214608.3.579.2. 8 Unknown [id number] 2.16.840.1.862850.3.579.2. 1248 Unknown [id number] 2.16.840.1.028942.3.579.2. 1248 06-01-1840 Unknown [id number] 2.16.840.1.062771.3.579.2. 202 06-01-1840 Unknown [id number] 2.16.840.1.649420.3.579.2. 202 06-01-1840 Unknown [id number] 2.16.840.1.350488.3.579.2. 202 06-01-1840 Unknown [id number] 2.16.840.1.717032.3.579.2. 202 06-01-1840 Unknown [id number] 2.16.840.1.148681.3.579.2. 202 06-01-1840 Unknown [id number] 2.16.840.1.624701.3.579.2. 202 06-01-1840 Unknown [id number] 2.16.840.1.999595.3.579.2. 202 06-01-1840 Unknown [id number] 2.16.840.1.966338.3.579.2. 202 06-01-1840 Unknown [id number] 2.16.840.1.930956.3.579.2. 202 06-01-1840 Unknown [id number] 2.16.840.1.418459.3.579.2. 202 06-01-1840 Unknown [id number] 2.16.840.1.125818.3.579.2. 202 06-01-1840 Unknown [id number] 2.16.840.1.844619.3.579.2. 202 06-01-1840 Unknown [id number] 2.16.840.1.763867.3.579.2. 202 06-01-1840 Unknown [id number] 2.16.840.1.553982.3.579.2. 202 Self-pay [id number] 2.16.840.1.662391.3.140.1. 71274.5.4 Unknown [id number] 2.16.840.1.325464.3.579.2. 732 Unknown [id number] 2.16.840.1.478207.3.579.2. 732 Unknown [id number] 2.16.840.1.683232.3.579.2. 732 Unknown [id number] 2.16.840.1.140496.3.579.2. 732 Unknown [id number] 2.16.840.1.435987.3.579.2. 597 Unknown [id number] 2.16.840.1.254094.3.579.2. 597 Unknown [id number] 2.16.840.1.027305.3.579.2. 597 Unknown [id number] 2.16.840.1.602399.3.579.2. 597 Unknown [id number] 2.16.840.1.540412.3.579.2. 1286 Unknown [id number] 2.16.840.1.752517.3.579.2. 1286 Unknown [id number] 2.16.840.1.280445.3.579.2. 1286 Unknown [id number] 2.16.840.1.335143.3.579.2. 1286 Unknown [id number] 2.16.840.1.304237.3.579.2. 1286 Unknown [id number] 2.16.840.1.666969.3.579.2. 1286 Unknown [id number] 2.16.840.1.749276.3.579.2. 1286 Unknown [id number] 2.16.840.1.004181.3.579.2. 1286 Unknown [id number] 2.16.840.1.347709.3.579.2. 1286 Unknown [id number] 2.16.840.1.699512.3.579.2. 1286 Unknown [id number] 2.16.840.1.429543.3.579.2. 1286 Unknown [id number] 2.16.840.1.240499.3.579.2. 1286 Unknown [id number] 2.16.840.1.335605.3.579.2. 1286 Unknown [id number] 2.16.840.1.587427.3.579.2. 1286 Social History Date Type Detail Facility Tobacco smoking status NHIS Tobacco smoking consumption unknown [facility] Start: 2005 Sex Assigned At Not on file [facility] Start: 10-12-2021 End: 07-08-2022 Exposure to SARS-CoV-2 (event) Not sure [facility] Start: 03-20-2021 End: 07-04-2022 Tobacco smoking status NHIS Never smoked tobacco [facility] Start: 03-20-2021 End: 07-04-2022 Tobacco use and exposure Smokeless tobacco non-user [facility] Start: 03-10-2022 History SDOH Financial 5 [facility] Start: 03-10-2022 End: 04-23-2022 History SDOH Food Worry 1 [facility] Start: 03-10-2022 History SDOH Transport Med 2 [facility] Start: 03-10-2022 History SDOH Housing Places Lived 4 [facility] Start: 04-23-2022 End: 07-04-2022 Alcohol intake Lifetime non-drinker (finding) [facility] Start: 04-23-2022 History SDOH Housing Unable to Pay 3 [facility] Start: 2005 Sex Assigned At Female [facility] Assertion Attending school (finding) [facility] Assertion Member of foster family (finding) [facility] Assertion Gender identity finding (finding) [facility] Assertion Finding of sexua l orientation (finding) [facility] Assertion Currently not se xually active (finding) [facility] Assertion Lives with karen ts (finding) [facility] Assertion Problem situatio n relating to social and personal history (finding) [facility] Assertion Ex-smoker (finding) [facility] Start: 08-31-2019 Assertion Quit date 08/31/2019 [facility] Assertion Exposure to poll ution (event) [facility] History of tobacco use Passive smoker [facility] NEGATED: [place] Assertion Exposure to pollution (event) [facility] NEGATED: [place]ed row Assertion Current drinker of alcohol (finding) [facility] NEGATED: High[place]ed row Assertion Finding relating to drug misuse behavior (finding) [facility] NEGATED: Highlighted row Assertion [facility] NEGATED: Highlighted row Assertion Sexually active (finding) [facility] Goals Date Patient Goal Desired Activity /State 01-19-2024 Goal Observation 1-Whit will manage anxiety/depression symptoms and stress in age-appropriate and effective ways, as evidenced by a 3 point increase in overall DLA score per health technical writer and client report and observation.; Goal Established 12/24/2023 from [facility] Treatment Plan - Initial v2 of 01/19/2024 11-16-2023 Goal Observation 08-05-2023 Goal Observation 05-07-2023 Goal Observation 02-05-2023 Goal Observation 11-05-2022 Goal Observation Comment on above: Formatting of this n [...] Oriented to person, time and place (finding) [facility] Work Phone: Clinical Notes 04-03-2020 to 09-18-2024 Note Date & Type Note Facility 09-18-2024 Evaluation note Sun Sep 18 22 :21:15 EDT 2024: No Assessment Information [facility] 09-18-2024 Evaluation note Sun Sep 18 03 :50:47 EDT 2024: No Assessment Information [facility] 09-17-2024 Evaluation note Sat Sep 17 23 :50:18 EDT 2024: No Assessment Information [facility] 09-17-2024 Evaluation note Sat Sep 17 12 :12:27 EDT 2024: No Assessment Information [facility] 09-17-2024 Evaluation note Sat Sep 17 11 :51:44 EDT 2024: No Assessment Information [facility] 09-17-2024 Evaluation note Sat Sep 17 01 :18:35 EDT 2024: No Assessment Information [facility] 09-15-2024 Evaluation note Connie Sep 15 03 :15:29 EDT 2024: No Assessment Information [facility] 09-15-2024 Evaluation note Connie Sep 15 00 :21:35 EDT 2024: No Assessment Information [facility] 09-14-2024 Evaluation note Wed Sep 14 23 :31:00 EDT 2024: No Assessment Information [facility] 09-13-2024 Evaluation note Tue Sep 13 15 :19:45 EDT 2024: No Assessment Information [facility] 09-12-2024 Evaluation note Mon Aug 14 21 :42:11 EDT 2024: No Assessment Information [facility] 09-11-2024 Evaluation note Sun Sep 11 22 :17:17 EDT 2024: No Assessment Information [facility] 09-11-2024 Evaluation note Sun Sep 11 08 :16:56 EDT 2024: No Assessment Information [facility] 09-11-2024 Evaluation note Sun Sep 11 04 :39:51 EDT 2024: No Assessment Information [facility] 09-11-2024 Evaluation note Sun Sep 11 03 :00:59 EDT 2024: No Assessment Information [facility] 09-10-2024 Evaluation note Sat Sep 10 15 :18:14 EDT 2024: No Assessment Information [facility] 09-09-2024 Evaluation note Fri Sep 09 07 :35:05 EDT 2024: No Assessment Information [facility] 09-09-2024 Evaluation note Fri Sep 09 01 :32:52 EDT 2024: No Assessment Information [facility] 09-09-2024 Evaluation note Fri Sep 09 00 :05:54 EDT 2024: No Assessment Information [facility] 09-07-2024 Evaluation note Wed Sep 07 04 :49:02 EDT 2024: No Assessment Information [facility] 09-07-2024 Evaluation note ThuSep 07 01 :58:06 EDT 2024: No Assessment Information [facility] 09-07-2024 Evaluation note ThuSep 07 01 :32:04 EDT 2024: No Assessment Information [facility] 09-06-2024 Evaluation note ThuSep 06 23 :47:22 EDT 2024: No Assessment Information [facility] 09-06-2024 Evaluation note ThuSep 06 19 :38:22 EDT 2024: No Assessment Information [facility] 08-30-2024 Evaluation note ThuAug 30 05 :33:34 EDT 2024: No Assessment Information [facility] 08-30-2024 Evaluation note ThuAug 30 01 :48:22 EDT 2024: No Assessment Information [facility] 08-29-2024 Evaluation note Mon Mar 31 05 :30:43 EDT 2024: No Assessment Information [facility] 08-29-2024 Evaluation note Mon Mar 31 04 :43:46 EDT 2024: No Assessment Information [facility] 08-29-2024 Evaluation note Mon Mar 31 03 :59:27 EDT 2024: No Assessment Information [facility] 08-29-2024 Evaluation note Mon Mar 31 02 :57:38 EDT 2024: No Assessment Information [facility] 08-28-2024 Evaluation note Sun Mar 30 21 :20:42 EDT 2024: No Assessment Information [facility] 08-28-2024 Evaluation note Sun Mar 30 18 :18:12 EDT 2024: No Assessment Information [facility] 08-28-2024 Evaluation note Sun Mar 30 16 :46:50 EDT 2024: No Assessment Information [facility] 08-28-2024 Evaluation note Sun Mar 30 14 :14:55 EDT 2024: No Assessment Information [facility] 08-28-2024 Evaluation note Sun Mar 30 10 :59:36 EDT 2024: No Assessment Information [facility] 08-28-2024 Evaluation note Sun Mar 30 10 :05:31 EDT 2024: No Assessment Information [facility] 08-28-2024 Evaluation note Sun Mar 30 09 :22:55 EDT 2024: No Assessment Information [facility] 08-28-2024 Evaluation note Sun Mar 30 03 :18:35 EDT 2024: No Assessment Information [facility] 08-27-2024 Evaluation note Sat Mar 29 23 :03:42 EDT 2024: No Assessment Information [facility] 08-27-2024 Evaluation note Sat Mar 29 21 :06:03 EDT 2024: No Assessment Information [facility] 08-27-2024 Evaluation note Sat Mar 29 18 :06:06 EDT 2024: No Assessment Information [facility] 08-27-2024 Evaluation note Sat Mar 29 11 :44:55 EDT 2024: No Assessment Information [facility] 08-27-2024 Evaluation note Sat Mar 29 11 :17:40 EDT 2024: No Assessment Information [facility] 08-27-2024 Evaluation note Sat Mar 29 09 :19:54 EDT 2024: No Assessment Information [facility] 08-27-2024 Evaluation note Sat Mar 29 08 :02:19 EDT 2024: No Assessment Information [facility] 08-27-2024 Evaluation note Sat Mar 29 03 :28:39 EDT 2024: No Assessment Information [facility] 08-26-2024 Evaluation note Fri Mar 28 20 :25:24 EDT 2024: No Assessment Information [facility] 08-26-2024 Evaluation note Fri Mar 28 18 :54:47 EDT 2024: No Assessment Information [facility] 08-26-2024 Evaluation note Fri Mar 28 06 :52:44 EDT 2024: No Assessment Information [facility] 08-25-2024 Evaluation note Connie Mar 27 19 :57:37 EDT 2024: No Assessment Information [facility] 08-22-2024 Evaluation note Mon Mar 24 20 :00:42 EDT 2024: No Assessment Information [facility] 08-22-2024 Evaluation note Mon Mar 24 03 :13:32 EDT 2024: No Assessment Information [facility] 08-22-2024 Evaluation note Mon Mar 24 02 :47:01 EDT 2024: No Assessment Information [facility] 08-20-2024 Evaluation note Sat Mar 22 20 :25:07 EDT 2024: No Assessment Information [facility] 08-20-2024 Evaluation note Sat Mar 22 16 :36:43 EDT 2024: No Assessment Information [facility] 08-19-2024 Evaluation note Fri Mar 21 21 :44:56 EDT 2024: No Assessment Information [facility] 08-19-2024 Evaluation note Fri Aug 19 20 :57:40 EDT 2024: No Assessment Information [facility] 08-18-2024 Evaluation note Connie Aug 18 18 :43:51 EDT 2024: No Assessment Information [facility] 08-18-2024 Evaluation note ThuAug 18 06 :53:53 EDT 2024: No Assessment Information [facility] 08-17-2024 Evaluation note ThuAug 17 19 :57:09 EDT 2024: No Assessment Information [facility] 06-05-2024 Evaluation note ThuJun 05 11 :24:06 EST 2024: No Assessment Information [facility] 02-25-2024 Evaluation note Connie Feb 24 16 :04:46 EDT 2023: No Assessment [...] No Assessment Information [facility] 01-15-2024 Evaluation note Fri Jan 14 01 :37:49 EDT 2023: No Assessment Information [facility] 01-14-2024 Evaluation note Connie Jan 13 02 :46:26 EDT 2023: No Assessment [...] etiology Established Patient with Leonor N. Dov SURVEY CAD TECHNICIAN 07/30/2023 Last Documented On 4 8:32AM ; [facility] Assessment of BMI Percentile => 95% for age Z68.54 Medical Established Patient with Rosalba Lake BEEF SKINNER 07/30/2023 Last Documented On 4 3:16PM ; [facility] Anxiety disorder of unknown (axis III) etiology Established Patient with Leonor N. Dov SURVEY CAD TECHNICIAN 04/30/2023 Last Documented On 3 2:45PM ; [facility] Chronic major depression Established Patient with Leonor N. Dov SURVEY CAD TECHNICIAN 04/30/2023 Last Documented On 3 2:45PM ; [facility] [Pain in right knee] arthral jahaira of the right knee/patella/tibia/fibula Medical New Patient with Rosalba [place] BEEF SKINNER 04/30/2023 Last Documented On 3 7:47AM ; [facility] Assessment of BMI Percentile = 85% to < 95% for age Z68.53 Medical New Patient with Rosalba [place] BEEF SKINNER 04/30/2023 Last Documented On 3 7:47AM ; [facility] At low risk for dental caries Medical Ne w Patient with Rosalba [place] BEEF SKINNER 04/30/2023 Last Documented On 3 7:47AM ; [facility] Screening for diabetes mellitus Medical New Patient with Rosalba [place] BEEF SKINNER 04/30/2023 Last Documented On 3 7:47AM ; [facility] Work Phone: 1(930) 862-947002-29-2024 Evaluation note Includes: Assessments for all patient encounters Findings Encounter Date Mood disorder of unknown (ax is III) etiology Established Patient with Leonor N. Dov SURVEY CAD TECHNICIAN 07/30/2023 Last Documented On 4 8:32AM ; [facility] [Sleep apnea, unspecified] s leep hypopnea Medical Established Patient with Rosalba [place] BEEF SKINNER 07/30/2023 Last Documented On 4 8:41AM ; [facility] Assessment of BMI Percentile => 95% for age Z68.54 Medical Established Patient with Ros[place] BEEF SKINNER 07/30/2023 Last Documented On 4 8:41AM ; [facility] Anxiety disorder of unknown (axis III) etiology Established Patient with Leonor N. Dov SURVEY CAD TECHNICIAN 04/30/2023 Last Documented On 3 2:45PM ; [facility] Chronic major depression Established Patient with Leonor N. Dov SURVEY CAD TECHNICIAN 04/30/2023 Last Documented On 3 2:45PM ; [facility] [Pain in right knee] arthral jahaira of the right knee/patella/tibia/fibula Medical New Patient with Ros[place]ba [place] BEEF SKINNER 04/30/2023 Last Documented On 3 7:47AM ; [facility] Assessment of BMI Percentile = 85% to < 95% for age Z68.53 Medical New Patient with Ros[place]ba [place] BEEF SKINNER 04/30/2023 Last Documented On 3 7:47AM ; [facility] At low risk for dental caries Medical Ne w Patient with [place] BEEF SKINNER 04/30/2023 Last Documented On 3 7:47AM ; [facility] Screening for diabetes mellitus Medical New Patient with Ros[place]ba [place] BEEF SKINNER 04/30/2023 Last Documented On 3 7:47AM ; [facility] Work Phone: 1(573) 372-918602-29-2024 Progress note* Progress note Date Encounter Last Documented by 07/30/2023 Established Patient Last docu mented on 07/31/2023; 8:32 AM, Leonor ALVAREZ; [facility] Chief Complaint The Chief Complaint is: Patient was present for medical evaluation and met with [facility] to screen for current symptoms of [...] follow up with health center as needed. [facility]02-29-2024 Progress note* Progress note Date Encounter Last Documented by 07/30/2023 Medical Established Patient Last documented on 07/31/2023; 8:41 AM, Rosalba OLIVIERP; [facility] Chief Complaint The Chief Complaint is: [...] Patient reports at one time having a tube closing machine operator so she could get fitted for a CPAP before switching foster homes, patient reports it has been about a year. Provider discussed with patient to talk to rehabilitation caseworker to get back in with the tube closing machine operator to get a CPAP to help with [...] BP-Sitting L119/75 mmHg BP Cuff SizeRegular Pulse Rate-Jbwtmcc65 bpm Respiration Rate18 per min Temp-Nbysytfo69.4 F Mmtlyc34.4 in Ozfeqt420 lbs 9.6 oz Body Mass Index30.8 kg/m2 BMI Clhtugeyvn42.6 % Oxygen Irbiidfkyh08 % O2 DeviceNone (Room Air) [id number] % General Appearance: - Awake. - Alert. [...] concerns about exercise: promote physical activity Health [facility]01-03-2024 Evaluation noteWed Jun 03 11:30:13 EST 2023: No Assessment Information [id number] Evaluation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 Evaluation note* Diagnosis Chest pain made worse by breathing- Primary documented in this encounter [facility] noteNo Information AvailableOH[facility] Work Phone: Evaluation noteLower abdominal pain ;[facility] Work Phone: Evaluation note* Diagnosis Obstructive sleep apnea syndrome Obstructive sleep apnea (adult) (pediatric) documented in this encounter [facility] note* Diagnosis Abdominal pain Abdominal pain, unspecified site documented in this encounter [facility] note* Diagnosis Abdominal pain Abdominal pain, unspecified site documented in this encounter [facility] note* Diagnosis Right knee injury Injury, other and unspecified, knee, leg, ankle, and foot documented in this encounter [facility] note* Diagnosis Right knee injury Injury, other and unspecified, knee, leg, ankle, and foot documented in this encounter [facility] noteNYAP-NVEvaluation noteNYAP-NVEvaluation noteNYAP-NVEvaluation noteNYAP-NVEvaluation noteNYAP-NVEvaluation noteNYAP-[place] Evaluation noteNYAP-NVEvaluation noteThuMay 14 17:38:13 EST 2022: No Assessment Information NYAP-NVEvaluation note* Diagnosis Sprain of right knee, unspecified ligament, initial encounter- Primary documented in this encounter [facility] noteNYAP-OHEvaluation noteNYAP-OHEvaluation noteNYAP-[place] Evaluation noteNYAP-OHEvaluation noteNYAP-OHEvaluation noteNYAP-OHEvaluation noteNYAP-OHEvaluation noteNYAP-OHEvaluation noteNYAP-OHEvaluation noteNYAP-[place] Evaluation noteNYAP-OHEvaluation noteNYAP-OHEvaluation noteNYAP-OHEvaluation noteNYAP-OHEvaluation noteNYAP-OHEvaluation noteNYAP-OHEvaluation noteNYAP-[place] Evaluation noteNYAP-OHEvaluation noteNYAP-OHEvaluation noteNYAP-OHEvaluation noteNYAP-OHEvaluation noteNYAP-OHEvaluation noteNYAP-OHEvaluation noteNYAP-OH Evaluation noteNYAP-OHEvaluation noteNYAP-OHEvaluation noteNYAP-OHEvaluation noteNYAP-OHEvaluation noteNYAP-OHEvaluation noteNYAP-OHEvaluation noteNYAP-[place] Evaluation noteNYAP-OHHistory and physical note* HISTORY AND PHYSICAL NOTE History and physical note in formation is not available [facility] Work Phone: History of Present illness Narrative History of Present Illness not supported for this document type No History of Present Illness RecordedWesson Women[facility] Work Phone: Hospital course Narrative* HOSPITAL COURSE Information is not available [facility] Work Phone: Hospital Discharge instructions* Attachments The following attachments cannot be sent through Care Everywhere. * Pediatric Advisor: Chest Pain (Belizean) documented in this encounterWadsworth-[facility]alsp[facility] Discharge instructions* DISCHARGE INSTRUCTION Discharge instruction inform ation is not available [facility] Work Phone: Hospital Discharge instructions* Attachments The following attachments cannot be sent through Care Everywhere. * Knee Sprain: Pediatric (Belizean) * RICE: General Info (Belizean) documented in this encounterCENTRAL HARNETT HOSPITALInstructions Includes: Instructions for all patient encounters Education and Decision Aids were provided during visit for: Discussed nutritional needs teach healthy choices including fruits and vegetables Last Documented On 3 1:13PM ; [facility] Discussed concerns about exe rcise : promote physical activity Last Documented On 3 1:13PM ; [facility] mental [...] care is given for leg x-[facility] through [facility]. Provider contacted guardian to provide feedback on assisting patient for x-rays as recommended by medical provider Last Documented On 3 2:42PM ; [facility] Work Phone: Instructions Includes: Instructions for all [...] anxiety Last Documented On 4 8:32AM ; [facility] Discussed nutritional needs teach healthy choices including fruits and vegetables Last Documented On 4 11:57AM ; [facility] Discussed concerns about exe rcise : promote physical activity Last Documented On 4 11:57AM ; [facility] Not requesting contraception Last Documented On 4 11:57AM ; [facility] Discussed nutritional needs teach healthy choices including fruits and vegetables Last Documented On 3 1:13PM ; [facility] Discussed concerns about exe rcise : promote physical activity Last Documented On 3 1:13PM ; [facility] [...] care is given for leg x-[facility] through [facility]. Provider contacted guardian to provide feedback on assisting patient for x-rays as recommended by medical provider Last Documented On 3 2:42PM ; [facility] Work Phone: Instructions Includes: Instructions for all [...] anxiety Last Documented On 4 8:32AM ; [facility] Discussed nutritional needs teach healthy choices including fruits and vegetables Last Documented On 4 11:57AM ; [facility] Discussed concerns about exe rcise : promote physical activity Last Documented On 4 11:57AM ; [facility] Not requesting contraception Last Documented On 4 11:57AM ; [facility] Discussed nutritional needs teach healthy choices including fruits and vegetables Last Documented On 3 1:13PM ; [facility] Discussed concerns about exe rcise : promote physical activity Last Documented On 3 1:13PM ; [facility] met with patient to asse [...] care is given for leg x-rays through [facility]. Provider contacted guardian to provide feedback on assisting patient for x-rays as recommended by medical provider Last Documented On 3 2:42PM ; [facility] Work Phone: Nurse Note* NURSE NOTE Nurse note information is no t available [facility] Work Phone: Patient problem outcome Narrative Includes: Evaluations & Outcomes for active Goals No [facility] Work Phone: Physician Note* PHYSICIAN NOTE Physician note information i s not available [facility] Work Phone: Progress note* PROGRESS NOTE Progress note information is not available [facility] Work Phone: Reason for referral (narrative)No [facility] for [facility] Work Phone: Reason for referral (narrative)* Referring Provider Reason for Referral Melva Dean [facility] Servic e Needs [facility]-[place]Review of systems Narrative - Reported Review of Systems not supported for this document type No Review of Systems [facility] Work Phone: Summary Purpose Family History FAMILY HISTORY No Family History Informatio n Available Description Last Updated No significant medical history 3 Last Documented On 3 7:47AM ; [facility] Description Last Updated No significant medical history 3 Last Documented On 3 7:47AM ; [facility] Description Last Updated Maternal history of psychiatric disorder s 07/30/2023 Last Documented On 4 8:41AM ; [facility] Paternal history of cardiovascular disor jadiel 07/30/2023 Paternal history of psychiatric disorder s 07/30/2023 No significant medical history 3 Last Documented On 3 7:47AM ; [facility] Advance Directives No Advanced Directives Records [...] Referral Specialty Diagnoses / Procedures Referred By Brittnee goldberg Referred To Contact Radiology Diagnoses Obstructive sleep apnea syndrome Procedures XR Neck Soft [place] [address] Referral ID Status Reason Start Date Expiration Date Visits Re quested Visits Authorized [id number] Closed 04/16/2022 1 1 Specialty Diagnoses / Procedures Referred By Brittnee goldberg Referred To Contact Radiology Diagnoses Abdominal pain Procedures XR ABDOMEN 1 VIEW (KUB) [place] [address] Referral ID Status Reason Start Date Expiration Date Visits Re quested Visits Authorized [id number] Closed 04/23/2022 1 1 Specialty Diagnoses / Procedures Referred By Contac t Referred To Contact Lab Diagnoses Abdominal pain Procedures ERYTHROCYTE SEDIMENT [place] [address] Referral ID Status Reason Start Date Expiration Date Visits Re quested Visits Authorized [id number] Closed 04/23/2022 1 1 Specialty Diagnoses / Procedures Referred By Contac t Referred To Contact Lab Diagnoses Abdominal pain Procedures COMPREHENSIVE METABOLIC PANEL [place] [address] Referral ID Status Reason Start Date Expiration Date Visits Re quested Visits Authorized [id number] Closed 04/23/2022 1 1 Specialty Diagnoses / Procedures Referred By Contac t Referred To Contact Lab Diagnoses Abdominal pain Procedures C-REACTIVE PROTEIN [place] [address] Referral ID Status Reason Start Date Expiration Date Visits Re quested Visits Authorized [id number] Closed 04/23/2022 1 1 Specialty Diagnoses / Procedures Referred By Contac t Referred To Contact Lab Diagnoses Abdominal pain Procedures GAMMA GT [place] [address] Referral ID Status Reason Start Date Expiration Date Visits Re quested Visits Authorized [id number] Closed 04/23/2022 1 1 Specialty Diagnoses / Procedures Referred By Contac t Referred To Contact Lab Diagnoses Abdominal pain Procedures [place]SH [place] [address] Referral ID Status Reason Start Date Expiration Date Visits Re quested Visits Authorized [id number] Closed 04/23/2022 1 1 Specialty Diagnoses / Procedures Referred By Contac t Referred To Contact Lab Diagnoses Abdominal pain Procedures T4 FREE [place] [address] Referral ID Status Reason Start Date Expiration Date Visits Re quested Visits Authorized [id number] Closed 04/23/2022 1 1 Specialty Diagnoses / Procedures Referred By Contac t Referred To Contact Lab Diagnoses Abdominal pain Procedures CELIAC SEROLOGY LAB [place] [address] Referral ID Status Reason Start Date Expiration Date V isits Requested Visits Authorized [id number] Pending Review 04/23/2022 1 1 Specialty Diagnoses / Procedures Referred By Contac t Referred To Contact Lab Diagnoses Abdominal pain Procedures CBC AND DIFFERENTIAL [place] [address] Referral ID Status Reason Start Date Expiration Date Visits Re quested Visits Authorized [id number] Closed 04/23/2022 1 1 Specialty Diagnoses / Procedures Referred By Contac t Referred To Contact Radiology Diagnoses Right knee injury Procedures XR Knee 4+ View [place] [address] Referral ID Status Reason Start Date Expiration Date Visits Re quested Visits Authorized [id number] Closed 07/08/2022 1 1 Physical Exam Physical [...] section and content) DATE CREATED AUTHOR 11/25/2017 [facility] DATE CREATED AUTHOR AUTHOR'S ORGANIZ ATION 02/09/2019 [facility] DATE CREATED AUTHOR AUTHOR'S ORGANIZ ATION 02/19/2021 [facility] DATE CREATED AUTHOR AUTHOR'S ORGANIZ ATION 05/02/2021 [facility] DATE CREATED AUTHOR AUTHOR'S ORGANIZ ATION 06/20/2021 [facility] DATE CREATED AUTHOR AUTHOR'S ORGANIZ ATION 08/27/2021 [email or web address] DATE CREATED AUTHOR AUTHOR'S ORGANIZ ATION 11/16/2021 [facility] DATE CREATED AUTHOR AUTHOR'S ORGANIZ ATION 04/04/2022 [facility] DATE CREATED AUTHOR AUTHOR'S ORGANIZ ATION 04/19/2022 [facility] DATE CREATED AUTHOR AUTHOR'S ORGANIZ ATION 01/04/2023 [facility] DATE CREATED AUTHOR AUTHOR'S ORGANIZ ATION 01/21/2023 [facility] DATE CREATED AUTHOR AUTHOR'S ORGANIZ ATION 05/03/2023 [facility] DATE CREATED AUTHOR AUTHOR'S ORGANIZ ATION 12/24/2023 [facility] Reason for Visit (unrecogniz ed section and content) Reason Comments Chest Pain Specialty Diagnoses / Procedures Referred By Contac t Referred To Contact Radiology Diagnoses Obstructive sleep apnea syndrome Procedures XR Neck Soft [place] [address] Referral ID Status Reason Start Date Expiration Date Visits Re quested Visits Authorized [id number] Closed 04/16/2022 1 1 Specialty Diagnoses / Procedures Referred By Contac t Referred To Contact Radiology Diagnoses Abdominal pain Procedures XR ABDOMEN 1 VIEW (KUB) [place] [address] Referral ID Status Reason Start Date Expiration Date Visits Re quested Visits Authorized [id number] Closed 04/23/2022 1 1 Specialty Diagnoses / Procedures Referred By Contac t Referred To Contact Lab Diagnoses Abdominal pain Procedures CBC AND DIFFERENTIAL [place] [address] Referral ID Status Reason Start Date Expiration Date Visits Re quested Visits Authorized [id number] Closed 04/23/2022 1 1 Specialty Diagnoses / Procedures Referred By Contac t Referred To Contact Radiology Diagnoses Right knee injury Procedures XR Knee 4+ View [place] [address] Referral ID Status Reason Start Date Expiration Date Visits Re quested Visits Authorized [id number] Closed 07/08/2022 1 1 Specialty Diagnoses / Procedures Referred By Brittnee goldberg Referred To Contact Radiology Diagnoses Right knee injury Procedures XR Outside Study for [place] [address] Referral ID Status Reason Start Date Expiration Date V isits Requested Visits Authorized [id number] Canceled 07/08/2022 1 1 Reason Comments Leg [...] Care Teams (unrecognized sec tion and content) Electric Container Tester Relationship Specialty Start Date End Date No Primary Care[place] [address] PCP - General Pediatrics 10/22/21 CARE TEAM Care Team information is not available Electric Container Tester Relationship Specialty Start Date End Date Ten Gross MD [address] [place] [address] [place] [address] Physician Psychiatry 07/06/21 Electric Container Tester Relationship Specialty Start Date End Date Miriam Camilo NP [address] [place] [address] PCP - General Nurse Practitioner 01/29/22 Electric Container Tester Relationship Specialty Start Date End Date Miriam Camilo, SARANYA [address] [place] [address] PCP - General Nurse Practitioner 01/29/22 Electric Container Tester Relationship Specialty Start Date End Date Miriam Camilo, SARANYA [address] [place] [address] PCP - General Nurse Practitioner 01/29/22 Electric Container Tester Relationship Specialty Start Date End Date Ten Gross MD [address] [facility] [place] [address] Physician Psychiatry 07/06/21 Electric Container Tester Relationship Specialty Start Date End Date System, [...] BE BASED ON THE PRIMARY CLINICAL RECORDS. [facility] [employer] [facility]. provides no warranty or guarantee of the accuracy or completeness of information in this document.
--- NOTE | 2025-03-12 14:44 | ED_ITS ---
HPI HPI - General Adult General Chief complaint: Abdominal Pain Stated complaint: ABDOMINAL PAIN Time Seen by Provider: 03/12/25 14:20 Source: patient Mode of arrival: ambulance History of Present Illness HPI narrative: 19-year-old female presented to the emergency department for lower abdominal pain, particular in the right lower abdomen. She had some mild pain yesterday which persisted into today but then an hour ago while she was having a bowel movement she had severe pain in the right lower abdomen. No trauma. No constipation or diarrhea. No fever or flank pain. She reports the pain is severe. Related Data Home Medications ?Medication ?Instructions ?Recorded ?Confirmed fluvoxamine 100 mg tablet 100 mg PO BID 02/03/2409/21 haloperidol 5 mg tablet 5 mg PO .qhs 02/03/24 hydroxyzine pamoate 25 mg capsule 25 mg PO Q6H PRN anx iety 09/21/24 09/21/24 Previous Rx's ?Medication ?Instructions ?Recorded bereuykxle-mtxfisiubepct-throimml 1 cap PO Q8H PRN chas n 4 days #10 09/21/24 50 mg-300 mg-40 mg capsule caps (Fioricet) acetaminophen 300 mg-codeine 30 mg 1 tab PO Q6H PRN pa in 3 days #10 03/12/25 tablet tabs ibuprofen 800 mg tablet 800 mg PO Q8H PRN pain #20 t abs 03/12/25 Allergies Allergy/AdvReac Type Severity Reaction Status Date / Time No Known Drug Allergies Allergy Verified 08/03/24 01:03 Opioid HPI Opioid Management Most Recent Opioid Data: Last Pain Scale 7 Today, 15:42 Last MAR Pain Assessment Today, 15:42 Review of Systems ROS Narrative A ten point review of systems is negative except as noted above. [facility] Medical History (Updated 03/12/25 @ 16:23 by Magan Molina MD) Depressive disorder ?F32.A - Depression, unspecified (ICD-10) Anxiety ?F41.9 - Anxiety disorder, unspecified (ICD-10) ADHD ?F90.9 - Attention-deficit hyperactivity disorder, unspecified type (ICD-10) Tourette syndrome ?F95.2 - Tourette's disorder (ICD-10) Hypoglycemia ?E16.2 - Hypoglycemia, unspecified (ICD-10) Social History Little interest or pleasure in doing things: not at all Feeling down, depressed, or hopeless: not at all Exam Narrative Exam Narrative: Nurses note and vital signs reviewed and patient is not hypoxic. General:The patient appears uncomfortable Skin:Warm, dry, no pallor noted.There is no rash noted. Head:Normocephalic, atraumatic Eye: Normal conjunctiva, no drainage Ears, Nose, Mouth, and Throat: oral mucosa is moist. Nares patent. Cardiovascular:Regular Rate and Rhythm Respiratory:Patient is in no distress, no accessory muscle use, lungs are clear to auscultation, no wheezing, rales or rhonchi Back:non-tender GI: Tenderness present in the right lower abdomen. Musculoskeletal: The patient has no evidence of calf tenderness, no pitting edema, symmetrical pulses noted bilaterally Neurological:A&O, normal speech Psychiatric:Cooperative Constitutional Vital Signs, click to edit/add: Last Vital Signs Temp 98 F 03/12/25 14:16 Pulse 87 03/12/25 14:16 Resp 20 03/12/25 14:16 BP 114/67 03/12/25 14:16 Pulse Ox 98 03/12/25 14:16 O2 Del Method Room Air 03/12/25 14:16 Course Vital Signs Vital signs: Vital Signs Temperature 98 F 03/12/25 14:16 Pulse Rate 87 03/12/25 14:16 Respiratory Rate 20 03/12/25 14:16 Blood Pressure 114/67 03/12/25 14:16 Pulse Oximetry 98 03/12/25 14:16 Oxygen Delivery Method Room Air 03/12/25 14:16 Temperature 98 F 03/12/25 14:16 Pulse Rate 87 03/12/25 14:16 Respiratory Rate 20 03/12/25 14:16 Blood Pressure 114/67 03/12/25 14:16 Pulse Oximetry 98 03/12/25 14:16 Oxygen Delivery Method Room Air 03/12/25 14:16 Medical Decision Making MDM Narrative Medical decision making narrative: CT scan is consistent with ruptured ovarian cyst. She be treated symptomatically and was referred to gynecology for follow-up. Treatment diagnosis and follow-up were discussed with the patient. Differential Diagnosis Differential Diagnosis: Ruptured ovarian cyst, appendicitis, UTI, constipation Lab Data Lab results reviewed: Yes I reviewed the patient's lab results Labs: Lab Results 03/12/25 03/12/25 Range/Units 14:30 15:34 WBC 10.8 (4.0-11.0) 10^3/uL RBC 4.36 (4.20-5.40) 10^6/uL Hgb 14.0 (12.0-16.0) g/dL Hct 39.0 (36.0-48.0) % MCV 89.4 (81.0-99.0) fL MCH 32.1 (26.7-34.0) pg MCHC 35.9 H (29.9-35.2) g/dL RDW 12.3 (11.0-15.0) % Plt Count 362 (150-450) 10^3/uL MPV 9.2 L (9.5-13.5) fL Neut % (Auto) 68.7 (43.0-75.0) % Lymph % (Auto) 22.6 (20.5-60.0) % [place] % (Auto) 7.0 (1.7-12.0) % Eos % (Auto) 0.6 L (0.9-7.0) % Baso % (Auto) 0.6 (0.2-2.0) % Neut # (Auto) 7.4 H (1.4-6.5) 10^3/uL Lymph # (Auto) 2.4 (1.2-3.8) 10^3/uL [place] # (Auto) 0.8 (0.3-0.8) 10^3/uL Eos # (Auto) 0.1 (0.0-0.7) 10^3/uL Baso # (Auto) 0.1 (0.0-0.1) 10^3/uL Abs Immat Gran (auto) 0.05 H (0.00-0.03) 10^3/uL Imm/Tot Granulo (auto) 0.5 (0.0-0.5) % Sodium 137 (136-145) mmol/L Potassium 3.7 (3.5-5.1) mmol/L Chloride 104 (98-107) mmol/L Carbon Dioxide 19.8 L (21.0-32.0) mmol/L Anion Gap 16.9 BUN 10.0 (6.4-19.3) mg/dL Creatinine 0.84 (0.55-1.02) mg/dL Est GFR ( Amer) >60 (>=60 mL/min/1.73m^2) Est GFR (Non-Af Amer) >60 (>=60 mL/min/1.73m^2) BUN/Creatinine Ratio 11.9 Glucose 115 H (74-106) mg/dL Lactate 2.5 H* (0.4-2.0) mmol/L Calcium 9.0 (8.5-10.1) mg/dL Total Bilirubin 0.5 (0.2-1.0) mg/dL Direct Bilirubin 0.1 (0.0-0.2) mg/dL AST 14 L (15-37) U/L ALT 28 (14-59) U/L Alkaline Phosphatase 67 (46-116) U/L Total Protein 7.1 (6.4-8.2) g/dL Albumin 3.7 (3.4-5.0) g/dL Globulin 3.4 g/dL Albumin/Globulin Ratio 1.1 Lipase 32.0 (16.0-77.0) U/L Serum HCG, Qual Negative (NEGATIVE) Urine Color Lt. yellow (YELLOW) Urine Clarity Clear (CLEAR) Urine pH 7.5 (5.0-9.0) Ur Specific Addis 1.010 (1.005-1.025) Urine Protein Negative (NEG/TRACE) mg/dL Urine Glucose (UA) Negative (NEGATIVE) mg/dL Urine Ketones Negative (NEGATIVE) mg/dL Urine Occult Blood Negative (NEGATIVE) Urine Nitrite Negative (NEGATIVE) Urine Bilirubin Negative (NEGATIVE) Urine Urobilinogen 0.2 (0.2-1.0) EU/dL Ur Leukocyte Esterase Trace A (NEGATIVE) Urine RBC 0-2 (0-2) #/HPF Urine WBC 0-2 A (NONE SEEN) #/HPF Ur Squamous Epith Cells Few A (NONE/RARE) #/LPF Urine Crystals None seen (None Seen) #/HPF Urine Bacteria Trace A (NONE SEEN) #/HPF Urine Casts None seen (NONE SEEN) #/LPF Urine Mucus None seen (NONE SEEN) Imaging Data CT scan - abdomen: Radiologist's impression: ITS Impressions Abdomen/Pelvis CT 03/12/25 14:44 IMPRESSION: Free fluid adjacent the right ovary and along the right pericolic gutter possibly related to ruptured cyst or follicle. Otherwise negative acute inflammatory process or bowel obstruction. Impression dictated by: Hua Galvez M.D. 03/12/2025 4:13 PM Dictation Location: [place] [address] Electronically authenticated by: [id number] Y Date: 03/12/2025 16:13 Discharge Plan Discharge Chief Complaint: Abdominal Pain Clinical Impression: Ruptured ovarian cyst Patient Disposition: Home, Self-Care Time of Disposition Decision: 16:23 Condition: Good Mode of Transportation: Private Vehicle Prescriptions / Home Meds: New acetaminophen-codeine 300-30 mg tablet 1 tab PO Q6H PRN (Reason: pain) 3 Days Qty: 10 0RF ibuprofen 800 mg tablet 800 mg PO Q8H PRN (Reason: pain) Qty: 20 0RF No Action hydroxyzine pamoate 25 mg capsule 25 mg PO Q6H PRN (Reason: anxiety) veonohtfpw-egqukfzedvkja-drgu [Fioricet] 50-300-40 mg capsule 1 cap PO Q8H PRN (Reason: pain) 4 Days Qty: 10 0RF haloperidol 5 mg tablet 5 mg PO .qhs fluvoxamine 100 mg tablet 100 mg PO BID Print Language: Cook Islander Instructions: Ovarian Cyst (ED) Referrals: Phuc Del Real DO [Physician, WINK CUTTER OPERATOR] - 1 week Jhon Rosenbaum MD [Primary Care Provider, Family Practice]
--- NOTE | 2025-03-12 14:44 | CT_ITS ---
[facility] [place] [id number] Patient Name: MUKUND ARMSTRONG MRN: [id number] date: 2005 Sex: F Assigned Patient Location: ER Current Patient Location: ED.MAIN Accession/Order Number: [id number] Exam Date: 03/12/2025 15:21 Report Date: 03/12/2025 16:13 At the request of: DORIS LEAL MD Procedure: CT abdomen pelvis w con CT ABDOMEN AND PELVIS WITH INTRAVENOUS CONTRAST: CLINICAL HISTORY: RLQ pain, possible ruptured ovarian cyst COMPARISON: None TECHNIQUE: Spiral images were obtained through the abdomen and pelvis following the administration of intravenous contrast. This CT exam was performed using one or more following dose reduction techniques: Automated exposure control, adjustment of the mA and/or kV according to patient size, or use of iterative reconstruction technique. FINDINGS: Lung Bases: [Lung bases are clear] Organs:Liver, spleen, adrenals, kidneys, and pancreas are unremarkable. Gallbladder appears contracted.[ GI: Mild retained stool. No bowel obstruction. Appendix unremarkable.[ Pelvis:[Uterus and adnexa are unremarkable. Right ovary follicles noted. There is minimal free fluid right lower quadrant tracking along the right pericolic gutter.] Peritoneum/Retroperitoneum:No upper abdominal fluid. No free air. Aorta normal caliber.[ Abd wall/Bones:No suspicious osseous lesion.[ CT/CT abdomen pelvis w con IMPRESSION: Free fluid adjacent the right ovary and along the right pericolic gutter possibly related to ruptured cyst or follicle. Otherwise negative acute inflammatory process or bowel obstruction. Impression dictated by: Hua Galvez M.D. 03/12/2025 4:13 PM Dictation Location: [place] [address] Electronically authenticated by: [id number] Y Date: 03/12/2025 16:13
[2025-03-12 14:53] LABS: Hematocrit 39.0 % (36.0-48.0); Hemoglobin 14.0 g/dL (12.0-16.0); Immature Granulocytes Abs Auto 0.05 10^3/uL (0.00-0.03); Immature Granulocytes Pct Auto 0.5 % (0.0-0.5); Lymphocytes Absolute Auto 2.4 10^3/uL (1.2-3.8); Mean Corpuscular HGB Conc 35.9 g/dL (29.9-35.2); Mean Corpuscular Hemoglobin 32.1 pg (26.7-34.0); Mean Corpuscular Volume 89.4 fL (81.0-99.0); Platelet Count 362 10^3/uL (150-450); Red Blood Count 4.36 10^6/uL (4.20-5.40); White Blood Count 10.8 10^3/uL (4.0-11.0)
[2025-03-12 15:16] LABS: Alanine Aminotransferase 28 U/L (14-59); Albumin Globulin Ratio 1.1; Albumin Level 3.7 g/dL (3.4-5.0); Alkaline Phosphatase 67 U/L (46-116); Anion Gap 16.9; Aspartate Amino Transferase 14 U/L (15-37); Blood Urea Nitrogen 10.0 mg/dL (6.4-19.3); Calcium 9.0 mg/dL (8.5-10.1); Carbon Dioxide 19.8 mmol/L (21.0-32.0); Chloride 104 mmol/L (98-107); Estimated GFR (African America >60 (>=60 mL/min/1.73m^2); Estimated GFR (Non-African Ame >60 (>=60 mL/min/1.73m^2); Globulin 3.4 g/dL; Glucose 115 mg/dL (74-106); Lipase 32.0 U/L (16.0-77.0); Potassium 3.7 mmol/L (3.5-5.1); Sodium 137 mmol/L (136-145); Total Protein 7.1 g/dL (6.4-8.2)
[2025-03-12 15:25] LABS: Lactate/Lactic Acid 2.5 mmol/L (0.4-2.0)
[2025-03-12 15:41] LABS: Glucose Urine UA NEGATIVE (NEGATIVE)
[2025-03-12] MEDS: KETOROLAC TROMETHAMINE 30 MG/ML VIAL IVP (15:42)
[2025-03-12 15:50] LABS: Cast Seen? NONE SEEN #/LPF (NONE SEEN); Crystals Seen? None Seen #/HPF (None Seen)
== END 2025-03-12 16:38 | disposition home or self-care (01) ==
PROVIDERS: Emergency Provider Emergency Medicine; PCP Family Medicine
DX: N83.291 Other ovarian cyst, right side (principal)
CPT/HCPCS: 36415; 74177; 80053; 80076; 81001; 83605; 83690; 84703; 85025; 96374; 99285; J1885; Q9967